=== PATIENT | male | born 1960 | race Caucasian/White ===

== ENCOUNTER 2023-04-13 06:21 | Day surgery (SDC) | payer MEDICARE, OTHER, SELFPAY ==
--- NOTE | 2023-04-11 15:05 | PTCARENOTE ---
Patient has Dialysis Mon, Wed, Fri- requested later start time to coincide with dialysis appointment. Message left on machine for Crystal @ [facility]
[2023-04-12 12:25] VITALS: BMI 36.8
--- NOTE | 2023-04-12 12:49 | PTCARENOTE ---
Patients 04/12 4.8- Crystal @ Dr. David office notified
[2023-04-13 13:20] VITALS: BP 108/58
[2023-04-13 13:24] LABS: Glucose - Point of Care 170 mg/dl (70-99)
[2023-04-13] MEDS: TYLENOL 1000 MG PO (13:25)
[2023-04-13] MEDS: NORMOSOL-R 1000 IV (13:27)
[2023-04-13 13:28] VITALS: BMI 35.0
[2023-04-13 13:29] VITALS: BMI 35.0
[2023-04-13 15:59] LABS: Glucose - Point of Care 177 mg/dl (70-99)
[2023-04-13 16:45] VITALS: BP 112/62
[2023-04-13 17:15] VITALS: BP 114/62
== END 2023-04-13 17:20 | disposition home or self-care (01) ==
LOC: SDS 06:21
PROVIDERS: ATTENDING PHYSICIAN Student in an Organized Health Care Education/Training Program
DX: T81.31XA Disruption of external operation (surgical) wound, not elsewhere classified, initial encounter (principal); S91.302A Unspecified open wound, left foot, initial encounter; Y83.8 Other surgical procedures as the cause of abnormal reaction of the patient, or of later complication, without mention of misadventure at the time of the procedure; E11.40 Type 2 diabetes mellitus with diabetic neuropathy, unspecified
CPT/HCPCS: 11044; 82962; 87070; 87075; 87077; 87186; 87205

== ENCOUNTER 2023-05-13 21:19 | Inpatient (IN) | payer MEDICARE, OTHER, SELFPAY ==
[2023-05-13] VITALS (7 sets, daily range): BP systolic 107–134; BP diastolic 60–80; BMI 34.6; BMI 33.4
[2023-05-13 17:26] LABS: % Basophils 0.6 % (0-2); % Eosinophils 0.7 % (0-6); % Immature Granulocytes 0.7 % (0-0.5); % Lymphocytes 3.9 % (20.5-51.1); % Monocytes 9.3 % (1.7-9.3); % Neutrophils 84.8 % (42.2-75.2); Absolute Basophils 0.1 10^3/uL (0-0.2); Absolute Eosinophils 0.1 10^3/uL (0-0.7); Absolute Immature Granulocytes 0.1 10^3/uL (0-0.05); Absolute Lymphocytes 0.4 10^3/uL (1.2-3.4); Absolute Monocytes 0.9 10^3/uL (0.1-0.6); Absolute Neutrophils 8.2 10^3/uL (1.4-6.5); Hematocrit 30.4 % (39.0-52.0); Hemoglobin 10.5 g/dL (13.0-18.0); Mean Corp Hgb Conc. 34.5 g/dL (33.0-37.0); Mean Corpuscular Hgb 31.2 pg (27.0-31.0); Mean Corpuscular Volume 90.2 fL (80.0-94.0); Mean Platelet Volume 9.3 fL (7.4-10.4); Nucleated Red Blood Cells % 0 % (-); Platelet Count 269 10^3/uL (130-400); Red Blood Cell Count 3.37 10^6/uL (4.70-6.10); Red Cell Dist. Width 13.9 % (11.5-14.5); White Blood Cell Count 9.6 10^3/uL (4.8-10.8)
[2023-05-13 17:39] LABS: Lactic Acid 3.2 mmol/L (0.7-2.0)
[2023-05-13 17:48] LABS: COVID-19 Antigen Negative (Negative)
[2023-05-13 17:53] LABS: ALT (SGPT) 31 U/L (0-50); AST (SGOT) 36 U/L (17-59); Albumin 3.6 g/dl (3.5-5.0); Alkaline Phosphatase 154 U/L (38-126); Blood Urea Nitrogen 67 mg/dl (9-20); Calcium 8.5 mg/dl (8.4-10.2); Carbon Dioxide 27 mmol/L (22-30); Chloride 92 mmol/L (98-107); Estimated Creatinine Clearance 16 ml/min; Glucose 275 mg/dl (70-99); Potassium 4.9 mmol/L (3.5-5.1); Sodium 130 mmol/L (135-145); Total Bilirubin 1.3 mg/dl (0.2-1.3); Total Protein 7.3 g/dl (6.3-8.2); eGFR 10.54
--- NOTE | 2023-05-13 19:50 | ED.GENMED ---
History of Present Illness
General
Chief Complaint: Weakness
Source: patient, records and ambulance crew
Exam Limitations: none
Time Seen by Provider: 05/13/23 17:20
Nursing documentation reviewed up to this point in time: agreed with
Travel History
Have you had any contact with someone who has COVID-19?: No
Do you have any symptoms of coronavirus? Fever > 100 degrees, chills, cough, shortness of breath, sore throat, loss of taste or smell, muscle aches, or headache?: No
History of Present Illness
History of Present Illness:
63-year-old male with a past medical history of hypertension, hyperlipidemia, CAD, CHF, insulin-dependent diabetes, ESRD on dialysis (M/W/ scheduling, last dialysis was this past Tuesday and he did not receive dialysis today) who presents to the
emergency department from home via EMS for evaluation of fatigue, generalized weakness, subjective fever/chills. Of note patient has been dealing with a chronic wound in the left lower extremity and has been following with Dr. Hall for this
issue. He had debridement and packing of these wounds in December and then again in March had incision and drainage with debridement of the wound and has had a wound VAC in place since then. He presents today because over the past week he tells
me that he has been feeling unwell. He says he has been very weak and fatigued. He says that he has had subjective fever and chills although no objective fever. Today when he presented to dialysis he was very lethargic and he was sent to the
emergency room for assessment. He did not receive dialysis. Triage note mentions nausea, vomiting, diarrhea although patient denies these things to me. He also denies abdominal pain. He does still make urine and has not noticed any dysuria or
change in frequency. He says he feels some mild shortness of breath. He has not been coughing he says. He denies chest pain. He says that he has leg pain but it does not necessarily seem worse than normal. Denies any other specific symptoms.
Past History
Past History
ED Past Medical History: CAD, CHF, HTN, Hypercholesterolemia, IDDM, NE, Renal failure and Other (PAD, obesity, sleep apnea, cardiomyopathy)
ED Past Surgical History: Cardiac, Tonsilectomy and Other (Vascular)
Social History
Tobacco: Non-smoker
Alcohol: None
Drug: None
Personal:
Living: with family
Employment: Employed
Family History
Family History: Negative Diabetes, Hypertension or CAD
Review of Systems
Review of Systems
All Other Systems: ROS reviewed and negative except as documented in HPI and ROS
Constitutional: Reports fever, fatigue and chills
EENT: Denies sore throat or runny nose
Respiratory: Reports trouble breathing; Denies cough
Cardiac: Denies chest pain or palpitations
ABD/GI: Denies abdominal pain, nausea, vomiting or diarrhea
: Denies flank pain
Musculoskeletal: Denies neck pain or back pain
Neurological: Denies dizzy, headache, weakness or numbness
Phy Exam
Physical Exam
Physical Exam:
General: Sitting in bed lethargic but arousable to voice and follows commands, oriented x 3
Head: Normocephalic, atraumatic
Eyes: Conjunctiva normal, pupils equal round and reactive to light bilaterally
Throat: Airway intact, handling secretions
Neck: Trachea midline, supple without meningismus
Lungs: Faint rales at the lung bases, slight hypoxia requiring 2 L nasal cannula; mild tachypnea
Heart: Tachycardia with regular rhythm, no murmurs, gallops, or rubs
Abd: Soft, non distended, nontender
Neuro: No gross deficits
Skin: no rash
Extremities: Patient has wound VAC in place on lateral left lower leg; he has some erythema extending from the margins of the wound towards the ankle; he has chronic venous stasis changes in his lower legs bilaterally; his distal extremities are
warm and well-perfused
Scores
Heart Failure Risk
Heart Failure Risk Score: Not Applicable
Heart Score for Chest Pain Patients
STEMI patient?: Not applicable
Withdrawal Assessment of Alcohol
Withdrawal Assessment Completed?: Not applicable
Course
Orders/Labs/Results
Orders:
Orders
05/13/23 17:09
Electrocardiogram (*1) Urgent
Reason for Study: Other
Other Reason for Exam: Possible Sepsis
Cardiac Monitoring- Treatment ONCE
EKG- Treatment ONCE
IV Insert/Care/Rem.- Treatment PRN
Urinalysis Reflex To Culture Urgent
Date Specimen was Collected: 05/13/23
Time Specimen was Collected: 17:09
CR Chest Portable - 1 View Urgent
Comment:
Reason For Exam: fever
Reason Study Needs to be Portable: Unable to Transport
O2 Therapy [RESP] Urgent
Titrate/Wean O2 to maintain O2 sat greater than (%): 93
Special Instructions: TO MAINTAIN CONTINUOUS O2 SATS > OR = 93%
Pulse Ox/cont/shift [RESP] Urgent
Quantity: 1
Special Instructions: CONTINUOUS
05/13/23 17:12
COVID-19 Antigen Urgent
Source: Nasal Swab
Complete Blood Count/With Diff Urgent
Comprehensive Metabolic Panel Urgent
Lactic Acid Q4H
Comment: ON ICE, CANCEL 2ND ORDER IF FIRST LACTIC ACID LEVEL <2
Blood Culture Q30M
NAM Source: Blood/Venous
Specimen Description:
Comment: FROM 2 SEPARATE SITES
Influenza A+B Rapid Molecular Urgent
NAM Source: Nasal Swab
Specimen Description:
05/13/23 17:15
Blood Culture Q30M
NAM Source: Blood/Venous
Specimen Description:
Comment: FROM 2 SEPARATE SITES
05/13/23 19:47
Piperacillin/Tazo 3.375 Gram [Zosyn] 3.375 gram in 50 ml IV NOW
05/13/23 19:55
Vancomycin [Vancocin] 2,000 mg 0.9% Sodium Chloride 500 ml [Nss] 500 ml IV NOW
05/13/23 20:00
VANCOMYCIN Pharmacy to Dose [VANCOCIN Pharmacy to Dose] 1 each Pharmacy To Prepare [Call Pharmacy To Prepare] 0 ml IV PER PROTOCOL
05/13/23 20:04
NEPHROLOGY CONSULT Urgent
Consulting Provider: Jun Barbour V.
Was physician already notified: Yes
05/13/23 21:15
Lactic Acid Q4H
Comment: ON ICE, CANCEL 2ND ORDER IF FIRST LACTIC ACID LEVEL <2
Abnormal Lab Results
05/13/23
17:12
RBC 3.37 L 10^6/uL
(4.70-6.10)
Hgb 10.5 L g/dL
(13.0-18.0)
Hct 30.4 L %
(39.0-52.0)
MCH 31.2 H pg
(27.0-31.0)
Abs Immat Gran (auto) 0.1 H 10^3/uL
(0-0.05)
Absolute Neuts (auto) 8.2 H 10^3/uL
(1.4-6.5)
Absolute Lymphs (auto) 0.4 L 10^3/uL
(1.2-3.4)
Absolute Monos (auto) 0.9 H 10^3/uL
(0.1-0.6)
Immature Gran % 0.7 H %
(0-0.5)
Neutrophils % 84.8 H %
(42.2-75.2)
Lymphocytes % 3.9 L %
(20.5-51.1)
Sodium 130 L mmol/L
(135-145)
Chloride 92 L mmol/L
(98-107)
BUN 67 H mg/dl
(9-20)
Creatinine 5.7 H* mg/dL
(0.7-1.3)
Glucose 275 H mg/dl
(70-99)
Lactic Acid 3.2 H mmol/L
(0.7-2.0)
Alkaline Phosphatase 154 H U/L
(38-126)
05/13/23 17:12
05/13/23 17:12
Vital Signs
Initial and Last Documented VS:
Initial Vital Signs
Temp Pulse Resp BP Pulse Ox
37.9 C 109 24 107/60 93
05/13/23 17:05 05/13/23 17:05 05/13/23 17:05 05/13/23 17:05 05/13/23 17:05
Last Documented Vital Signs
Temp Pulse Resp BP Pulse Ox
37.9 C 89 30 113/70 95
05/13/23 17:05 05/13/23 20:00 05/13/23 20:00 05/13/23 20:00 05/13/23 20:00
MDM/Problems Addressed
Differential Diagnosis Includes:
Infection including pneumonia, UTI, wound infection, bacteremia, viral syndrome; differential would also include electrolyte derangement, anemia, dehydration, polypharmacy
MDM/Problems Addressed:
63-year-old male with extensive medical history presents for generalized weakness and subjective fever/chills for the past week. Sent to the emergency room by dialysis today did not receive his treatment. He arrives to us tachycardic, tachypneic
with borderline fever at 100.3 �F, hypoxic requiring 2 L nasal cannula. Exam as above. Plan to place an IV check labs including a CBC and a CMP, lactate, blood cultures. Will send a urinalysis and culture. Will swab for COVID and influenza.
Will check a chest x-ray and EKG. Will monitor closely reassess after the above.
Labs reviewed: CBC shows stable anemia, no significant leukocytosis. CMP shows elevated BUN/creatinine in keeping with ESRD; he is hyperglycemic with no signs to suggest DKA. His lactate is elevated at 3.2. Urinalysis pending. Viral swabs
negative. Chest x-ray shows findings more consistent with interstitial edema although interstitial pneumonia consideration�certainly with missed dialysis would lean more towards interstitial edema although we will plan to cover patient with
broad-spectrum antibiotics for possible pneumonia; other consideration would be bacteremia with dialysis access versus lower extremity wounds potential portals for infection. Also could include cellulitis/osteomyelitis from left lower extremity
wound. Patient will need dialysis although no clear indication for emergent dialysis. Discussed with nephrology they will consult on patient. Discussed case with hospitalist for admission.
Chronic conditions affecting care:
ESRD requiring dialysis, diabetes
*Radiology
Radiology exam reviewed: preliminary read by ED provider and radiology read reviewed
*Pulse Oximetry
Patient hypoxic: yes
*EKG
Interpreted by ED Provider?: Yes
Heart Rate: 102
Rate: tachycardiac
Rhythm: sinus tachycardia
[place]: left axis deviation
Interval: normal interval
QRS Pattern: right bundle branch block
Ischemia: non-specific ST changes
*Critical Care Note
Total Time (30-74mins, 75-104mins- exclusive of procedures): Not Applicable
Data Reviewed
Source: patient, records and ambulance crew
Patient Management
Discussion with other providers: Hospitalist (Discussed with hospitalist) and Master Tax Advisor (Discussed with nephrology)
Escalation/DeEscalation of care consider admission/obs:
Admission indicated
ED Attending Note
-
Portions of this chart may have been created with voice recognition software.� Occasional wrong word or��sound alike� substitutions may have occurred due to the inherent limitations of voice recognition software.
Discharge Plan
Departure
Patient Disposition: Admit
Date of Disposition: 05/13/23
Time of Disposition: 20:04
Admit to doctor: Saurabh
Presentation/result/management discussed w/ accepting MD/DO: Hospitalist
Discharge Problem:
Wound infection, Pulmonary edema
Prescriptions:
No Action
atorvastatin 80 MG tablet
80 mg PO HS
aspirin 81 MG tablet,delayed release (DR/EC)
81 mg PO DAILY
carvedilol 3.125 mg Tablet
3.125 mg PO BID
levothyroxine 25 MCG tablet
25 mcg PO DAILY AT 0700
midodrine 5 mg Tablet
5 mg PO TID@0800,1300,1800 30 Days Qty: 90 0RF
acetaminophen [Tylenol Ex Str Arthritis Pain] 500 mg Tablet
1,000 mg PO Q6H PRN (Reason: mild pain)
insulin glargine [Lantus Solostar U-100 Insulin] 100 unit/mL (3 mL) Insulin Pen
80 unit SC HS
insulin aspart U-100 [Novolog FlexPen U-100 Insulin] 100 unit/mL (3 mL) insulin pen
20 unit SC AC
gabapentin 300 mg capsule
300 mg PO NOON
Referrals:
Syl Henry DO [Family Provider] -
Interventions
Interventions:
*Risk Screen - Suicide Last Done: 05/13/23 17:05
*General Assessment Last Done: 05/13/23 17:05
*Neglect/Abuse Screening Last Done: 05/13/23 17:05
*ED COVID-19 Vaccine History Last Done: 05/13/23 17:05
ED- Cardiac Assessment Last Done: 05/13/23 17:21
ED- Neurological Assessment Last Done: 05/13/23 17:21
ED- Pulmonary Assessment Last Done: 05/13/23 17:21
[2023-05-13] MEDS: ZOSYN 50 IV (19:57)
--- NOTE | 2023-05-13 20:33 | HPS.HSE ---
Addendum entered and electronically signed by Leonard Wiley DO 05/13/23 22:37:
Patient seen and examined independently. Agree with findings and plan as set forth by Savannah Patten PA-C.
Patient is a 63y M with PMH significant for ESRD on HD, DM-II and CHF who presents to ED complaining of generalized weakness and fatigue. Patient states that he had some nausea and loose stools 'the other day'. He denies any specific cough,
dyspnea, abdominal pain or urinary complaints. Patient states, 'my told me I had a fever'. Patient does note that he had loose stool / incontinence on arrival to HD session today and that is why he left dialysis. His brought him to the
ED for further evaluation.
Patient indicates that fecal incontinence is not an entirely uncommon occurrence for him.
Patient also notes that wound nurse reported some new, purulent discharge in the area of his chronic L heel ulcer during his most recent dressing / VAC change.
Ass:
Diarrhea / Fecal Incontinence
Fever / Fatigue
Left Heel Osteomyelitis / Chronic Wound
ESRD on HD
ASCVD
Chronic HFrEF
DM-II with Peripheral Neuropathy
Hypothyroidism
Plan:
Admit for further evaluation and treatment.
Will continue abx started in the ED for now pending further culture data.
Check stool studies given loose stool / incontinence. ? viral GE.
Podiatry evaluation for L heel exam / wound assessment.
Nephrology evaluation for HD needs during acute stay.
Continue usual outpatient med regimen.
Monitor for any new / focal symptoms or complaints.
Original Note:
Family Physician
-
Family Physician: Sofia Henry, DO
Chief Complaint
-
Weakness
History of Present Illness
Patient is a 63 year old male with PMH of end stage renal disease on dialysis, insulin-dependent type II diabetes mellitus, hypertension, and congestive heart failure who present to the ED via EMS complaining of fatigue and weakness. He was due for
dialysis today but did not receive it. His last dialysis treatment was this past Tuesday. He admits to one episode of diarrhea and dry heaving this morning. He has a chronic wound of his left lower extremity and had incision and drainage with
debridement in March 2023. He reports that the wound vac was replaced this morning and appeared to have more purulent drainage. He denies vomiting, cough, shortness of breath, abdominal pain, fever, sweats, and chills, but states that his
said he had a fever and chills.
Medical History
Past Medical History
Past Medical History: Reports Other
Additional Past Medical History:
ASCVD s/p CABG and LLE Stent
Chronic HFrEF
Essential Hypertension
Hyperlipidemia
Diabetes Mellitus
Diabetic Neuropathy
ESRD on HD
Chronic Thrombocytopenia
Hypothyroidism
Past Surgical History: Reports Other
Additional Past Surgical History:
CABG
LLE Stent
LUE AV Fistula
Social History
Tobacco: Former Smoker
Alcohol: None
Personal:
Living: With Family
Family History
Family History: Not pertinent
Allergies / Home Medications
Allergies reflects when Allergies were last updated in [facility].
Home Medications with original date entered in [facility]
Allergy/Medication List:
Allergies
Allergy/AdvReac Type Severity Reaction Status Date / Time
scallops Allergy Vomiting Verified 04/13/23 13:14
Home Medications
aspirin 81 mg tablet,delayed release 81 mg PO DAILY Blood clot prevention/tx 03/10/20
atorvastatin 80 mg tablet 80 mg PO HS High cholesterol 03/10/20
carvedilol 3.125 mg tablet 3.125 mg PO BID Heart Disease/Condition 08/18/22
levothyroxine 25 mcg tablet 25 mcg PO DAILY AT 0700 Thyroid 08/18/22
midodrine 5 mg tablet 5 mg PO TID@0800,1300,1800 30 days #90 tabs 10/18/22
acetaminophen 500 mg tablet 1,000 mg PO Q6H PRN mild pain 12/28/22
insulin glargine 100 unit/mL (3 mL) subcutaneous pen (Lantus Solostar U-100 Insulin) 80 unit SC HS 12/28/22
insulin aspart U-100 100 unit/mL (3 mL) subcutaneous pen (Novolog FlexPen U-100 Insulin aspart) 20 unit SC AC 04/11/23
gabapentin 300 mg capsule 300 mg PO NOON 05/13/23
Review of Systems
-
A 12 point ROS was completed and negative except as noted: Yes
Constitutional: Reports Fever; Denies Night Sweats or Chills
Respiratory: Denies Cough or Trouble Breathing
Cardiac: Denies Chest Pain or Palpitations
Abdomen/GI: Reports Nausea and Diarrhea (One episode this morning); Denies Abdominal Pain or Vomiting (Reports some dry heaves this morning)
: Denies Dysuria or Frequency
Physical Exam
Vital Signs
Vital Signs
Temp Pulse Resp BP Pulse Ox
100.3 F 89 30 113/70 95
05/13/23 17:05 05/13/23 20:00 05/13/23 20:00 05/13/23 20:00 05/13/23 20:00
Physical Exam
General: Comfortable and Conversant
HEENT: Anicteric and Moist mucous membranes
Respiratory: Rales (Bilateral bases) and Non Labored Respirations
Cardiac: S1/S2, Regular Rhythm and Murmur (2/6 systolic murmur)
GI: Soft, Non Tender and Other (Protuberant)
Rectal: Deferred by Provider
Musculoskeletal: No Clubbing and No Cyanosis
Skin: Warm, Dry and Other (Wound Vac in place to the left foot/heel)
Neuro: Awake, Alert, Oriented and Nonfocal/grossly intact
Psych: Calm
Laboratory Results
-
05/13/23 17:12
05/13/23 17:12
Laboratory Results
Lactic Acid 3.2 mmol/L (0.7-2.0) H 05/13/23 17:12
Total Bilirubin 1.3 mg/dl (0.2-1.3) 05/13/23 17:12
AST 36 U/L (17-59) 05/13/23 17:12
ALT 31 U/L (0-50) 05/13/23 17:12
Alkaline Phosphatase 154 U/L (38-126) H 05/13/23 17:12
Data Reviewed
-
Lab Data: Labs Reviewed by me
Old Records: Reviewed
Impression/Plan
-
Generalized Weakness/Fatigue with Low Grade Fever, possible Left Heel Wound Infection
-Consult Podiatry
-Consult Wound Care
-Continue Vancomycin and Zosyn
ESRD on HD
-Consult Nephrology
-Usual dialysis days are MoWeFr, however patient did not received HD today May 12
-Plan for HD tomorrow
ASCVD s/p CABG and LLE Stent
-Continue aspirin
Chronic HFrEF
-Monitor Is&Os and Daily Weights
Hyperlipidemia
-Continue atorvastatin
Diabetes Mellitus, Type II
-Continue Lantus and Novolog
-Monitor sugars and continue coverage insulin
Diabetic Neuropathy
-Continue gabapentin
Hypothyroidism
-Continue Synthroid
DVT proph: SC Heparin
Code Status: Full Code
[2023-05-13] MEDS: VANCOCIN 540 MG IV (20:49)
[2023-05-13] MEDS: TYLENOL 1000 MG PO (22:50)
[2023-05-13] MEDS: LIPITOR 80 MG PO (22:50)
[2023-05-13 22:52] LABS: Glucose - Point of Care 272 mg/dl (70-99)
[2023-05-13] MEDS: HEPARIN 5000 UNITS SC (22:52)
[2023-05-13] MEDS: LANTUS 0.800000000000000044 UNITS SC (22:53)
[2023-05-13 23:43] LABS: Lactic Acid 1.2 mmol/L (0.7-2.0)
[2023-05-14] VITALS (7 sets, daily range): BP systolic 80–129; BP diastolic 51–65; O2SAT 95; BMI 33.4
[2023-05-14] MEDS: ZOSYN 50 IV ×3 (04:38→20:59)
--- NOTE | 2023-05-14 05:47 | PTCARENOTE ---
Received pt from ED, transported via stretcher, pulled over to hospital bed by staff x3, 2000mg bag of Vancomycin infusing through R wrist, see APR. Pt AAOx3, tolerating 2L O2 at 98%, denies pain, remainder of assessment as documented. Pt with with
vac intact to LLE extending to L heel, dressing dry and intact, pump set to 125mm/hg. Pt with multiple wounds, see Wound Management documentation, wound care performed. Pt oriented to unit and call quinn, bed alarm in place, pt resting comfortably
with call quinn in hand.
[2023-05-14] MEDS: SYNTHROID 25 MCG PO (06:35)
--- NOTE | 2023-05-14 07:49 | PHA.VAN.IN ---
Addendum entered and electronically signed by Raz Johnson [facility] 05/14/23 09:32:
dialysis scheduled for today 05/13, random level ordered for 05/14 in am
Original Note:
Assessment
- Assessment
Renal Function: Patient has ESRD, on chronic Hemodialysis
Hemodialysis Schedule: MWF (last dialysis 05/10)
Concomitant Antimicrobials: zosyn
Plan
- Plan
Initial / Loading Dose: prn by level, no sure of next dialysis day
Monitoring: no level today, consider for tomorrow or when dialysis is scheduled
Pharmacokinetics Vancomycin I
- -
Patient Age: 63
Patient Sex: Male
Vancomycin Day #: 1
Indication: Skin And Soft Tissue
Requesting Provider: aby thomas
Height / Weight:
Height 5 ft 9 in
Actual Weight 102.512 kg
IBW in k.7
- Vital Signs / Lab Results
Temp Pulse Resp BP Pulse Ox
101.4 F H 89 18 111/64 98
05/13/23 22:00 05/13/23 22:00 05/13/23 22:00 05/13/23 22:00 05/14/23 01:42
Lab Results - Hematology
05/13/23
17:12
WBC 9.6
Lab Results - Chemistry
05/13/23
17:12
BUN 67 H
Creatinine 5.7 H*
Estimated Creat Clear 16
Albumin 3.6
05/13/23 05/13/23
17:12 23:18
Lactic Acid 3.2 H 1.2
Microbiology Results
05/13/23 17:15 Blood Culture - Preliminary
Blood/Venous Positive culture in progress
Gram Stain - Final
05/13/23 17:12 Blood Culture - Preliminary
Blood/Venous Positive culture in progress
Gram Stain - Preliminary
05/13/23 17:12 Influenza Types A & B ([facility]) - Final
Nasal Swab Negative for Influenza A & B, NAAT
Negative results must be combined with clinical observations
and patient history.
Nucleic Acid Amplification test (NAAT)performed on the
[employer] platform.
[2023-05-14] MEDS: TYLENOL 1000 MG PO ×2 (08:15→17:41)
[2023-05-14] MEDS: ProAmatine 5 MG PO ×4 (08:19→23:59)
[2023-05-14] MEDS: HEPARIN SC (08:21)
[2023-05-14 08:23] LABS: Glucose - Point of Care 204 mg/dl (70-99)
[2023-05-14] MEDS: NOVOLOG FLEXPEN-HIGH RESISTANCE 4 UNITS SC (08:23)
[2023-05-14 08:35] LABS: Hematocrit 31.9 % (39.0-52.0); Hemoglobin 10.5 g/dL (13.0-18.0); Mean Corp Hgb Conc. 32.9 g/dL (33.0-37.0); Mean Corpuscular Hgb 30.3 pg (27.0-31.0); Mean Corpuscular Volume 91.9 fL (80.0-94.0); Mean Platelet Volume 9.6 fL (7.4-10.4); Platelet Count 266 10^3/uL (130-400); Red Blood Cell Count 3.47 10^6/uL (4.70-6.10); Red Cell Dist. Width 14.2 % (11.5-14.5); White Blood Cell Count 8.6 10^3/uL (4.8-10.8)
[2023-05-14 08:43] LABS: Glycohemoglobin (HgbA1c) 9.3 % (4.0-5.6)
--- NOTE | 2023-05-14 09:04 | W.PN.NEPH.HD ---
Assessment
-
Patient seen on hemodialysis
Systolic blood pressure 111 at current UF for 2 kg
Gram-positive cocci bloodstream likely due to underlying heel wound
Left upper extremity AV fistula with good function
Progress Note - Hemodialysis
-
Date of Service: May 14, 2023
Duration: 30 minutes and 3 hours
Potassium Bath: 2
Calcium Bath: 2.5
Opti-Dialyzer: 160
Ultrafiltration: Other (2)
Blood Flow: 400
Dialysate Flow: 600
Heparin: None
EPO: None
[2023-05-14] MEDS: MANNITOL 12.5 GRAMS IV ×2 (09:05→10:05)
--- NOTE | 2023-05-14 09:06 | W.CON.NEPH ---
Consultation
-
Date/Time Consultation Requested: May 14, 2023 7:00 AM
Date/Time Consultation Performed: May 14, 2023 8:30 AM
Requesting Provider: Abdirashid
Performing Provider: nannette
Reason for Consultation: End-stage renal disease
Medical History
-
Chief Complaint: End-stage renal
History of Present Illness:
The patient is a 63-year-old male with a past medical history of end-stage renal disease on dialysis Tuesday at the [facility] dialysis unit. He has a longstanding history of diabetes with multiple microvascular
complications including ongoing poorly healing left heel wound. He is maintained on insulin for his diabetes. He is maintained chronically on midodrine for chronic hypotension. He receives MATTHIEU therapy for his anemia of chronic kidney disease. He
presented to the hospital last evening with fevers Malaise and loose stool. There was a strong suspicion that his underlying fevers and leukocytosis were due to his heel wound and he has now grown out gram-positive cocci in his bloodstream. We
were consulted for his end-stage renal disease manage as he was not dialyzed yesterday.
Past Medical History
1. ESRD on dialysis TTS at [facility] since 2019 due to diabetic
� � nephropathy.
2. Diabetes type 2, microvascular complications of neuropathy and
� � nephropathy.
3. CAD with CABG 2017 and subsequent stents in 2021.
4. Hypertension, now relative hypotension.
5. Hyperlipidemia.
6. Pulmonary hypertension.
7. Hypothyroidism.
8. Sleep apnea.
9. Chronic fluid overload due to dietary indiscretions.
10.Ischemic cardiomyopathy, EF 30%.
11.History of peripheral vascular disease and right toe
� � amputation.
12.Recent history of left foot wound and peripheral vascular
� � disease, bilateral lower extremity stenting.
13.Sleep apnea.
14.Sleep apnea surgery.
15.Nasal polypectomy.
16.Left upper extremity AV fistula.
�
Social History
Ex tobacco
No current alcohol abuse, he does drink occasional
Family History
No chronic kidney disease
Allergies / Home Medications
Allergy/AdvReac Type Severity Reaction Status Date / Time
scallops Allergy Vomiting Verified 04/13/23 13:14
Medication Instructions Recorded Confirmed Type
aspirin 81 mg tablet,delayed 81 mg PO DAILY Blood clot 03/10/20 05/13/23 History
release prevention/tx
atorvastatin 80 mg tablet 80 mg PO HS High cholesterol 03/10/20 05/13/23 History
carvedilol 3.125 mg tablet 3.125 mg PO BID Heart 08/18/22 05/13/23 History
Disease/Condition
levothyroxine 25 mcg tablet 25 mcg PO DAILY AT 0700 Thyroid 08/18/22 05/13/23 History
midodrine 5 mg tablet 5 mg PO TID@0800,1300,1800 30 days 10/18/22 05/13/23 Rx
#90 tabs
acetaminophen 500 mg tablet 1,000 mg PO Q6H PRN mild pain 12/28/22 05/13/23 History
insulin glargine 100 unit/mL (3 80 unit SC HS Diabetes 12/28/22 05/13/23 History
mL) subcutaneous pen (Lantus
Solostar U-100 Insulin)
insulin aspart U-100 100 unit/mL 20 unit SC AC Diabetes 04/11/23 05/13/23 History
(3 mL) subcutaneous pen (Novolog
FlexPen U-100 Insulin aspart)
gabapentin 300 mg capsule 300 mg PO NOON Pain 05/13/23 05/13/23 History
Review of Systems
-
History Source: Patient
All other systems: Negative unless noted
Constitutional: Fever and Fatigue
EENT: No Symptoms
Respiratory: No Symptoms
Cardiac: No Symptoms
Abdomen/GI: Nausea and Diarrhea (Some noted loose stools with incontinence)
: No Symptoms
Musculoskeletal: Edema (Plus edema with noted heel wound)
Skin: No Symptoms
Neurological: Other (Noted lower extremity neuropathy)
Endocrine: No Symptoms
Hematologic/Lymphatic: Other (Left upper extremity AV fistula)
Physical Exam
Vital Signs
Vital Signs
Temp Pulse Resp BP Pulse Ox
101.6 F H 94 18 106/65 94
05/14/23 07:40 05/14/23 07:40 05/14/23 07:40 05/14/23 07:40 05/14/23 07:40
Lab Results
05/14/23 07:01
05/14/23 07:01
WBC 8.6 10^3/uL (4.8-10.8) 05/14/23 07:01
RBC 3.47 10^6/uL (4.70-6.10) L 05/14/23 07:01
Hgb 10.5 g/dL (13.0-18.0) L 05/14/23 07:01
Hct 31.9 % (39.0-52.0) L 05/14/23 07:01
Plt Count 266 10^3/uL (130-400) 05/14/23 07:01
eGFR 10.54 05/13/23 17:12
Albumin 3.6 g/dl (3.5-5.0) 05/13/23 17:12
Physical Exam
General: AOx3
HEENT: PERRL, EOMI, Anicteric, Conjunctivae Clear, Ear/Nose Intact, Neck Supple, Trachea Midline, No JVD and No Thyromegaly
Respiratory: Clear
Cardiac: S1/S2 and Regular Rate/Rhythm
Breast: Deferred by me
Abdomen: Soft, Nontender, Nondistended and Normal Bowel Sounds
Rectal: Other
Genito-urinary: Other
Musculoskeletal: Cyanosis and Other (plus edema, left upper extremity AV fistula with good thrill and bruit)
Skin: No Rash
Neuro: Nonfocal/Grossly Intact and Other (neurosensory loss)
Hematologic/Lymphatic: No Cervical Lymphadenopathy and No Supraclavicular Lymphadenopathy
Psych: Mood/afflect pleasant
Assessment/Plan
-
Impression;
Fevers/Sepsis/gram Positive bacteremia
End-stage renal disease Tuesday
Left heel wound infection
Diabetes
History of CABG and left lower extremities to
History of congestive heart
Diabetic neuropathy
Hypothyroid
Chronic Hypotension
Anemia
Ischemic cardiomyopathy EF 30%
Pulmonary hypertension
Left upper extremity AV
Plan:
-Patient will undergo hemodialysis today orders provide
-Zosyn and vancomycin will be appropriately renally dosed
-Broad-spectrum antibiotics provided for gram-positive bacteremia likely due to left heel wound
-Left upper extremity AV fistula with good no evidence of infection
-Will provide MATTHIEU therapy as needed for anemia
-Midodrine provided for chronic hypotension
-Appropriate dietary and fluid restrictions to be ordered for ESRD
Data Reviewed
-
Radiology: Image Personally Visualized and interpreted (Chest x-ray personally reviewed by myself no evidence of infiltrate sternal wires noted some bilateral interstitial edema)
Labs: Labs Reviewed by me (Reviewed BMP CBC chest x-ray)
Old Records: Reviewed (Reviewed nephrology consult from September 2022 when patient presented for ESRD and left heel wound)
[2023-05-14 09:19] LABS: Blood Urea Nitrogen 79 mg/dl (9-20); Calcium 8.4 mg/dl (8.4-10.2); Carbon Dioxide 24 mmol/L (22-30); Chloride 92 mmol/L (98-107); Estimated Creatinine Clearance 14 ml/min; Glucose 185 mg/dl (70-99); Magnesium 2.2 mg/dl (1.6-2.3); Sodium 131 mmol/L (135-145); eGFR 9.17
--- NOTE | 2023-05-14 10:21 | PTCARENOTE ---
Pt will pull off o2 at times.. This am on 2L of o2 he was 94%. Ra pox at sleep 86-87%. P currently getting HD.
[2023-05-14 13:12] LABS: Glucose - Point of Care 105 mg/dl (70-99)
[2023-05-14] MEDS: NOVOLOG FLEXPEN-HIGH RESISTANCE SC ×4 (13:13→17:44)
[2023-05-14] MEDS: NEURONTIN 300 MG PO (13:20)
[2023-05-14] MEDS: ASPIR LOW (ENTERIC COATED) 81 MG PO (13:20)
[2023-05-14] MEDS: FLUSH (NSS) 2 FLUSH IV (13:21)
[2023-05-14] MEDS: COREG PO ×2 (13:31→21:00)
[2023-05-14] MEDS: NOVOLOG FLEXPEN-HIGH RESISTANCE 1 UNITS SC (13:33)
[2023-05-14] MEDS: NOVOLOG FLEXPEN-HIGH RESISTANCE 20 UNITS SC (13:33)
--- NOTE | 2023-05-14 14:08 | W.PN.HOSP.TC ---
Today's Communication/Plan
-
CW ABX
DC Vanco
Consult ID
CW HD
Await podiatry input
Assessment / Plan
Assessment / Plan
Generalized Weakness/Fatigue with Fever sec to infection
Streptococcus agalactiae bacteremia-suspect from left foot. Consult ID. Continue with antibiotics
Chronic left heel wound-consult podiatry. Patient has been following podiatry for long time. Last debridement a week ago.
-Consult Podiatry
-Consult Wound Care
ESRD on HD
-Usual dialysis days are MoWe[facility], however patient did not received HD today May 12
-HD ongoing today
Acute hypoxic respiratory insufficieny
Pt on O2;cxr �Diffusely increased interstitial markings which i suspect clinically interstitial edema
Follow with HD
ASCVD s/p CABG and LLE Stent
-Continue aspirin
Chronic HFrEF
-Monitor Is&Os and Daily Weights
Hyperlipidemia
-Continue atorvastatin
Diabetes Mellitus, Type II
-Continue Lantus and Novolog
-Monitor sugars and continue coverage insulin
Diabetic Neuropathy
-Continue gabapentin
Hypothyroidism
-Continue Synthroid
DVT proph: SC Heparin
Code Status: Full Code
Total time spent on today's encounter was 52 minutes which included time spent in counseling the patient regarding diagnosis and treatment plan as listed above, goals of care, and symptom management. Case was discussed with nursing staff,
specialists, . All labs and imaging personally reviewed by me. Remainder the time spent in detailed review of previous records, lab data, imaging, and other medical provider documentation.
Anticipated Discharge: > 48 hours
Subjective/Interval History
-
Date of Service: May 14, 2023
Feeling bit better.
Denies shortness of breath at rest. Currently receiving hemodialysis. He is on nasal cannula 2 L without any respiratory distress.
No nausea vomiting.
Objective Data
-
Labs:
Laboratory Results
05/14/23
07:01
WBC 8.6
Hgb 10.5 L
Hct 31.9 L
Plt Count 266
Sodium 131 L
Potassium 5.0
Chloride 92 L
Carbon Dioxide 24
BUN 79 H
Creatinine 6.4 H*
Glucose 185 H
Calcium 8.4
Vital Signs:
Vital Signs
Temp Pulse Resp BP Pulse Ox
98.8 F 79 18 103/58 94
05/14/23 10:00 05/14/23 13:31 05/14/23 07:40 05/14/23 13:31 05/14/23 07:40
I&O
05/13/23 05/14/23 05/15/23
06:59 06:59 06:59
Intake Total 240 / 240
Balance 240 / 240
Review of Systems
-
Constitutional: Reports Fever; Denies Chills
EENT: Denies Sore Throat
Respiratory: Denies Cough
Abdomen/GI: Denies Abdominal Pain, Nausea, Vomiting or Diarrhea
Genitourinary: Denies Dysuria
Neuro: Denies Dizzy
Physical Exam
-
General: No Apparent Distress
HEENT: Moist Mucous Membranes
Respiratory: Crackles (few bibasal); Negative Wheezes
Cardiac: Regular Rhythm and S1/S2
GI: Soft, Nontender, Nondistended and Normal Bowel Sounds
Neuro: AO x 3
Psych: Calm
Data Reviewed
-
Labs: Labs Reviewed by me
--- NOTE | 2023-05-14 16:01 | CM ---
Reviewed the chart notes and spoke with the patient at the bedside. The patient resides with his spouse in a two story home with one step to enter. The patient has a rolling walker and has had [facility] in the past. The patient has been to [facility]. The patient receives HD M-W- at [facility]. The patient confirmed his pharmacy of choice is the [facility]. CM continues to be available to patient/family and is monitoring medical plan for needs at discharge.
Plan: Discharge plans will depend on the patient's progress.
--- NOTE | 2023-05-14 16:41 | CON.ID ---
Consultation
-
Date/Time Consultation Requested: 05/14/23 12:42
Date/Time Consultation Performed: 05/14/23 16:42
Requesting Provider: Dr Iraheta
Performing Provider: Dr Sales
Reason for Consultation: Bacteremia
Chief Complaint / Past History
Chief Complaint
purulent drainage from L heel wound at vac change
History of Present Illness
Mr Harrison is a 63 year old male with ESRD on HD, Dm2, chf who presentd here for weakness and fatigue; reported fever and he was found to have purulence at the site of a chronic heel wound when the wound vac was changed. Denied: cough,
dyspnea, abdominal pain or urinary complaints. Also some loose stool on arrival to HD.
Since arrival he has been febrile to 101.6, bp stable, wbc 8.6, hg b10.5, plt 266, L shift is noted, eos normal, K 5.0, cr 6.4, a1c 9.3, t bili 1.3, ast 36, alt 31, alk phos 154, a ua is pending, serology neg, a foot Xray is done but not yet read -
will await formal radiology input, suspect neuropathic foot, a wound culture is in progress as are anaerobic cultures, blood cultures x2 in progress - GBS; previous 04/13/23 wound culture enterobacter, alcaligenes, gnr; patient currently on zosyn.
ID is consulted for assistance with management
Past History
Additional Past Medical History:
ASCVD s/p CABG and LLE Stent
Chronic HFrEF
Essential Hypertension
Hyperlipidemia
Diabetes Mellitus
Diabetic Neuropathy
ESRD on HD
Chronic Thrombocytopenia
Hypothyroidism
Additional Past Surgical History:
CABG
LLE Stent
LUE AV Fistula
Allergy History:
scallops Allergy (Verified 04/13/23 13:14)
Vomiting
Medications Reviewed: Yes
Social History
Tobacco: Former Smoker
Alcohol: None
Personal:
Family History
Family History: Not Pertinent
Review of Systems
Review of Systems
General: Negative Fever or Chills
All systems: All other systems were reviewed and were negative
Vital Signs
Temp Pulse Resp BP Pulse Ox
100.5 F H 94 18 105/52 96
05/14/23 15:35 05/14/23 15:35 05/14/23 15:35 05/14/23 15:35 05/14/23 15:35
Physical Exam
Physical Exam
Constitutional: No Acute Distress
Cardiovascular: Regular Rate and S1/S2; Negative Murmur or Rub
Pulmonary: Clear and Symmetric; Negative Wheezes, Rales or Rhonchi
Gastrointestinal: Soft, Non Tender, Non Distended and Normal Bowel Sounds
Skin: Warm and Dry; Negative Rash or Jaundice
Wound: Other (dressing clean, dry, intact)
Neurological: Awake
Lab / Diagnostic Study Results
05/14/23 07:01
05/14/23 07:01
Abs Immat Gran (auto) 0.1 10^3/uL (0-0.05) H 05/13/23 17:12
Absolute Neuts (auto) 8.2 10^3/uL (1.4-6.5) H 05/13/23 17:12
Absolute Lymphs (auto) 0.4 10^3/uL (1.2-3.4) L 05/13/23 17:12
Absolute Monos (auto) 0.9 10^3/uL (0.1-0.6) H 05/13/23 17:12
Absolute Basos (auto) 0.1 10^3/uL (0-0.2) 05/13/23 17:12
Immature Gran % 0.7 % (0-0.5) H 05/13/23 17:12
Neutrophils % 84.8 % (42.2-75.2) H 05/13/23 17:12
Lymphocytes % 3.9 % (20.5-51.1) L 05/13/23 17:12
Monocytes % 9.3 % (1.7-9.3) 05/13/23 17:12
Eosinophils % 0.7 % (0-6) 05/13/23 17:12
Basophils % 0.6 % (0-2) 05/13/23 17:12
Lactic Acid 1.2 mmol/L (0.7-2.0) 05/13/23 23:18
Microbiology Results
Micro:
05/14/23 16:28 Anaerobic Culture - Pending
Foot - Left
05/14/23 16:28 Wound Culture - Pending
Foot - Left Gram Stain - Pending
05/13/23 17:12 Blood Culture - Preliminary
Blood/Venous Streptococcus agalactiae
Gram Stain - Final
05/13/23 17:15 Blood Culture - Preliminary
Blood/Venous Positive culture in progress
Gram Stain - Final
05/14/23 06:50 MRSA Screen - Pending
Nose
05/13/23 17:12 Influenza Types A & B ([facility]) - Final
Nasal Swab Negative for Influenza A & B, NAAT
Negative results must be combined with clinical observations
and patient history.
Nucleic Acid Amplification test (NAAT)performed on the
[employer] platform.
Assessment / Plan
Fevers
Chronic Foot wound
- follow up radiology read of xray
- podiatry consulted
- follow up wound culture
- continue zosyn
- follow clinically
[2023-05-14 17:32] LABS: Glucose - Point of Care 70 mg/dl (70-99)
[2023-05-14] MEDS: HEPARIN 5000 UNITS SC ×2 (17:42→23:13)
--- NOTE | 2023-05-14 18:00 | PTCARENOTE ---
Pt wound vac needing to be charged. Medical Information Specialist at home pt states. Will call to bring in his pharmaceutical analyst. Will cont to monitor.
--- NOTE | 2023-05-14 18:03 | PTCARENOTE ---
Called pt's to bring in wound vac distance learning program coordinator.
[2023-05-14 19:07] LABS: Glucose - Point of Care 128 mg/dl (70-99)
[2023-05-14 22:00] LABS: Glucose - Point of Care 128 mg/dl (70-99)
[2023-05-14] MEDS: LANTUS 0.800000000000000044 UNITS SC (23:00)
[2023-05-14] MEDS: LIPITOR 80 MG PO (23:00)
[2023-05-15 02:08] VITALS: BP 92/50
--- NOTE | 2023-05-15 02:08 | PTCARENOTE ---
Pt hypotensive at HS, denies dizziness or any other symptoms. BP 91/50, 77 scheduled [employer]d and parking station attendant [employer] CAR[employer] made aware. Rechecked BP and 82/54, 76, R[employer]AL [employer] CARETAKER made aware again and new order for midodrine 5 mg administered. Pt remains aaox3 and easily
arousable. Will continue to monitor, see VS documentation.
[2023-05-15] MEDS: ZOSYN 50 IV ×3 (04:02→20:24)
[2023-05-15] MEDS: ProAmatine 5 MG PO ×4 (04:15→17:41)
[2023-05-15 05:16] VITALS: BP 94/55
[2023-05-15 05:46] VITALS: BMI 33.3
[2023-05-15 06:00] VITALS: BMI 33.3
[2023-05-15] MEDS: SYNTHROID 25 MCG PO (06:27)
[2023-05-15 07:20] VITALS: BP 93/55
[2023-05-15 07:28] LABS: Glucose - Point of Care 129 mg/dl (70-99)
--- NOTE | 2023-05-15 08:30 | W.PN.UPDATE ---
Update Note
Progress Note Update
Status post left lower extremity I&D with bone debridement and wound VAC placement April 13, 2023. Patient unfortunately appears to be doing worse and Dr. Hall saw him yesterday and ordered an MRI of the left lower extremity. MRI to be
performed and Dr. Hall will follow-up afterwards.
[2023-05-15] MEDS: ASPIR LOW (ENTERIC COATED) 81 MG PO (09:15)
[2023-05-15] MEDS: COREG PO ×2 (09:15→20:28)
[2023-05-15] MEDS: HEPARIN 5000 UNITS SC ×3 (09:15→22:10)
[2023-05-15] MEDS: NOVOLOG FLEXPEN-HIGH RESISTANCE 20 UNITS SC ×2 (09:17→12:39)
[2023-05-15] MEDS: NOVOLOG FLEXPEN-HIGH RESISTANCE 1 UNITS SC ×2 (09:17→12:31)
--- NOTE | 2023-05-15 11:37 | W.PN.NEPH.PH ---
Today's Communication / Plan
-
Dialysis tomorrow
Assessment/Plan
-
Impression;
Fevers/Sepsis/gram Positive bacteremia
End-stage renal disease Tuesday
Left heel wound infection
Diabetes
History of CABG and left lower extremities to
History of congestive heart
Diabetic neuropathy
Hypothyroid
Chronic Hypotension
Anemia
Ischemic cardiomyopathy EF 30%
Pulmonary hypertension
Left upper extremity AV
Plan:
-HD for tomorrow orders provided
-Midodrine has been utilized for hypotension
-Zosyn appropriately renally dosed for left heel wound with strong suspicion for osteomyelitis
-Streptococcus agalactia bacteremia noted
-Left upper extremity AV fistula with good function on
-Will provide MATTHIEU therapy as needed for anemia
-Appropriate dietary and fluid restrictions to be ordered for ESRD
-
-
Date of Service: May 15, 2023
CC / HPI / ROS
-
Chief Complaint:
End-stage renal disease
History of Present Illness:
End-stage renal disease on Tuesday schedule
Hemodynamically labile on midodrine support
On Zosyn for strep agalactiae bacteremia
Review of Systems:
No chest pain or shortness of breath
Fevers noted
Labs
-
Labs:
WBC 8.6 10^3/uL (4.8-10.8) 05/14/23 07:01
RBC 3.47 10^6/uL (4.70-6.10) L 05/14/23 07:01
Hgb 10.5 g/dL (13.0-18.0) L 05/14/23 07:01
Hct 31.9 % (39.0-52.0) L 05/14/23 07:01
Plt Count 266 10^3/uL (130-400) 05/14/23 07:01
Sodium 131 mmol/L (135-145) L 05/14/23 07:01
Potassium 5.0 mmol/L (3.5-5.1) 05/14/23 07:01
Chloride 92 mmol/L (98-107) L 05/14/23 07:01
Carbon Dioxide 24 mmol/L (22-30) 05/14/23 07:01
BUN 79 mg/dl (9-20) H 05/14/23 07:01
Creatinine 6.4 mg/dL (0.7-1.3) H* 05/14/23 07:01
eGFR 9.17 05/14/23 07:01
Glucose 185 mg/dl (70-99) H 05/14/23 07:01
Calcium 8.4 mg/dl (8.4-10.2) 05/14/23 07:01
Albumin 3.6 g/dl (3.5-5.0) 05/13/23 17:12
Physical Exam
-
Vital Signs:
Vital Signs
Temp Pulse Resp BP Pulse Ox
98.3 F 79 18 93/55 98
05/15/23 07:20 05/15/23 07:20 05/15/23 07:20 05/15/23 07:20 05/15/23 07:20
Cardiovascular:: Regular rate and rhythm
Respiratory:: Bilateral: CTA
Lung Excursion:: Normal
Abdomen:: Nontender and Soft
Bowel Sounds:: Normal
Extremity Edema:: +1: Bilateral:
Ritchie Catheter: No
[2023-05-15 12:18] LABS: Glucose - Point of Care 104 mg/dl (70-99)
[2023-05-15] MEDS: NEURONTIN 300 MG PO (12:30)
[2023-05-15] MEDS: FLUSH (NSS) 2 FLUSH IV (12:31)
--- NOTE | 2023-05-15 14:49 | W.PN.HOSP.TC ---
Today's Communication/Plan
-
CW ABX
Follow MRI foot
Assessment / Plan
Assessment / Plan
Generalized Weakness/Fatigue with Fever sec to infection - improved
Streptococcus agalactiae bacteremia-suspect from left foot. Appt ID input. Continue with Zosyn
Chronic left heel wound- podiatry following. Patient has been following podiatry for long time. Last debridement a week ago.
-MRI foot ordered
-cw Wound Care
ESRD on HD
-Usual dialysis days are MoWeFr, however patient did not received HD today May 12
-HD tomorrow
Acute hypoxic respiratory insufficieny
Pt on O2;cxr �Diffusely increased interstitial markings which i suspect clinically interstitial edema
Resolved with HD
ASCVD s/p CABG and LLE Stent
-Continue aspirin
Chronic HFrEF
-Monitor Is&Os and Daily Weights
Hyperlipidemia
-Continue atorvastatin
Diabetes Mellitus, Type II
-Continue Lantus and Novolog
-Monitor sugars and continue coverage insulin
Diabetic Neuropathy
-Continue gabapentin
Hypothyroidism
-Continue Synthroid
DVT proph: SC Heparin
Code Status: Full Code
Anticipated Discharge: Today
Subjective/Interval History
-
Date of Service: May 15, 2023
No further fever
Breathing improved. Off of oxygen.
No nausea vomiting.
Objective Data
-
Vital Signs:
Vital Signs
Temp Pulse Resp BP Pulse Ox
98.3 F 79 18 93/55 98
05/15/23 07:20 05/15/23 07:20 05/15/23 07:20 05/15/23 07:20 05/15/23 08:30
I&O
05/14/23 05/15/23 05/16/23
06:59 06:59 06:59
Intake Total 240 / 240 720 / 720
Output Total 400 / 400
Balance 240 / 240 320 / 320
Review of Systems
-
Constitutional: Denies Fever or Chills
EENT: Denies Sore Throat
Respiratory: Denies Cough
Cardiac: Denies Chest Pain
Neuro: Denies Dizzy
Physical Exam
-
General: No Apparent Distress
HEENT: Moist Mucous Membranes
Respiratory: Clear to Auscultation
Cardiac: Regular Rhythm and S1/S2
GI: Soft
Musculoskeletal: Other (left foot in dressing)
Neuro: AO x 3
Data Reviewed
-
Labs: Labs Reviewed by me
--- NOTE | 2023-05-15 15:15 | PTCARENOTE ---
Pt c/o burning when voiding this afternoon. Bladder scanned pt for est 60mls or urine. Will cont to monitor.
[2023-05-15 15:30] VITALS: BP 101/58
--- NOTE | 2023-05-15 15:58 | W.PN.ID1 ---
Date of Service
Date of Service: May 15, 2023
Today's Communication
continue zosyn pending culture
Assessment / Plan
Fevers
Chronic Foot wound
- MRI pending, foot xray suggestive of progression of osteomyelitis
- wound now probes to bone
- continue zosyn pending culture
- follow clinically
Chief Complaint
-: Other (osteomyelitis of the calcaneous)
Subjective / Review of Systems
no further fevers
bp stable
wound culture in progress
tolerating current therapies
Vital Signs / Physical Exam
Vital Signs
Vital Signs
Temp Pulse Resp BP Pulse Ox
98.1 F 80 18 101/58 93
05/15/23 15:30 05/15/23 15:30 05/15/23 15:30 05/15/23 15:30 05/15/23 15:30
Physical Exam
Constitutional: No Acute Distress
Cardiovascular: Regular Rate and S1/S2; Negative Murmur or Rub
Pulmonary: Clear and Symmetric; Negative Wheezes or Rales
Gastrointestinal: Soft, Non Tender, Non Distended and Normal Bowel Sounds
Skin: Warm and Dry; Negative Rash or Jaundice
Wound: Other (dressing clean, dry, intact)
Objective Data
Lab Data
Lab Results
05/14/23 07:01
05/14/23 07:01
Estimated Creat Clear 14 ml/min 05/14/23 07:01
Lactic Acid 1.2 mmol/L (0.7-2.0) 05/13/23 23:18
Total Bilirubin 1.3 mg/dl (0.2-1.3) 05/13/23 17:12
AST 36 U/L (17-59) 05/13/23 17:12
ALT 31 U/L (0-50) 05/13/23 17:12
Alkaline Phosphatase 154 U/L (38-126) H 05/13/23 17:12
Most recent labs reviewed.
Micro Results:
05/14/23 16:28 Wound Culture - Pending
Foot - Left Gram Stain - Preliminary
05/15/23 05:06 Stool Leukocytes - Final
Feces/Stool
05/13/23 17:15 Blood Culture - Preliminary
Blood/Venous Streptococcus agalactiae
Gram Stain - Final
05/13/23 17:12 Blood Culture - Preliminary
Blood/Venous Streptococcus agalactiae
Gram Stain - Final
05/14/23 06:50 MRSA Screen - Final
Nose No Methicillin Resistant Staphylococcus aureus isolated.
05/15/23 05:07 Salmonella/Shigella Culture - Pending
Feces/Stool Campylobacter Culture - Pending
Shiga Toxin Test - Pending
05/14/23 16:28 Anaerobic Culture - Pending
Foot - Left
05/13/23 17:12 Influenza Types A & B ([facility]) - Final
Nasal Swab Negative for Influenza A & B, NAAT
Negative results must be combined with clinical observations
and patient history.
Nucleic Acid Amplification test (NAAT)performed on the
[employer] platform.
[2023-05-15 17:17] LABS: Glucose - Point of Care 81 mg/dl (70-99)
[2023-05-15] MEDS: NOVOLOG FLEXPEN-HIGH RESISTANCE SC ×2 (17:26→17:27)
[2023-05-15 22:01] LABS: Glucose - Point of Care 164 mg/dl (70-99)
[2023-05-15] MEDS: LIPITOR 80 MG PO (22:09)
[2023-05-15] MEDS: LANTUS 0.800000000000000044 UNITS SC (22:09)
--- NOTE | 2023-05-15 22:23 | PTCARENOTE ---
Patient reports difficulty urinating; he states that it feels like he is not fully emptying his bladder; bladder scan shows 142 mls; will continue to monitor.
[2023-05-15 23:12] VITALS: BP 125/73
[2023-05-16] MEDS: ZOSYN 50 IV ×3 (03:59→20:29)
[2023-05-16 05:56] VITALS: BMI 33.5
[2023-05-16 06:00] VITALS: BMI 33.5
[2023-05-16] MEDS: ProAmatine 10 MG PO (06:22)
[2023-05-16] MEDS: SYNTHROID 25 MCG PO (06:22)
[2023-05-16 07:24] LABS: Glucose - Point of Care 157 mg/dl (70-99)
[2023-05-16 07:30] VITALS: BP 112/70
--- NOTE | 2023-05-16 07:55 | W.PN.UPDATE ---
Update Note
Progress Note Update
Mr. Harrison is resting comfortably in bed this morning. He endorses continued aching pain in the foot, but otherwise reports he is doing well.
Directed exam of left lower extremity reveals compressive dressing intact without bleeding or drainage. Patient able to wiggle toes. Sensation to light touch diminished. Capillary refill <2 seconds. VSS, afebrile.
Gram stain shows rare WBC and gram positive cocci. Cultures pending.
--We are awaiting MRI of the left foot for further treatment recommendations.
--Continue vanc/zosyn. Appreciate ID recommendations.
--NWB to LLE.
--Continue 3x/week dressing changes. Recommend collagen dressings.
--Continue current pain management regimen.
--Orthopedics/podiatry will continue to follow along.
[2023-05-16 08:05] LABS: Hemoglobin 9.6 g/dL (13.0-18.0)
[2023-05-16 08:19] LABS: Carbon Dioxide 22 mmol/L (22-30); Chloride 95 mmol/L (98-107); Potassium 4.2 mmol/L (3.5-5.1); Sodium 128 mmol/L (135-145)
[2023-05-16] MEDS: RETACRIT 8000 UNITS IV (08:22)
[2023-05-16] MEDS: MANNITOL 12.5 GRAMS IV (08:40)
[2023-05-16] MEDS: ASPIR LOW (ENTERIC COATED) 81 MG PO (08:49)
[2023-05-16] MEDS: HEPARIN 5000 UNITS SC ×2 (08:49→17:35)
[2023-05-16] MEDS: COREG PO ×2 (08:50→20:27)
[2023-05-16] MEDS: ProAmatine 5 MG PO ×3 (08:50→17:35)
[2023-05-16] MEDS: NOVOLOG FLEXPEN-HIGH RESISTANCE SC ×3 (08:57→17:37)
--- NOTE | 2023-05-16 09:33 | VNURNOTE ---
Patient is current with [facility] since 11/06 w/ SN, will monitor progress and plan at discharge.
--- NOTE | 2023-05-16 10:48 | W.PN.NEPH.HD ---
Assessment
-
Seen on HD. no complaints. Abx for foot infection. Await MRI
VSS, access ok
Progress Note - Hemodialysis
-
Date of Service: May 16, 2023
Duration: 30 minutes and 3 hours
Potassium Bath: 2
Calcium Bath: 2.5
Opti-Dialyzer: 160
Ultrafiltration: Other (kg)
Blood Flow: 400
Dialysate Flow: 600
Heparin: 0
EPO: 8000units
--- NOTE | 2023-05-16 11:05 | W.PN.HOSP.TC ---
Today's Communication/Plan
-
US lower extremities
MRI foot pending
CW ABX
Assessment / Plan
Assessment / Plan
Generalized Weakness/Fatigue with Fever sec to infection - improved
Streptococcus agalactiae bacteremia-suspect from left foot. Appt ID input. Continue with Zosyn
Chronic left heel wound- podiatry following. Patient has been following podiatry for long time. Last debridement a week ago.
-MRI foot ordered
-cw Wound Care
ESRD on HD
-Usual dialysis days are MoWeFr, however patient did not received HD today May 12
-HD tomorrow
Acute hypoxic respiratory insufficieny
Pt on O2;cxr �Diffusely increased interstitial markings which i suspect clinically interstitial edema
Resolved with HD
ASCVD s/p CABG and LLE Stent
-Continue aspirin
Chronic HFrEF
-Monitor Is&Os and Daily Weights
Hyperlipidemia
-Continue atorvastatin
Diabetes Mellitus, Type II
-Continue Lantus ;decrease dose of Novolog with meals as blood sugars are good to low
-Monitor sugars and continue coverage insulin
Diabetic Neuropathy
-Continue gabapentin
Hypothyroidism
-Continue Synthroid
DVT proph: SC Heparin
Code Status: Full Code
Check US left leg due to swelling
Anticipated Discharge: > 48 hours
Subjective/Interval History
-
Date of Service: May 16, 2023
Pain present from the left heel wound area. Managed with pain medication. He also has peripheral neuropathy bilateral lower extremity.
Resolved shortness of breath. Not requiring oxygen. Tolerating diet. Did not sleep much last night as he can get sleep in the hospitals.
Objective Data
-
Labs:
Laboratory Results
05/16/23
07:22
Hgb 9.6 L
Hct 28.0 L
Sodium 128 L
Potassium 4.2
Chloride 95 L
Carbon Dioxide 22
Vital Signs:
Vital Signs
Temp Pulse Resp BP Pulse Ox
98.1 F 70 18 112/70 98
05/16/23 07:30 05/16/23 08:50 05/16/23 07:30 05/16/23 08:50 05/16/23 10:01
I&O
05/15/23 05/16/23 05/17/23
06:59 06:59 06:59
Intake Total 720 / 720 1180 / 1180
Output Total 400 / 400 85 / 85
Balance 320 / 320 1095 / 1095
Review of Systems
-
All other systems: Reviewed and negative
Physical Exam
-
General: No Apparent Distress
HEENT: Moist Mucous Membranes
Respiratory: Clear to Auscultation
Cardiac: Regular Rhythm and S1/S2
GI: Soft
Musculoskeletal: Edema, Right Lower Extrem and Edema, Left Lower Extrem (more than right)
Neuro: AO x 3
Psych: Calm
Data Reviewed
-
Labs: Labs Reviewed by me
--- NOTE | 2023-05-16 11:36 | CM ---
Addendum entered by Sarah Lynch RN 05/16/23 16:00:
IMM signed and placed on chart.
Original Note:
Reviewed the chart notes and spoke with the patient at the bedside on HD. PT recommending SNF/rehab. Discussed with the patient the being on dialysis is a barrier for some facilities due to transportation to and from HD. Patient agreeable with
referrals being sent to area facilities that maybe able to accommodate a dialysis patient. CM continues to be available to patient/family and is monitoring medical plan for needs at discharge.
Plan: Discharge to SNF/rehab once medically stable and a bed is found. No precert required.
[2023-05-16 11:53] LABS: Glucose - Point of Care 86 mg/dl (70-99)
[2023-05-16] MEDS: NEURONTIN 300 MG PO (12:01)
[2023-05-16] MEDS: NOVOLOG FLEXPEN-HIGH RESISTANCE 1 UNITS SC (12:13)
--- NOTE | 2023-05-16 12:16 | WOUNDNOTE ---
R DORSAL FOOT AND 2ND TOE
--- NOTE | 2023-05-16 12:17 | WOUNDNOTE ---
R MEDIAL GREAT TOE
--- NOTE | 2023-05-16 12:20 | WOUNDNOTE ---
KLAUS RN note: Patient admitted with L plantar heel ulcer infection. Patient lives with his .
See H&P for complete history.
PMH: IDDM, neuropathy, CAD, HTN, [place], CABG, renal failure on HD(mwf) PAD, sleep apnea, CM, chronic L plantar heel wound x 4 years with chronic osteomyelitis, LLE angiogram with balloon angioplasty in stent stenosis x 2 (08/04/22, 08/19/22), multiple L
heel debridement with wound vac by Dr. Hall and venous leg ulcers.
Wound Location and type/assessment: Patient known to service, last seen 09/2022 for L heel neuropathic wound, + osteomyelitis. Today L plantar heel with macerated edges and pink deep base, moderate drainage, no odor. Patient states sutures from last
debridement by Dr. Hall opened, now using wound vac dressing. Home [employer] vac unit at bedside and charging. Patient states VN comes to his house 3x per week to do vac dressing changes with black foam. Does not have supplies at bedside other than vac
unit. R heel is intact, R lower leg with venous/diabetic ulcers, scant drainage. skin on legs and feet very dry. R medial toe with dry callus, R 2nd toe dry scab and dorsal foot with scar. Hgb A1c 9.3. Per Dr. Hall, alginate dressing on L heel
with margaret wrap, strict NWB. MRI results pending, may start wound vac again before discharge. Patient confirmed he has been using margaret wrap to L foot to ankle and Tubigrip knee high for R leg. Pulses audible with Doppler, b/l legs with 2+ edema, skin
very dry. L heel wound culture + for Streptococcus, on abx, reviewed I&D note. Patient able to turn self in bed, Sacrum/buttocks dull red stage 1 pressure injury with chronic dark discolored skin. Patient states at home he sits in W/C most of day,
has offloading cushion.
Appetite: Good, on 1800cal diet.
Pressure redistribution devices in place: Accumax bed. Patient turns and sits at side of bed on own.
Plan: R leg and foot local wound care and Tubigrip knee high applied. L heel dressing changed with alginate, gauze abd pad and kerlix/margaret to secure. A&D ointment applied to dry skin on both legs, will order mineral oil. Results of MRI pending, will
follow peripherally and assist as needed. Will confirm orders with hospitalist. Updated nurse Livia,
Care plan to be updated. Recommend patient follow with Dr. Hall upon discharge and continue VN.
[2023-05-16 13:54] VITALS: BMI 33.5
[2023-05-16 15:37] VITALS: BP 107/63
--- NOTE | 2023-05-16 15:40 | PN.CDI ---
CDI
- -
CDI:
Physician Documentation Request
Admit Date: 05/13/23 21:19
Dear Doctor Esequiel,
Clinical Indicators:
Patient admitted with generalized weakness/fatigue with fever; suspected left foot infection.
Lactic Acid on admission:
05/13/23
17:12
Lactic Acid 3.2 H
Temp on admission:
05/13/23
22:00
Temp 101.4 F H
HR/RR trend on admission:
05/13/23
17:05 05/13/23
17:15 05/13/23
17:45
Pulse 109 100 100
Resp Rate 24 22 20
05/13/23
18:15 05/13/23
18:30 05/13/23
19:00
Pulse 93 93 93
Resp Rate 28 28 23
05/13/23
19:45 05/13/23
20:30
Pulse 91 107
Resp Rate 23 24
Please clarify which of the following most accurately describes the status of the patient's infection:
Sepsis, POA
- Systemic manifestations of infection, with 2 or more SIRS criteria which include:
- Fever >100.4 degrees F or hypothermia < 96.8 degrees F
- Leukocytosis - WBC > 12,000 or leukopenia - WBC < 4,000 or > 10% bands
- Tachycardia > 90 beats per minute
- Tachypnea - RR > 20 breaths per minute or PaCO2 , 32mmHg
Source: Merck Manual 2013
Streptococcus agalactiae Bacteremia
- Abnormal lab finding only, does not indicate systemic illness
Other
Use of terms such as suspected, likely, concern for, or probable (associated with a specific diagnosis that is being evaluated, monitored, or treated as if it exists) are acceptable and can be coded in the inpatient setting, when documented at the
time of discharge.
Thank you,
MAU Laguerre RN
CDI Specialist
available via tiger text
Please use your independent medical judgment in providing your response.
[2023-05-16 17:18] LABS: Glucose - Point of Care 199 mg/dl (70-99)
[2023-05-16] MEDS: NOVOLOG FLEXPEN-HIGH RESISTANCE 2 UNITS SC (19:00)
--- NOTE | 2023-05-16 20:30 | W.PN.UPDATE ---
Update Note
Progress Note Update
Patient seen with family at bedside for worsening left foot infection, patient in no apparent distress.
-Continue Abx at this time
-Strict NWB LLE
-Dressings changed every other day with collagen dressing
-Discussed guarded prognosis for limb salvage and recommended definitive amputation
-reviewed likely similar outcomes with limb salvage efforts however unlikely to be successful, would require debridement, biopsy, Illizarov External fixator and prolonged antibiotics, patient wishes to discuss options with family at this time
-Recommended Amputee coalition
[2023-05-16 21:43] LABS: Glucose - Point of Care 207 mg/dl (70-99)
[2023-05-16] MEDS: LANTUS 0.800000000000000044 UNITS SC (21:44)
[2023-05-16] MEDS: MELATONIN 5 MG PO (21:44)
[2023-05-16] MEDS: LIPITOR 80 MG PO (21:45)
[2023-05-16 23:42] VITALS: BP 101/61
[2023-05-17] MEDS: HEPARIN 5000 UNITS SC ×4 (00:19→23:16)
[2023-05-17] MEDS: ZOSYN 50 IV ×3 (04:00→20:20)
[2023-05-17] MEDS: SYNTHROID 25 MCG PO (04:36)
[2023-05-17 05:53] VITALS: BMI 33.1
[2023-05-17 06:00] VITALS: BMI 33.1
[2023-05-17 07:00] VITALS: BP 126/68
[2023-05-17 07:07] LABS: Glucose - Point of Care 65 mg/dl (70-99)
[2023-05-17 07:30] LABS: Glucose - Point of Care 74 mg/dl (70-99)
[2023-05-17] MEDS: NOVOLOG FLEXPEN-HIGH RESISTANCE SC (08:37)
--- NOTE | 2023-05-17 08:40 | W.PN.UPDATE ---
Update Note
Progress Note Update
Patient seen this morning for worsening left foot infection, patient in no apparent distress.�
-Has come to terms with the fact that his wound will not likely heal without definitive amputation.
-After consulting with Dr. Hall last night and discussing with his family, he has concluded that definitive amputation is how he would like to proceed going forward.
-Will consult vascular surgery to discuss amputation. Consult placed and Dr. Hall to reach out directly.
-Continue Abx at this time
-Strict NWB LLE
-Dressings changed every other day with collagen dressing
-Recommend continued follow up in our office after discharge.
[2023-05-17] MEDS: ASPIR LOW (ENTERIC COATED) 81 MG PO (08:57)
[2023-05-17] MEDS: COREG 3.125 MG PO (08:58)
[2023-05-17] MEDS: ProAmatine 5 MG PO ×3 (08:58→17:45)
[2023-05-17] MEDS: HYDROPHOR 1 APPLIC TOPICAL (09:02)
[2023-05-17 09:08] LABS: Glucose - Point of Care 136 mg/dl (70-99)
--- NOTE | 2023-05-17 10:16 | CON.VAS ---
Addendum entered and electronically signed by Son Ritchie III, MD 05/17/23 14:41:
This patient was seen and examined with SUSAN Wilkerson. I agree with the history and physical exam as well as the assessment and plan. I have the following additions:
Surgical history as detailed
Currently deemed to have nonsalvageable left foot
Recommendation is for below the knee amputation
Patient is amenable to this
The technical aspects of below the knee amputation were discussed with him in detail. Benefits and rationale for this approach were discussed with him in detail. Operative risks were discussed with him in detail including but not limited to
bleeding, heart attack, stroke, infection, poor wound healing, need for additional procedures and possibility for [id number] conversion. Alternative of [id number] amputation was discussed with him in detail. He would prefer to proceed with
below the knee amputation. Will plan for this 05/18/2023.
Signed:
Son Ritchie III, MD
[facility]
[phone] (ddbj)
Original Note:
Consultation
Consultation Request
Performing Provider: Chau
Reason for Consultation: Left lower extremity nonhealing heel wound
Medical History
-
Chief Complaint: Left heel wound
History of Present Illness:
63-year-old male with significant past medical history for CAD, ESRD on HD MWF via left upper extremity AVF, DM, PAD, and nonhealing left heel ulcer, who presented to the ER on 05/12 for nonhealing left heel wound. Patient has been following
podiatry outpatient for the last year. Patient has not been hospitalized multiple times since July for heel debridements/I&D's. Most recently he was admitted in March and had a VAC placed to the heel. On arrival patient was worked up for
sepsis. +blood culture, MRI suggests osteomyelitis. Podiatry and Ortho recommending amputation at this point. Vascular consult for amputation.
Patient seen and assessed at bedside this a.m. with Dr. Ritchie.
Vascular Surgery History:
08/20/22- NESTOR schwarz, balloon angioplasty of in-stent restenosis, heel debridement
08/04/22- Left lower extremity arteriogram balloon angioplasty of in-stent restenosis left distal superficial femoral artery, distal superficial femoral artery, and above-knee popliteal artery. Right lower extremity arteriogram.
04/28/20- Left upper extremity fistulogram. Angioplasty of cephalic vein.� By Dr. Crow
03/10/20- �Left upper extremity AV fistula revision with patch angioplasty using a cephalic vein branch. By Dr. Crow
02/04/20- Left upper extremity fistulogram. Central venogram. Angioplasty of cephalic vein. By Dr. Crow
10/15/19-� Left brachiocephalic fistula creation. By Dr. Crow
10/20/18- Left lower extremity arteriogram third order catheterization. Angioplasty and stent, left popliteal artery. By Dr. Crow
03/27/17- Right lower extremity arteriogram with third order catheterization. Angioplasty of the popliteal, peroneal, and posterior tibial artery. By Dr. Crow
Past Medical History
Past Medical History: CAD, Hypothyroidism, IDDM, Renal Failure (MWF) and Other (PAD with bilateral lower extremity stenting, pulmonary hypertension)
Past Surgical History: Other (CABG circumflex stenting times 23 October 2021, right toe amputation, Left arm AV fistula with angioplasty, many left heel debridements)
Social History
Alcohol: None
Drug: None
Family History
Family History: Reviewed & Not Pertinent
Allergies / Home Medications
Allergy/AdvReac Type Severity Reaction Status Date / Time
scallops Allergy Vomiting Verified 04/13/23 13:14
Medication Instructions Recorded Confirmed Type
aspirin 81 mg tablet,delayed 81 mg PO DAILY Blood clot 03/10/20 05/13/23 History
release prevention/tx
atorvastatin 80 mg tablet 80 mg PO HS High cholesterol 03/10/20 05/13/23 History
carvedilol 3.125 mg tablet 3.125 mg PO BID Heart 08/18/22 05/13/23 History
Disease/Condition
levothyroxine 25 mcg tablet 25 mcg PO DAILY AT 0700 Thyroid 08/18/22 05/13/23 History
midodrine 5 mg tablet 5 mg PO TID@0800,1300,1800 30 days 10/18/22 05/13/23 Rx
#90 tabs
acetaminophen 500 mg tablet 1,000 mg PO Q6H PRN mild pain 12/28/22 05/13/23 History
insulin glargine 100 unit/mL (3 80 unit SC HS Diabetes 12/28/22 05/13/23 History
mL) subcutaneous pen (Lantus
Solostar U-100 Insulin)
insulin aspart U-100 100 unit/mL 20 unit SC AC Diabetes 04/11/23 05/13/23 History
(3 mL) subcutaneous pen (Novolog
FlexPen U-100 Insulin aspart)
gabapentin 300 mg capsule 300 mg PO NOON Pain 05/13/23 05/13/23 History
Review of Systems
-
History Source: Patient
All other systems: Negative unless noted
Constitutional: Reports Fatigue
EENT: Reports No Symptoms
Respiratory: Reports No Symptoms
Cardiac: Reports No Symptoms
Vascular: Denies Leg Pain / Claudication
Abdomen/GI: Reports No Symptoms
: Reports No Symptoms
Musculoskeletal: Reports Edema
Skin: Reports Other (Left heel wound)
Neurological: Reports No Symptoms
Endocrine: Reports No Symptoms
Physical Exam
Vital Signs
Temp Pulse Resp BP Pulse Ox
98.8 F 75 16 126/68 98
05/16/23 23:42 05/17/23 08:58 05/17/23 07:00 05/17/23 08:58 05/17/23 07:00
Lab Results
05/16/23 07:22
05/16/23 07:22
Physical Exam
General: No Apparent Distress
HEENT: Normocephalic and Atraumatic
Respiratory: Non Labored Respirations
Cardiac: Negative JVD
GI: Soft, Non Tender and Non Distended
Musculoskeletal: No Clubbing, No Cyanosis and Edema (+3 bilateral lower extremity)
Skin: Dry (From mid crow to foot-skin is brown, dry) and Other (Left heel-nonhealing wound, wrapped by podiatry)
Neuro: Awake, Alert and Oriented
Psych: Calm
Assessment / Plan
-
63-year-old male with longstanding nonhealing left heel wound, podiatry and Ortho recommending amputation
Plan:
-Spoke with patient at length at bedside, patient understanding and agreeable to below-knee amputation
-Left lower extremity Kee wrapped snugly to decrease edema before surgery, please keep intact
-Elevate leg is much as possible
-N.p.o. after midnight for OR tomorrow morning
--- NOTE | 2023-05-17 10:40 | W.PN.HOSP.TC ---
Addendum entered and electronically signed by Shreyas Iraheta MD 05/26/23 16:13:
Streptococcus agalactiae bacteremia-suspect from left foot soft tissue infection
Sepsis POA
Original Note:
Today's Communication/Plan
-
Continue with antibiotics.
Decrease Lantus dose
Vascular evaluation ongoing
Possible amputation tomorrow
Assessment / Plan
Assessment / Plan
Generalized Weakness/Fatigue with Fever sec to infection - improved
Streptococcus agalactiae bacteremia-suspect from left foot. Appt ID input. Continue with Zosyn
Chronic left heel wound- podiatry following. Patient has been following podiatry for long time. Last debridement a week ago. He states he has been dealing with his own for almost a year now.
-MRI foot shows OM Calcaneus and talus bone with small amount of devitalized soft tissue at the margin of the wound inferior to calcaneus
-Regulatory And Compliance Technician recommendation noted and patient leaning towards a amputation. Vascular surgery consulted.
Continue with antibiotics for now
ESRD on HD
-Usual dialysis days are MoWeFr, however patient did not received HD today May 12
-cw HD support
Acute hypoxic respiratory insufficieny
Pt on O2;cxr �Diffusely increased interstitial markings which i suspect clinically interstitial edema
Resolved with HD
ASCVD s/p CABG and LLE Stent
-Continue aspirin
Chronic HFrEF
-Monitor Is&Os and Daily Weights
Hyperlipidemia
-Continue atorvastatin
Diabetes Mellitus, Type II
- Poorly controlled . Hemoglobin A1c 9.3. Patient states that he lost his benefits for continuous glucometer so is not checking blood sugars at home. He states that he eats much less than what he eats at home but still sugars are high.
-He is not requiring all his nutritional insulin and even having low sugars in the morning. Decrease the dose of Lantus. Continue with the sliding scale. DC nutritional insulin.
-I suspect dietary discretions playing a role at home
Diabetic Neuropathy
-Continue gabapentin
Hypothyroidism
-Continue Synthroid
DVT proph: SC Heparin
Ultrasound of the left leg shows no evidence of DVT
Code Status: Full Code
Discussed with vascular-planning for amputation tomorrow at 7:30 AM
Total time spent on today's encounter was 52 minutes which included time spent in counseling the patient regarding diagnosis and treatment plan as listed above, goals of care, and symptom management. Case was discussed with nursing staff,
specialists, . All labs and imaging personally reviewed by me. Remainder the time spent in detailed review of previous records, lab data, imaging, and other medical provider documentation.
Anticipated Discharge: > 48 hours
Subjective/Interval History
-
Date of Service: May 17, 2023
No fever or chills.
Denies shortness of breath or chest pain.
No nausea vomiting.
Patient states he had discussions with the surgeons and as well as with the family and decided to go ahead with amputation.
Objective Data
-
Vital Signs:
Vital Signs
Temp Pulse Resp BP Pulse Ox
98.8 F 75 16 126/68 98
05/16/23 23:42 05/17/23 08:58 05/17/23 07:00 05/17/23 08:58 05/17/23 07:00
I&O
05/16/23 05/17/23 05/18/23
06:59 06:59 06:59
Intake Total 1180 / 1180 1010 / 1010
Output Total 85 / 85 50 / 50
Balance 1095 / 1095 960 / 960
Review of Systems
-
EENT: Denies Sore Throat
Respiratory: Denies Cough
Abdomen/GI: Denies Abdominal Pain
Neuro: Denies Dizzy
Physical Exam
-
General: No Apparent Distress
HEENT: Moist Mucous Membranes
Respiratory: Clear to Auscultation
Cardiac: Regular Rhythm and S1/S2
GI: Soft
Musculoskeletal: Other (left foot in dressing)
Neuro: AO x 3
Psych: Calm; Negative Confused or Agitated
Data Reviewed
-
Ultrasound: Report Reviewed by me (of left leg)
MRI: Report Reviewed by me (MRI left foot)
Labs: Labs Reviewed by me
[2023-05-17 11:42] LABS: Glucose - Point of Care 226 mg/dl (70-99)
--- NOTE | 2023-05-17 12:00 | W.PN.NEPH.PH ---
Today's Communication / Plan
-
HD tomorrow
Assessment/Plan
-
Impression;
Fevers/Sepsis/gram Positive bacteremia
End-stage renal disease Tuesday
Left heel wound infection
Diabetes
History of CABG and left lower extremities to
History of congestive heart
Diabetic neuropathy
Hypothyroid
Chronic Hypotension
Anemia
Ischemic cardiomyopathy EF 30%
Pulmonary hypertension
Left upper extremity AV
Plan:
-HD for tomorrow orders provided
-Midodrine has been utilized for hypotension
-Zosyn appropriately renally dosed for left heel wound with strong suspicion for osteomyelitis
-Left upper extremity AV fistula with good function
-Will provide MATTHIEU therapy as needed for anemia
-Appropriate dietary and fluid restrictions to be ordered for ESRD
-for left BKA tomorrow
-
-
Date of Service: May 17, 2023
CC / HPI / ROS
-
Chief Complaint:
End-stage renal disease
History of Present Illness:
End-stage renal disease on Tuesday schedule
tolerated HD yesterday
Hemodynamically labile on midodrine support
On Zosyn for strep agalactiae bacteremia
Review of Systems:
No chest pain or shortness of breath
Labs
-
Labs:
WBC 8.6 10^3/uL (4.8-10.8) 05/14/23 07:01
RBC 3.47 10^6/uL (4.70-6.10) L 05/14/23 07:01
Hgb 9.6 g/dL (13.0-18.0) L 05/16/23 07:22
Hct 28.0 % (39.0-52.0) L 05/16/23 07:22
Plt Count 266 10^3/uL (130-400) 03/23/24 07:01
Sodium 128 mmol/L (135-145) L 05/16/23 07:22
Potassium 4.2 mmol/L (3.5-5.1) 05/16/23 07:22
Chloride 95 mmol/L (98-107) L 05/16/23 07:22
Carbon Dioxide 22 mmol/L (22-30) 05/16/23 07:22
BUN 79 mg/dl (9-20) H 05/14/23 07:01
Creatinine 6.4 mg/dL (0.7-1.3) H* 05/14/23 07:01
eGFR 9.17 05/14/23 07:01
Glucose 185 mg/dl (70-99) H 05/14/23 07:01
Calcium 8.4 mg/dl (8.4-10.2) 05/14/23 07:01
Albumin 3.6 g/dl (3.5-5.0) 05/13/23 17:12
Physical Exam
-
Vital Signs:
Vital Signs
Temp Pulse Resp BP Pulse Ox
98.8 F 75 16 126/68 98
05/16/23 23:42 05/17/23 08:58 05/17/23 07:00 05/17/23 08:58 05/17/23 07:00
Cardiovascular:: Regular rate and rhythm
Respiratory:: Bilateral: Coarse
Lung Excursion:: Normal
Abdomen:: Nontender and Soft
Bowel Sounds:: Normal
Extremity Edema:: +3: Bilateral:
[2023-05-17] MEDS: NOVOLOG FLEXPEN-HIGH RESISTANCE 4 UNITS SC (12:50)
[2023-05-17] MEDS: NEURONTIN 300 MG PO (12:51)
--- NOTE | 2023-05-17 14:41 | CM ---
Reviewed the chart notes. Per notes, patient is scheduled for BKA to LLE tomorrow. CM continues to be available to patient/family and is monitoring medical plan for needs at discharge.
Plan: Discharge plans will depend on the patient's progress. Most likely SNF. Patient is a HD patient at [facility].
[2023-05-17 15:00] VITALS: BP 104/60; BP 114/61; PULSE 71; O2SAT 96
[2023-05-17 15:02] VITALS: BP 104/60; PULSE 67; O2SAT 96
--- NOTE | 2023-05-17 15:16 | W.PN.ID1 ---
Date of Service
Date of Service: May 17, 2023
Today's Communication
- agree with amputation
- continue zosyn through the procedure - then can likely stop
- follow clinically
Assessment / Plan
Chronic osteomyelitis of the calcaneus
Fevers - resolved
Chronic Foot wound
ESRD on HD via L avf
- agree with amputation
- continue zosyn through the procedure - then can likely stop
- follow clinically
Chief Complaint
-: Other (osteomyelitis of the calcaneous)
Subjective / Review of Systems
afebrile
bp stable
MRI reviewed
note consideration for amputation
Vital Signs / Physical Exam
Vital Signs
Vital Signs
Temp Pulse Resp BP Pulse Ox
97.6 F 70 16 114/61 99
05/17/23 15:00 05/17/23 15:00 05/17/23 15:00 05/17/23 15:00 05/17/23 15:00
Physical Exam
Constitutional: No Acute Distress
Cardiovascular: Regular Rate and S1/S2; Negative Murmur or Rub
Pulmonary: Clear and Symmetric; Negative Wheezes or Rales
Gastrointestinal: Soft, Non Tender, Non Distended and Normal Bowel Sounds
Skin: Warm and Dry; Negative Rash or Jaundice
Lines: Other (fistual functional - no erythema, warmth, tenderness or drainage)
Objective Data
Lab Data
Lab Results
05/16/23 07:22
05/16/23 07:22
Estimated Creat Clear 14 ml/min 05/14/23 07:01
Lactic Acid 1.2 mmol/L (0.7-2.0) 05/13/23 23:18
Total Bilirubin 1.3 mg/dl (0.2-1.3) 05/13/23 17:12
AST 36 U/L (17-59) 05/13/23 17:12
ALT 31 U/L (0-50) 05/13/23 17:12
Alkaline Phosphatase 154 U/L (38-126) H 05/13/23 17:12
Most recent labs reviewed.
Micro Results:
05/15/23 05:07 Salmonella/Shigella Culture - Final
Feces/Stool No Salmonella, Shigella, Aeromonas or Plesiomonas species
isolated.
Campylobacter Culture - Final
No Campylobacter species isolated.
Shiga Toxin Test - Final
No E. coli Shiga Toxin 1 or 2 detected.
05/14/23 16:28 Wound Culture - Preliminary
Foot - Left Enterobacter cloacae
Streptococcus agalactiae
Diptheroids
Gram Stain - Preliminary
05/13/23 17:12 Blood Culture - Final
Blood/Venous Streptococcus agalactiae
Gram Stain - Final
05/13/23 17:15 Blood Culture - Final
Blood/Venous Streptococcus agalactiae
Gram Stain - Final
05/14/23 16:28 Anaerobic Culture - Preliminary
Foot - Left Culture pending. Anaerobic cultures are examined after 3
days incubation. Additional information to follow.
05/15/23 05:06 Stool Leukocytes - Final
Feces/Stool
05/14/23 06:50 MRSA Screen - Final
Nose No Methicillin Resistant Staphylococcus aureus isolated.
05/13/23 17:12 Influenza Types A & B ([facility]) - Final
Nasal Swab Negative for Influenza A & B, NAAT
Negative results must be combined with clinical observations
and patient history.
Nucleic Acid Amplification test (NAAT)performed on the
[employer] platform.
--- NOTE | 2023-05-17 15:33 | PTCARENOTE ---
Left heel dressing changed. 2 KEE wraps were on LLE. Patient states, 'The doctor wants them on, up to my knee.' Kee dressings reapplied.
[2023-05-17 17:03] LABS: Glucose - Point of Care 149 mg/dl (70-99)
[2023-05-17] MEDS: NOVOLOG FLEXPEN-HIGH RESISTANCE 1 UNITS SC (17:45)
[2023-05-17] MEDS: LIPITOR 80 MG PO (20:20)
[2023-05-17] MEDS: COREG PO (20:23)
[2023-05-17 22:05] LABS: Glucose - Point of Care 146 mg/dl (70-99)
[2023-05-17] MEDS: LANTUS 0.719999999999999973 UNITS SC (22:34)
[2023-05-17 23:15] VITALS: BP 119/67
[2023-05-18] VITALS (16 sets, daily range): BP systolic 116–134; BP diastolic 65–74; BMI 33.5
--- NOTE | 2023-05-18 03:49 | DOWNTIME ---
There was a [employer] Client [employer]ulation Blower Downtime on 05/18/2023 from 0100 to 05/18/2023 at 0322. Downtime documentation of patient's care, including medication administrations, has been reconciled in the electronic record per guidelines. Refer to the
patient's paper chart under the miscellaneous tab to see printed paper medication records and downtime forms.
[2023-05-18] MEDS: ZOSYN 50 IV ×2 (03:55→11:40)
[2023-05-18 04:56] LABS: Hematocrit 29.2 % (39.0-52.0); Hemoglobin 9.6 g/dL (13.0-18.0); Mean Corp Hgb Conc. 32.9 g/dL (33.0-37.0); Mean Corpuscular Hgb 30.3 pg (27.0-31.0); Mean Corpuscular Volume 92.1 fL (80.0-94.0); Mean Platelet Volume 9.3 fL (7.4-10.4); Platelet Count 269 10^3/uL (130-400); Red Blood Cell Count 3.17 10^6/uL (4.70-6.10); Red Cell Dist. Width 14.2 % (11.5-14.5); White Blood Cell Count 8.3 10^3/uL (4.8-10.8)
[2023-05-18 05:43] LABS: Blood Urea Nitrogen 50 mg/dl (9-20); Calcium 7.9 mg/dl (8.4-10.2); Carbon Dioxide 25 mmol/L (22-30); Chloride 92 mmol/L (98-107); Estimated Creatinine Clearance 16 ml/min; Glucose 132 mg/dl (70-99); Potassium 3.7 mmol/L (3.5-5.1); Sodium 132 mmol/L (135-145); eGFR 10.32
[2023-05-18] MEDS: SYNTHROID 25 MCG PO (05:57)
[2023-05-18] MEDS: BACTROBAN 2% OINTMENT 1 APPLIC NASAL (05:57)
[2023-05-18 06:03] LABS: Glucose - Point of Care 117 mg/dl (70-99)
[2023-05-18] MEDS: PERIDEX 0.12% ORAL RINSE 15 ML PO (06:21)
[2023-05-18] MEDS: NOVOLOG FLEXPEN-HIGH RESISTANCE SC ×3 (07:26→16:06)
--- NOTE | 2023-05-18 07:30 | PTCARENOTE ---
Patient to OR for LLE BKA; chart and pre procedure ancef transported with patient.
--- NOTE | 2023-05-18 07:44 | W.SUR.PREOP ---
Pre-Operative Surgical Note
-
I have examined this patient prior to the performance of the scheduled procedure.
The patient's condition is unchanged from the time of the current History and
Physical and the patient is able to undergo the scheduled procedure.
--- NOTE | 2023-05-18 09:39 | W.IMMPOSTOP ---
Surgical Immed Post Op Note
-
Primary Surgeon: Son Ritchie III, MD
Assisting Surgeon: Dionisio Crowley MD
Pre-op Diagnosis: Non-healing L ulcer
Post-op Diagnosis: Non-healing L ulcer
Procedure Performed: L Below-knee amputation
Anesthesia Type: General
Specimen / Cultures: NA
Estimated Blood Loss: 250cc
Complications: NA
Operative Findings:
An anterior horizontal incision was made 5cm below the tibial tuberosity and extended obliquely towards the posterior surface of calf on both sides. The anterior compartment fascia and muscle were transected with electrocautery to the level of the
tibia. The anterior tibial artery was identified and tied off. The lateral compartment muscles were then transected distally and the fibula was exposed. An oscillating electric saw was used to transect the tibia and fibula. Edges of the tibia and
fibula were dulled using bone cutters. The peroneal and posterior tibial arteries were similarly identified and suture ligated. The posterior compartment muscles and fascia were transected distally, ensuring adequate length for proper flap
formation. Hemostasis was confirmed. The posterior flap was reflected anteriorly to the initial incision site. Fascia were re-approximated using interrupted 2-0 vicryls. Subcutaneous tissue were sewn with interrupted 3-0 vicryls. Skin was closed
with carlos. Xeroform gauze, ABD pads, xeroform gauze, and an THEODORE wrap bandage were used to apply pressure to the closed stump.
[2023-05-18 09:57] LABS: Glucose - Point of Care 110 mg/dl (70-99)
--- NOTE | 2023-05-18 09:59 | PN.CDI ---
CDI
- -
CDI:
Physician Documentation Request
Admit Date: 05/13/23 21:19
Dear Doctor Carlos,
Please review the following and provide your response in the progress notes.
Clinical Indicators:
- 05/15 Wound note indicates Stage 1 sacrum/buttocks pressure injury, POA
- 'Patient states at home he sits in W/C most of day, has offloading cushion'
Physician documentation of the type and location of wounds is required for compliant documentation. Based on the above clinical findings and your assessment, please provide the following in your progress note:
1. Location of the ulcer/wound, including laterality.
2. Type (etiology) of ulcer/wound:
- Diabetic ulcer
- Arterial (ischemic) ulcer
- Traumatic wound
- Venous stasis ulcer
- Pressure (decubitus) ulcer
- Non-healing surgical wound
- Other
- Unable to determine
3. For a non-pressure ulcer, please indicate the depth/severity:
- Limited to the breakdown of skin
- With fat layer exposed
- With necrosis of muscle
- With necrosis of bone
- Other
- Unable to determine
4. If a pressure ulcer, please also include the stage* of the ulcer:
- Stage 1 - Skin intact, non-blanchable redness
- Stage 2 - Partial thickness loss of dermis, includes intact or open blister
- Stage 3 - Full thickness tissue not including bone, tendon or muscle
- Stage 4 - Full thickness tissue loss, including exposed bone, tendon or muscle
- Unstageable - Full thickness loss in which the base of the ulcer is covered by slough (yellow, goetz, ryan, green or brown) and/or eschar (goetz, brown or black) in the wound bed.
- Unable to determine
Use of terms such as suspected, likely, concern for, or probable (associated with a specific diagnosis that is being evaluated, monitored, or treated as if it exists) are acceptable and can be coded in the inpatient setting, when documented at the
time of discharge.
Thank you,
Viraj Cutler RN
CDI Specialist
Please use your independent medical judgment in providing your response.
*Source: National Pressure Ulcer Advisory Panel (NPUAP)
[2023-05-18] MEDS: 0.45%NACL 1000 IV (10:18)
[2023-05-18] MEDS: DILAUDID PCA 30 IV (10:39)
[2023-05-18] MEDS: HEPARIN SC (11:21)
[2023-05-18] MEDS: COREG PO (11:27)
[2023-05-18] MEDS: ProAmatine 5 MG PO ×2 (11:39→17:00)
[2023-05-18] MEDS: ProAmatine 10 MG PO (11:39)
[2023-05-18] MEDS: ASPIR LOW (ENTERIC COATED) 81 MG PO (11:39)
[2023-05-18] MEDS: HYDROPHOR 1 APPLIC TOPICAL (11:40)
--- NOTE | 2023-05-18 11:45 | PTCARENOTE ---
Received patient from PACU s/p L BKA. Dressing to LLE applied in OR, assessed by this RN and PACU nurse, C/D/I. Vital signs and neurovascular checks stable, patient transported from PACU to room with Dilaudid INSIDE SALES PERSON pump and 0.45% NaCl @ 40 ml/hr
connected to R wrist IV, settings of pump reviewed by this RN and PARALLEL COMPUTING SOFTWARE ENGINEER at bedside. Patient 94% on 2L, continuous POX applied at bedside per order. Diet resumed per Dr. Ritchie, blood sugar 133. Dialysis nurse in room for scheduled HD session,
patient drowsy but arousable to verbal stimuli, states no concerns at this time.
[2023-05-18 11:51] LABS: Glucose - Point of Care 133 mg/dl (70-99)
[2023-05-18] MEDS: ProAmatine PO (12:10)
--- NOTE | 2023-05-18 12:37 | W.PN.NEPH.HD ---
Assessment
-
Patient seen on HD
s/p left BKA this am
u/f set for 2kg, post weight should be new EDW
Progress Note - Hemodialysis
-
Date of Service: May 18, 2023
Duration: 30 minutes and 3 hours
Potassium Bath: 3
Calcium Bath: 2.5
Opti-Dialyzer: 160
Blood Flow: 400
Dialysate Flow: 600
Heparin: none
EPO: 8K
[2023-05-18 12:54] LABS: Hematocrit 30.7 % (39.0-52.0); Mean Corp Hgb Conc. 32.6 g/dL (33.0-37.0); Mean Corpuscular Hgb 30.5 pg (27.0-31.0); Mean Corpuscular Volume 93.6 fL (80.0-94.0); Mean Platelet Volume 9.4 fL (7.4-10.4); Platelet Count 291 10^3/uL (130-400); Red Blood Cell Count 3.28 10^6/uL (4.70-6.10); Red Cell Dist. Width 14.6 % (11.5-14.5); White Blood Cell Count 11.4 10^3/uL (4.8-10.8)
[2023-05-18] MEDS: RETACRIT 8000 UNITS IV (13:29)
[2023-05-18 16:00] LABS: Glucose - Point of Care 114 mg/dl (70-99)
--- NOTE | 2023-05-18 16:02 | W.PN.HOSP.TC ---
Addendum entered and electronically signed by Aury Gonzalez MD 05/18/23 16:14:
Other impression is a chronic left heel diabetic wound and ulcer. Stage II-III, present on admission.
Original Note:
Today's Communication/Plan
-
All discussed with the patient
Discussed with nurse
Assessment / Plan
Assessment / Plan
Physical exam:
General: Sleepy, arousable but oriented x3, not in distress and holds appropriate conversation.
HEENT: No active discharge, ecchymosis or bruising, moist lips, tongue and mucous membrane.
Eyes: No discharge or red conjunctiva, no nystagmus, pupils are reactive and equal
Neck:Supple, no JVD no bruit no goiter.
Respiratory: Normal AP contour and diameter, normal chest wall movement, normal respiratory effort, no respiratory distress,
Lungs: Good air entry bilaterally, no wheezing or rhonchi, no rales or crackles
Heart: S1, S2 regular, normal rate, no added sound.
Gastrointestinal: Positive bowel sounds, soft, nontender, no guarding or rigidity or organomegaly
Musculoskeletal: , no chest wall abnormality or tenderness. All joints and extremities have good range of motion, no muscle tenderness or any joint swelling or tenderness.
Extremities: Dressing on the left below-knee amputation stump, no active discharge, some black eschar at the tip of the right big toe, no evidence of infection, mild lower EXTR pitting edema, good peripheral pulses, good range of motion
Skin: Warm and dry, no ulceration, normal color.
Streptococcus agalactiae bacteremia-suspect from left foot. Appt ID input. Continue with Neida
Chronic left heel wound- podiatry following. Patient has been following podiatry for long time. Last debridement a week ago. He states he has been dealing with for almost a year now.
-MRI foot shows OM Calcaneus and talus bone with small amount of devitalized soft tissue at the margin of the wound inferior to calcaneus
-Status post below-knee amputation today,
-Vascular surgery and podiatry appreciated
-Continue to biotic for now
-BOX TOE BUFFER pump with Dilaudid
-Discussed with the
ESRD on HD
-Usual dialysis days are [facility]We[facility], however patient did not received HD today May 12
-cw HD support
Acute hypoxic respiratory insufficiency
Pt on O2;cxr �Diffusely increased interstitial markings which i suspect clinically interstitial edema
Resolved with HD
Off oxygen
ASCVD s/p CABG and LLE Stent
-Continue aspirin
Chronic HFrEF
-Monitor Is&Os and Daily Weights
Hyperlipidemia
-Continue atorvastatin
Diabetes Mellitus, Type II
- Poorly controlled . Hemoglobin A1c 9.3. Patient states that he lost his benefits for continuous glucometer so is not checking blood sugars at home. He states that he eats much less than what he eats at home but still sugars are high.
-He is not requiring all his nutritional insulin and even having low sugars in the morning. Decrease the dose of Lantus. Continue with the sliding scale. DC nutritional insulin.
-I suspect dietary discretions playing a role at home
Diabetic Neuropathy
-Continue gabapentin
Hypothyroidism
-Continue Synthroid
DVT proph: SC Heparin
Ultrasound of the left leg shows no evidence of DVT
Code Status: Full Code
Discussed with vascular-planning for amputation tomorrow at 7:30 AM
Anticipated Discharge: > 48 hours
Subjective/Interval History
-
Date of Service: May 18, 2023
Seen and examined, postoperatively, sleepy and arousable, and having dialysis, complain of the pain in the left leg considerably below knee amputation, afebrile denies any chest pain or shortness of breath.
Objective Data
-
Labs:
Laboratory Results
05/18/23 05/18/23
04:27 12:41
WBC 8.3 11.4 H
Hgb 9.6 L 10.0 L
Hct 29.2 L 30.7 L
Plt Count 269 291
Sodium 132 L
Potassium 3.7
Chloride 92 L
Carbon Dioxide 25
BUN 50 H
Creatinine 5.8 H*
Glucose 132 H
Calcium 7.9 L
Vital Signs:
Vital Signs
Temp Pulse Resp BP Pulse Ox
98.2 F 86 18 123/71 95
05/18/23 14:45 05/18/23 14:45 05/18/23 14:45 05/18/23 14:45 05/18/23 14:45
I&O
05/17/23 05/18/23 05/19/23
07:59 07:59 07:59
Intake Total 1010 / 1010 960 / 960 50 / 50
Output Total 50 / 50 150 / 150 20 / 20
Balance 960 / 960 810 / 810 30 / 30
Review of Systems
-
All other systems: Reviewed and negative
--- NOTE | 2023-05-18 16:23 | OR.RPT ---
Operative Report
Operative Report
Date of Operation: 05/18/2023
Pre Op Diagnosis: Chronic nonhealing left heel wound with chronic osteomyelitis
Post Op Diagnosis: Chronic nonhealing left heel wound with chronic osteomyelitis
Procedure: Left lower extremity amputation, below the knee
Surgeon: Son Ritchie III, MD
Signwriter: Dionisio Crowley MD PGY-1
Anesthesia: General
Complications: None
Estimated Blood Loss: 250 cc
History and Indications for Procedure: 63-year-old male with chronic nonhealing left heel wound and associated chronic osteomyelitis with no options for limb preservation.
Procedure in Detail: Josue Harrison was correctly identified and placed supine on the operating table. After adequate induction of anesthesia the left leg was prepped and draped in the usual sterile fashion. A timeout procedure was performed with the
nursing and anesthesia staff confirming the patient�s identity as well as the nature and laterality of the procedure. A transverse incision was made approximately 1 hands-breadth below the tibial tuberosity and carried medially and laterally to the
intermediate points on the calf. The incision was then turned along the long axis of the calf and carried down towards the ankle to create the posterior flap. Electrocautery was used on the subcutaneous tissue and muscle of the anterior and lateral
tissue. The anterior tibial artery and vein were identified and then ligated and divided between ties. The tibia and fibula were each circumferentially exposed. A periosteal elevator was used on each to elevate the periosteum more proximally. The
tibia was then divided with a saw. The anterior surface was beveled and smoothed with the saw and a rasp. The fibula was then divided more proximally than the tibia and all edges were smoothed with the assistance of a rasp. The amputation was then
completed using an amputation knife along the posterior flap. The leg was then passed off to the back table to be sent to pathology. Hemostasis was achieved along the posterior flap using a combination of electrocautery and interrupted suture
ligatures. Once hemostasis was achieved the wound was irrigated with warm saline solution. The wound was then closed in multiple layers. Sterile dressings were applied.
The patient tolerated the procedure well and was taken to the PACU in stable condition.
Attestation: I was present and responsible for the entire procedure
Signed:
Son Ritchie III, MD
[facility] Vascular Surgery
[phone] (fnxj)
--- NOTE | 2023-05-18 16:35 | W.PN.ID1 ---
Date of Service
Date of Service: May 18, 2023
Today's Communication
stop antibiotics
Assessment / Plan
Chronic osteomyelitis of the calcaneus
Fevers - resolved
Chronic Foot wound
ESRD on HD via L avf
- agree with amputation
- stopped zosyn
- follow up with surgery
ID service will no longer actively follow this patient please recall for further questions
Chief Complaint
-: Other (osteomyelitis of the calcaneous)
Subjective / Review of Systems
afebrile
bp stable
mild leukocytosis this am, cr stable
s/p amputation
Vital Signs / Physical Exam
Vital Signs
Vital Signs
Temp Pulse Resp BP Pulse Ox
98.4 F 93 17 125/73 96
05/18/23 15:45 05/18/23 15:45 05/18/23 15:45 05/18/23 15:45 05/18/23 15:45
Physical Exam
Constitutional: No Acute Distress
Cardiovascular: Regular Rate and S1/S2; Negative Murmur or Rub
Pulmonary: Clear and Symmetric; Negative Wheezes or Rales
Gastrointestinal: Soft, Non Tender, Non Distended and Normal Bowel Sounds
Skin: Warm and Dry; Negative Rash or Jaundice
Objective Data
Lab Data
Lab Results
05/18/23 12:41
05/18/23 04:27
Estimated Creat Clear 16 ml/min 05/18/23 04:27
Lactic Acid 1.2 mmol/L (0.7-2.0) 05/13/23 23:18
Total Bilirubin 1.3 mg/dl (0.2-1.3) 05/13/23 17:12
AST 36 U/L (17-59) 05/13/23 17:12
ALT 31 U/L (0-50) 05/13/23 17:12
Alkaline Phosphatase 154 U/L (38-126) H 05/13/23 17:12
Most recent labs reviewed.
Micro Results:
05/14/23 16:28 Anaerobic Culture - Preliminary
Foot - Left Culture pending. Anaerobic cultures are examined after 3
days incubation. Additional information to follow.
05/15/23 05:07 Salmonella/Shigella Culture - Final
Feces/Stool No Salmonella, Shigella, Aeromonas or Plesiomonas species
isolated.
Campylobacter Culture - Final
No Campylobacter species isolated.
Shiga Toxin Test - Final
No E. coli Shiga Toxin 1 or 2 detected.
05/14/23 16:28 Wound Culture - Preliminary
Foot - Left Enterobacter cloacae
Streptococcus agalactiae
Diptheroids
Gram Stain - Preliminary
05/13/23 17:12 Blood Culture - Final
Blood/Venous Streptococcus agalactiae
Gram Stain - Final
05/13/23 17:15 Blood Culture - Final
Blood/Venous Streptococcus agalactiae
Gram Stain - Final
05/15/23 05:06 Stool Leukocytes - Final
Feces/Stool
05/14/23 06:50 MRSA Screen - Final
Nose No Methicillin Resistant Staphylococcus aureus isolated.
05/13/23 17:12 Influenza Types A & B ([facility]) - Final
Nasal Swab Negative for Influenza A & B, NAAT
Negative results must be combined with clinical observations
and patient history.
Nucleic Acid Amplification test (NAAT)performed on the
[employer] platform.
[2023-05-18] MEDS: NEURONTIN 300 MG PO (17:00)
[2023-05-18] MEDS: HEPARIN 5000 UNITS SC ×2 (17:00→23:28)
[2023-05-18] MEDS: COREG 3.125 MG PO (20:28)
[2023-05-18 21:09] LABS: Glucose - Point of Care 121 mg/dl (70-99)
[2023-05-18] MEDS: LANTUS 0.719999999999999973 UNITS SC (21:44)
[2023-05-18] MEDS: LIPITOR 80 MG PO (21:44)
[2023-05-19] MEDS: TYLENOL 1000 MG PO (01:18)
[2023-05-19 02:59] VITALS: BP 108/60
[2023-05-19] MEDS: SYNTHROID 25 MCG PO (05:29)
[2023-05-19 05:36] VITALS: BMI 31.8
[2023-05-19 06:08] LABS: INR 1.26; PT 15.9 Sec (11.4-14.6)
[2023-05-19 06:09] LABS: APTT 37.1 Sec (23.4-35.0)
[2023-05-19 06:15] LABS: Hematocrit 30.2 % (39.0-52.0); Hemoglobin 9.9 g/dL (13.0-18.0); Mean Corp Hgb Conc. 32.8 g/dL (33.0-37.0); Mean Corpuscular Hgb 30.4 pg (27.0-31.0); Mean Corpuscular Volume 92.6 fL (80.0-94.0); Mean Platelet Volume 9.4 fL (7.4-10.4); Platelet Count 287 10^3/uL (130-400); Red Blood Cell Count 3.26 10^6/uL (4.70-6.10); Red Cell Dist. Width 14.7 % (11.5-14.5); White Blood Cell Count 11.3 10^3/uL (4.8-10.8)
[2023-05-19 06:50] LABS: Blood Urea Nitrogen 34 mg/dl (9-20); Calcium 8.1 mg/dl (8.4-10.2); Carbon Dioxide 26 mmol/L (22-30); Chloride 95 mmol/L (98-107); Estimated Creatinine Clearance 18 ml/min; Glucose 89 mg/dl (70-99); Potassium 4.5 mmol/L (3.5-5.1); Sodium 132 mmol/L (135-145); eGFR 12.95
[2023-05-19 07:23] LABS: Glucose - Point of Care 93 mg/dl (70-99)
[2023-05-19 07:30] VITALS: BP 104/65
[2023-05-19] MEDS: NOVOLOG FLEXPEN-HIGH RESISTANCE SC ×2 (07:39→11:56)
[2023-05-19] MEDS: ProAmatine 5 MG PO ×3 (08:43→18:02)
[2023-05-19] MEDS: ASPIR LOW (ENTERIC COATED) 81 MG PO (08:43)
[2023-05-19] MEDS: COREG PO (08:43)
[2023-05-19] MEDS: HEPARIN 5000 UNITS SC ×3 (08:44→23:16)
[2023-05-19] MEDS: HYDROPHOR 1 APPLIC TOPICAL (08:44)
--- NOTE | 2023-05-19 09:10 | PTOTSP ---
Reviewed chart. Pt went to OR yesterday for left BKA and is on bedrest post-op. Will need new orders for PT AND OT when stable to begin activity.
--- NOTE | 2023-05-19 09:56 | W.PN.VS ---
Addendum entered and electronically signed by Son Ritchie III, MD 05/19/23 12:39:
This patient was seen and examined with SUSAN Myles. I agree with the history and physical exam as well as the assessment and plan
Signed:
Son Ritchie III, MD
[facility] Vascular Surgery
[phone] (sxwf)
Original Note:
Today's Communication / Plan
-
Patient seen and examined at bedside with Dr. Son Ritchie III, below plan reviewed with attending
Assessment/Plan
-
Assessment: 63-year-old male POD #1 Left lower extremity amputation, below the knee
Plan:
Will change dressing tomorrow
Overhead trapeze
Can continue TRANSITION SPECIALIST as patient reports adequate postoperative pain management currently
Continue to encourage incentive spirometry
Subjective Data
-
Date of Service: May 19, 2023
Patient seen and examined at bedside, reports adequate postoperative pain management. Offers no complaints. Denies nausea, vomiting, fever, and chills.
Objective Data
-
Vital Signs
Temp Pulse Resp BP Pulse Ox
98 F 75 18 104/65 96
05/19/23 07:30 05/19/23 08:43 05/19/23 07:30 05/19/23 08:43 05/19/23 07:30
Intake and Output
05/18/23 05/19/23 05/20/23
06:59 06:59 06:59
Intake Total 960 / 960 770 / 770
Output Total 150 / 150 170 / 170
Balance 810 / 810 600 / 600
Intake:
Oral fluids 960 / 960 720 / 720
IV fluids (Total) 50 / 50
normosol 50 / 50
Output:
Urine, Ritchie 170 / 170
Urine, Voided 150 / 150
Other:
Number of approximated LARGE 2
amounts of urine
Lab Results
05/19/23 05:17
05/19/23 05:17
Calcium 8.1 mg/dl (8.4-10.2) L 05/19/23 05:17
Magnesium 2.2 mg/dl (1.6-2.3) 05/14/23 07:01
Total Bilirubin 1.3 mg/dl (0.2-1.3) 05/13/23 17:12
AST 36 U/L (17-59) 05/13/23 17:12
ALT 31 U/L (0-50) 05/13/23 17:12
Alkaline Phosphatase 154 U/L (38-126) H 05/13/23 17:12
Total Protein 7.3 g/dl (6.3-8.2) 05/13/23 17:12
Albumin 3.6 g/dl (3.5-5.0) 05/13/23 17:12
Physical Exam
-
AAOx3, NAD
No tachycardia
No dyspnea on room air
ABD rotund, nontender, nondistended
Left lower extremity amputation dressing CDI, no evidence of swelling
--- NOTE | 2023-05-19 11:26 | CM ---
Reviewed the chart notes. The patient is POD #1 Left lower extremity amputation, below the knee. ID services signed off - no need for further abx. The patient will need evaluation by PT for discharge planning post op. Prior to surgery PT
recommended SNF/rehab. CM continues to be available to patient/family and is monitoring medical plan for needs at discharge.
Plan: Discharge most probably to SNF/rehab. Patient receives HD M-W- @ [facility]. Patient had been to [facility] and refuses to go back.
[2023-05-19 11:30] VITALS: BP 113/59
[2023-05-19 11:32] LABS: Glucose - Point of Care 130 mg/dl (70-99)
--- NOTE | 2023-05-19 11:36 | W.PN.NEPH.PH ---
Today's Communication / Plan
-
Dialysis tomorrow
Assessment/Plan
-
Impression;
Fevers/Sepsis/gram Positive bacteremia
Status post left lower extremity BKA 05/18/2023
End-stage renal disease Tuesday
Left heel wound infection
Diabetes
History of CABG and left lower extremities to
History of congestive heart
Diabetic neuropathy
Hypothyroid
Chronic Hypotension
Anemia
Ischemic cardiomyopathy EF 30%
Pulmonary hypertension
Left upper extremity AV
Plan:
-Status post left lower extremity BKA
-HD for tomorrow orders provided
-Midodrine has been utilized for hypotension
-Left upper extremity AV fistula with good function
-Will provide MATTHIEU therapy as needed for anemia
-Appropriate dietary and fluid restrictions to be ordered for ESRD
-
-
Date of Service: May 19, 2023
CC / HPI / ROS
-
Chief Complaint:
End-stage renal disease
History of Present Illness:
End-stage renal disease on Tuesday schedule
tolerated HD yesterday
Hemodynamically labile on midodrine support
Zosyn for strep agalactiae bacteremia
Status post left BKA on date 05/18/2023
Review of Systems:
No chest pain or shortness of breath
Postoperative surgical pain
Labs
-
Labs:
WBC 11.3 10^3/uL (4.8-10.8) H 05/19/23 05:17
RBC 3.26 10^6/uL (4.70-6.10) L 05/19/23 05:17
Hgb 9.9 g/dL (13.0-18.0) L 05/19/23 05:17
Hct 30.2 % (39.0-52.0) L 05/19/23 05:17
Plt Count 287 10^3/uL (130-400) 05/19/23 05:17
Sodium 132 mmol/L (135-145) L 05/19/23 05:17
Potassium 4.5 mmol/L (3.5-5.1) 05/19/23 05:17
Chloride 95 mmol/L (98-107) L 05/19/23 05:17
Carbon Dioxide 26 mmol/L (22-30) 05/19/23 05:17
BUN 34 mg/dl (9-20) H 05/19/23 05:17
Creatinine 4.8 mg/dL (0.7-1.3) H* 05/19/23 05:17
eGFR 12.95 05/19/23 05:17
Glucose 89 mg/dl (70-99) 05/19/23 05:17
Calcium 8.1 mg/dl (8.4-10.2) L 05/19/23 05:17
Albumin 3.6 g/dl (3.5-5.0) 05/13/23 17:12
Physical Exam
-
Vital Signs:
Vital Signs
Temp Pulse Resp BP Pulse Ox
98 F 75 12 104/65 96
05/19/23 07:30 05/19/23 08:43 05/19/23 08:00 05/19/23 08:43 05/19/23 10:33
Cardiovascular:: Regular rate and rhythm
Respiratory:: Bilateral: CTA
Lung Excursion:: Normal
Abdomen:: Nontender and Soft
Bowel Sounds:: Normal
Extremity Edema:: +1: Right:
Ritchie Catheter: No
[2023-05-19] MEDS: 0.45%NACL 1000 IV (12:14)
[2023-05-19] MEDS: NEURONTIN 300 MG PO (12:19)
--- NOTE | 2023-05-19 13:44 | W.PN.HOSP.TC ---
Addendum entered and electronically signed by Aury Gonzalez MD 05/19/23 14:48:
Addendum: Patient has a stage II lower back and sacral pressure decub ulcer, present on admission,
Repositioning
Dressing change
Original Note:
Today's Communication/Plan
-
All discussed with the patient and the nurse
Assessment / Plan
Assessment / Plan
Physical exam:
General: Awake and alert, answer question properly, oriented x3, not in distress and holds appropriate conversation.
HEENT: No active discharge, ecchymosis or bruising, moist lips, tongue and mucous membrane.
Eyes: No discharge or red conjunctiva, no nystagmus, pupils are reactive and equal
Neck:Supple, no JVD no bruit no goiter.
Respiratory: Normal AP contour and diameter, normal chest wall movement, normal respiratory effort, no respiratory distress,
Lungs: Good air entry bilaterally, no wheezing or rhonchi, no rales or crackles
Heart: S1, S2 regular, normal rate, no added sound.
Gastrointestinal: Positive bowel sounds, soft, nontender, no guarding or rigidity or organomegaly
Musculoskeletal: , no chest wall abnormality or tenderness. All joints and extremities have good range of motion, no muscle tenderness or any joint swelling or tenderness.
Extremities: Dressing on the left below-knee amputation stump, no active discharge, some black eschar at the tip of the right big toe, no evidence of infection, mild lower EXTR pitting edema, good peripheral pulses, good range of motion
Skin: Warm and dry, no ulceration, normal color.
Streptococcus agalactiae bacteremia-suspect from left foot. Appt ID input. Continue with Neida
Chronic left heel wound- podiatry following. Patient has been following podiatry for long time. Last debridement a week ago. He states he has been dealing with for almost a year now.
-Postoperative day 1 of left lower amputation
-Per vascular surgery recommendation to keep in the hospital for now and they will reassess and change the dressing tomorrow
-MRI foot shows OM Calcaneus and talus bone with small amount of devitalized soft tissue at the margin of the wound inferior to calcaneus
-Status post below-knee amputation today,
-Vascular surgery and podiatry appreciated
-Continue to biotic for now
-CONTACT LENS LATHE OPERATOR pump with Dilaudid
-Discussed with the patient and the nurse
-Add laxative and stool softener as he did not move his bowel in the last couple
ESRD on HD
-Usual dialysis days are MoWeFr, however patient did not received HD today May 12
-cw HD support
Acute hypoxic respiratory insufficiency
Pt on O2;cxr �Diffusely increased interstitial markings which i suspect clinically interstitial edema
Resolved with HD
Off oxygen
ASCVD s/p CABG and LLE Stent
-Continue aspirin
Chronic HFrEF
-Monitor Is&Os and Daily Weights
Hyperlipidemia
-Continue atorvastatin
Diabetes Mellitus, Type II
- Poorly controlled . Hemoglobin A1c 9.3. Patient states that he lost his benefits for continuous glucometer so is not checking blood sugars at home. He states that he eats much less than what he eats at home but still sugars are high.
-He is not requiring all his nutritional insulin and even having low sugars in the morning. Decrease the dose of Lantus. Continue with the sliding scale. DC nutritional insulin.
-I suspect dietary discretions playing a role at home
Diabetic Neuropathy
-Continue gabapentin
Hypothyroidism
-Continue Synthroid
DVT proph: SC Heparin
Ultrasound of the left leg shows no evidence of DVT
Code Status: Full Code
Need another day or 2. For further evaluation by vascular surgery.
Anticipated Discharge: 24 - 48 hours
Subjective/Interval History
-
Date of Service: May 19, 2023
Seen and examined, more awake and alert, still on CONTACT LENS LATHE OPERATOR pump still having excruciating pain in the left below-knee stump area but better than before specially with the CONTACT LENS LATHE OPERATOR pump, no nausea or vomiting or fever or chill. No chest pain, new urinary
symptoms, had dialysis yesterday.
Objective Data
-
Labs:
Laboratory Results
05/19/23
05:17
WBC 11.3 H
Hgb 9.9 L
Hct 30.2 L
Plt Count 287
PT 15.9 H
INR 1.26
APTT 37.1 H
Sodium 132 L
Potassium 4.5
Chloride 95 L
Carbon Dioxide 26
BUN 34 H
Creatinine 4.8 H*
Glucose 89
Calcium 8.1 L
Vital Signs:
Vital Signs
Temp Pulse Resp BP Pulse Ox
98.4 F 77 12 113/59 97
05/19/23 11:30 05/19/23 11:30 05/19/23 11:30 05/19/23 11:30 05/19/23 11:30
I&O
05/18/23 05/19/23 05/20/23
07:59 07:59 07:59
Intake Total 960 / 960 770 / 770
Output Total 150 / 150 170 / 170
Balance 810 / 810 600 / 600
Review of Systems
-
All other systems: Reviewed and negative
--- NOTE | 2023-05-19 14:49 | PTCARENOTE ---
Addendum entered by Danielle Chaidez RN 05/19/23 19:38:
Patient repeat bladder scanned by tech at 1800 for 136 ml. Patient bladder scanned by this RN for 88 ml; large fluid collection noted on R side of abdomen, scanned for 450 ml. MD made aware, no new orders at this time. Patient oliguric per previous
charting, denies any pain/pressure or urgency at this time.
Original Note:
Patient's castillo placed in OR yesterday pulled early afternoon by this RN per vascular surgery; patient bladder scanned for 542 ml by tech ~2 hours later; patient states no concerns at this time, abdomen nondistended and patient denies any
pain/pressure or urgency. made aware, stated to continue monitoring for symptoms and repeat bladder scan at 1800.
[2023-05-19] MEDS: SENOKOT-S 2 TABLET PO ×2 (15:00→21:00)
[2023-05-19 15:40] VITALS: BP 135/85
[2023-05-19 16:44] LABS: Glucose - Point of Care 235 mg/dl (70-99)
[2023-05-19] MEDS: NOVOLOG FLEXPEN-HIGH RESISTANCE 4 UNITS SC (18:03)
[2023-05-19 19:56] VITALS: BP 109/66
[2023-05-19] MEDS: LIPITOR 80 MG PO (21:00)
[2023-05-19] MEDS: COREG 3.125 MG PO (21:00)
[2023-05-19 21:38] LABS: Glucose - Point of Care 139 mg/dl (70-99)
[2023-05-19] MEDS: LANTUS 0.719999999999999973 UNITS SC (22:05)
[2023-05-19 23:41] VITALS: BP 126/70
[2023-05-20] VITALS (7 sets, daily range): BP systolic 101–113; BP diastolic 56–65; BMI 32.2
[2023-05-20] MEDS: TYLENOL 1000 MG PO (01:12)
[2023-05-20] MEDS: DILAUDID 0.5 MG IV ×2 (01:37→19:04)
[2023-05-20] MEDS: SYNTHROID 25 MCG PO (05:24)
[2023-05-20] MEDS: ProAmatine 5 MG PO ×3 (07:49→17:06)
[2023-05-20 07:50] LABS: Glucose - Point of Care 104 mg/dl (70-99)
[2023-05-20] MEDS: NOVOLOG FLEXPEN-HIGH RESISTANCE SC ×2 (07:52→12:38)
--- NOTE | 2023-05-20 08:06 | PTOTSP ---
Pt remains on bedrest post-op left BKA per vascular service. Will continue to hold PT at this time. Will need new orders for PT when stable to resume activity.
[2023-05-20 08:14] LABS: Hematocrit 28.5 % (39.0-52.0); Hemoglobin 9.4 g/dL (13.0-18.0)
[2023-05-20 08:21] LABS: Carbon Dioxide 27 mmol/L (22-30); Chloride 91 mmol/L (98-107); Potassium 4.4 mmol/L (3.5-5.1); Sodium 132 mmol/L (135-145)
[2023-05-20] MEDS: RETACRIT 10000 UNITS IV (09:00)
[2023-05-20] MEDS: MANNITOL 12.5 GRAMS IV (10:36)
[2023-05-20] MEDS: DILAUDID PCA 30 IV (10:44)
--- NOTE | 2023-05-20 11:01 | W.PN.HOSP.TC ---
Today's Communication/Plan
-
Monitor vital signs and see plan
PT/OT orders per vascular surgery
HD today
On RN MANAGED CARE pump
blood cx
Assessment / Plan
Assessment / Plan
Physical exam:
General: Awake and alertnot in distress and holds appropriate conversation.
HEENT: No active discharge
Respiratory: normal chest wall movement, normal respiratory effort, no respiratory distress,
Heart: S1, S2 regular, normal rate, no added sound.
Gastrointestinal:soft, nontender, no guarding
Extremities: Dressing on the left below-knee amputation stump, no active discharge, some black eschar at the tip of the right big toe, no evidence of infection
psych: calm
Streptococcus agalactiae bacteremia-suspect from left foot. Appt ID input. abx stopped. would check new bcx to ensure clearance
Chronic left heel wound- podiatry following. Patient has been following podiatry for long time. Last debridement a week ago. He states he has been dealing with for almost a year now.
-s/p left lower extremity below the knee amputation
-MRI foot shows OM Calcaneus and talus bone with small amount of devitalized soft tissue at the margin of the wound inferior to calcaneus
-Status post below-knee amputation today,
-Vascular surgery and podiatry appreciated
-Continue to biotic for now
-RN MANAGED CARE pump with Dilaudid per vascular
-cw laxatives
ESRD on HD
-Usual dialysis days are MoWeFr, however patient did not received HD today May 12
-cw HD support
Acute hypoxic respiratory insufficiency
Pt on O2;cxr �Diffusely increased interstitial markings which i suspect clinically interstitial edema
Resolved with HD
wean o2 as tolerated
ASCVD s/p CABG and LLE Stent
-Continue aspirin
Chronic HFrEF
-Monitor Is&Os and Daily Weights
Hyperlipidemia
-Continue atorvastatin
Diabetes Mellitus, Type II
- Poorly controlled . Hemoglobin A1c 9.3. Patient states that he lost his benefits for continuous glucometer so is not checking blood sugars at home. He states that he eats much less than what he eats at home but still sugars are high.
-He is not requiring all his nutritional insulin and even having low sugars in the morning. Decrease the dose of Lantus. Continue with the sliding scale. DC nutritional insulin.
-I suspect dietary discretions playing a role at home
stage 2 lower back and sacral pressure decub ulcer
Diabetic Neuropathy
-Continue gabapentin
Hypothyroidism
-Continue Synthroid
Mild anemia
Suspect anemia chronic disease
DVT proph: SC Heparin
Ultrasound of the left leg shows no evidence of DVT
Code Status: Full Code
P/OT per vascular
Anticipated Discharge: > 48 hours
Subjective/Interval History
-
Date of Service: May 20, 2023
has pain
Objective Data
-
Labs:
Laboratory Results
05/20/23
08:02
Hgb 9.4 L
Hct 28.5 L
Sodium 132 L
Potassium 4.4
Chloride 91 L
Carbon Dioxide 27
Vital Signs:
Vital Signs
Temp Pulse Resp BP Pulse Ox
99.1 F 75 16 105/60 98
05/20/23 07:15 05/20/23 07:15 05/20/23 08:00 05/20/23 07:49 05/20/23 08:00
I&O
05/19/23 05/20/23 05/21/23
06:59 06:59 06:59
Intake Total 770 / 770 2640 / 2640
Output Total 170 / 170 100 / 100
Balance 600 / 600 2540 / 2540
--- NOTE | 2023-05-20 11:24 | W.PN.NEPH.HD ---
Assessment
-
Seen on HD pain in amp site. VSS, acccess ok
await placement for rehab
Progress Note - Hemodialysis
-
Date of Service: May 20, 2023
Duration: 30 minutes and 3 hours
Potassium Bath: 2
Calcium Bath: 2.5
Opti-Dialyzer: 160
Ultrafiltration: Other (2kg)
Blood Flow: 400
Dialysate Flow: 600
Heparin: no
EPO: [id number] units
[2023-05-20 12:20] LABS: Glucose - Point of Care 92 mg/dl (70-99)
[2023-05-20] MEDS: SENOKOT-S 2 TABLET PO ×2 (12:34→20:20)
[2023-05-20] MEDS: ASPIR LOW (ENTERIC COATED) 81 MG PO (12:34)
[2023-05-20] MEDS: NEURONTIN 300 MG PO (12:34)
[2023-05-20] MEDS: COREG PO ×2 (12:34→20:20)
[2023-05-20] MEDS: HYDROPHOR 1 APPLIC TOPICAL (12:35)
[2023-05-20] MEDS: HEPARIN 5000 UNITS SC ×2 (12:35→17:06)
--- NOTE | 2023-05-20 13:49 | W.PN.VS ---
Documented by User: Dionisio Crowley MD, Resident 05/20/23 13:52
Today's Communication / Plan
-
Continue with dressing changes
Continue DIVISION LEADER as needed for postoperative pain
Continue spirometry
Assessment/Plan
-
Assessment: 63-year-old male POD #1 s/p left BKA.
Plan:
Continue with dressing changes
Continue DIVISION LEADER as needed for postoperative pain
Continue spirometry
Subjective Data
-
Date of Service: May 20, 2023
Patient without compalints. See this AM during bedside dialysis session.
Objective Data
-
Vital Signs
Temp Pulse Resp BP Pulse Ox
97.8 F 73 16 101/65 98
05/20/23 11:11 05/20/23 12:34 05/20/23 12:00 05/20/23 12:34 05/20/23 11:11
Intake and Output
05/19/23 05/20/23 05/21/23
06:59 06:59 06:59
Intake Total 770 / 770 2640 / 2640
Output Total 170 / 170 100 / 100
Balance 600 / 600 2540 / 2540
Intake:
Oral fluids 720 / 720 1800 / 1800
IV fluids (Total) 50 / 50 840 / 840
normosol 50 / 50
Output:
Urine, Ritchie 170 / 170 100 / 100
Lab Results
05/20/23 08:02
05/20/23 08:02
Calcium 8.1 mg/dl (8.4-10.2) L 05/19/23 05:17
Magnesium 2.2 mg/dl (1.6-2.3) 05/14/23 07:01
Total Bilirubin 1.3 mg/dl (0.2-1.3) 05/13/23 17:12
AST 36 U/L (17-59) 05/13/23 17:12
ALT 31 U/L (0-50) 05/13/23 17:12
Alkaline Phosphatase 154 U/L (38-126) H 05/13/23 17:12
Total Protein 7.3 g/dl (6.3-8.2) 05/13/23 17:12
Albumin 3.6 g/dl (3.5-5.0) 05/13/23 17:12
Physical Exam
-
Neuro: A&Ox3
Cardiac: RRR
Pulm: CTAB
Abdomen: Soft, non-tender, non-distended
Extremities: amputation site clean, dry, intact

Documented by User: Son Ritchie III, MD 05/20/23 14:22
Today's Communication / Plan
-
Continue with dressing changes
Continue DIVISION LEADER as needed for postoperative pain
Continue spirometry
This patient was seen and examined with dionisio Crowley MD PGY-1. I agree with the history and physical exam as well as the assessment and plan. I have the following additions:
Below-knee amputation wound is clean and dry
Comfortable on DIVISION LEADER
Okay to wean DIVISION LEADER and initiate oral analgesia
Stump protector (called prosthetic company to deliver)
F/U with me in the office after DC
Signed:
Son Ritchie III, MD
[facility] Vascular Surgery
[phone] (cell)
--- NOTE | 2023-05-20 14:08 | CM ---
Reviewed the chart notes. Per PT, patient is still on bedrest. Will need PT evaluation for placement. CM continues to be available to patient/family and is monitoring medical plan for needs at discharge.
Plan: Discharge to SNF/rehab once medically stable and bed found. Patient is a HD patient and facilities will be limited for placement. No precert required.
[2023-05-20 16:43] LABS: Glucose - Point of Care 150 mg/dl (70-99)
[2023-05-20] MEDS: NOVOLOG FLEXPEN-HIGH RESISTANCE 2 UNITS SC (17:07)
[2023-05-20] MEDS: COMPAZINE 5 MG IV (20:18)
[2023-05-20 21:19] LABS: Glucose - Point of Care 140 mg/dl (70-99)
[2023-05-20] MEDS: LANTUS 0.719999999999999973 UNITS SC (22:01)
[2023-05-20] MEDS: LIPITOR 80 MG PO (22:02)
[2023-05-21] VITALS (8 sets, daily range): BP systolic 100–127; BP diastolic 54–67; BMI 31.8
[2023-05-21] MEDS: HEPARIN 5000 UNITS SC ×4 (01:19→23:02)
[2023-05-21 06:51] LABS: Glucose - Point of Care 123 mg/dl (70-99)
[2023-05-21] MEDS: SENOKOT-S 2 TABLET PO ×2 (08:02→20:54)
[2023-05-21] MEDS: ASPIR LOW (ENTERIC COATED) 81 MG PO (08:03)
[2023-05-21] MEDS: COREG PO (08:03)
[2023-05-21] MEDS: SYNTHROID 25 MCG PO (08:03)
[2023-05-21] MEDS: MIRALAX 17 GRAMS PO (08:04)
[2023-05-21] MEDS: ProAmatine 5 MG PO ×3 (08:04→17:56)
[2023-05-21] MEDS: NOVOLOG FLEXPEN-HIGH RESISTANCE 1 UNITS SC (08:24)
[2023-05-21] MEDS: HYDROPHOR 1 APPLIC TOPICAL (08:32)
[2023-05-21 09:04] LABS: % Basophils 0.7 % (0-2); % Eosinophils 2.3 % (0-6); % Immature Granulocytes 0.8 % (0-0.5); % Lymphocytes 10.2 % (20.5-51.1); % Monocytes 9.6 % (1.7-9.3); % Neutrophils 76.4 % (42.2-75.2); Absolute Basophils 0.1 10^3/uL (0-0.2); Absolute Eosinophils 0.2 10^3/uL (0-0.7); Absolute Immature Granulocytes 0.1 10^3/uL (0-0.05); Absolute Monocytes 0.9 10^3/uL (0.1-0.6); Absolute Neutrophils 7.4 10^3/uL (1.4-6.5); Hematocrit 27.1 % (39.0-52.0); Hemoglobin 8.7 g/dL (13.0-18.0); Mean Corp Hgb Conc. 32.1 g/dL (33.0-37.0); Mean Corpuscular Hgb 30.4 pg (27.0-31.0); Mean Corpuscular Volume 94.8 fL (80.0-94.0); Mean Platelet Volume 9.4 fL (7.4-10.4); Nucleated Red Blood Cells % 0 % (-); Platelet Count 220 10^3/uL (130-400); Red Blood Cell Count 2.86 10^6/uL (4.70-6.10); Red Cell Dist. Width 15.2 % (11.5-14.5); White Blood Cell Count 9.6 10^3/uL (4.8-10.8)
[2023-05-21 09:34] LABS: Blood Urea Nitrogen 31 mg/dl (9-20); Carbon Dioxide 24 mmol/L (22-30); Chloride 92 mmol/L (98-107); Estimated Creatinine Clearance 18 ml/min; Glucose 93 mg/dl (70-99); Potassium 3.3 mmol/L (3.5-5.1); Sodium 127 mmol/L (135-145); eGFR 12.64
--- NOTE | 2023-05-21 11:18 | W.PN.HOSP.TC ---
Today's Communication/Plan
-
Monitor vital signs and see plan
GEOTECHNICAL DEPARTMENT MANAGER pump per vascular
laxatives
PT/OT orders per vascular
cw insulin
bcx pending
path pending
Assessment / Plan
Assessment / Plan
Physical exam:
General: Awake and alert, not in distress
HEENT: No active discharge
Respiratory: normal chest wall movement, normal respiratory effort, no respiratory distress,
Heart: S1, S2 regular, normal rate, no added sound.
Gastrointestinal:soft, nontender, no guarding
Extremities: Dressing on the left below-knee amputation stump, no active discharge, some black eschar at the tip of the right big toe, no evidence of infection
psych: calm
Streptococcus agalactiae bacteremia-suspect from left foot. Appt ID input. abx stopped. would check new bcx to ensure clearance
Chronic left heel wound- podiatry following. Patient has been following podiatry for long time. Last debridement a week ago. He states he has been dealing with for almost a year now.
-s/p left lower extremity below the knee amputation
-MRI foot shows OM Calcaneus and talus bone with small amount of devitalized soft tissue at the margin of the wound inferior to calcaneus
-Status post below-knee amputation 05/17
-Vascular surgery and podiatry appreciated
ID stopped abx
-GEOTECHNICAL DEPARTMENT MANAGER pump with Dilaudid per vascular
-cw laxatives
ESRD on HD
-Usual dialysis days are MoWeFr, however patient did not received HD today May 12
-cw HD support
Acute hypoxic respiratory insufficiency
Pt on O2;cxr �Diffusely increased interstitial markings which i suspect clinically interstitial edema
Resolved with HD
wean o2 as tolerated
ASCVD s/p CABG and LLE Stent
-Continue aspirin
Chronic HFrEF
-Monitor Is&Os and Daily Weights
Hyperlipidemia
-Continue atorvastatin
Diabetes Mellitus, Type II
- Poorly controlled . Hemoglobin A1c 9.3. Patient states that he lost his benefits for continuous glucometer so is not checking blood sugars at home. He states that he eats much less than what he eats at home but still sugars are high.
-He is not requiring all his nutritional insulin and even having low sugars in the morning. Decrease the dose of Lantus. Continue with the sliding scale. DC nutritional insulin.
-I suspect dietary discretions playing a role at home
stage 2 lower back and sacral pressure decub ulcer
Diabetic Neuropathy
-Continue gabapentin
Hypothyroidism
-Continue Synthroid
Mild anemia
Suspect anemia chronic disease
DVT proph: SC Heparin
Ultrasound of the left leg shows no evidence of DVT
Code Status: Full Code
P/OT per vascular
Anticipated Discharge: > 48 hours
Subjective/Interval History
-
Date of Service: May 21, 2023
still has some pain
Objective Data
-
Labs:
Laboratory Results
05/21/23
08:01
WBC 9.6
Hgb 8.7 L
Hct 27.1 L
Plt Count 220 D
Sodium 127 L
Potassium 3.3 L
Chloride 92 L
Carbon Dioxide 24
BUN 31 H
Creatinine 4.9 H*
Glucose 93
Calcium 7.0 L
Vital Signs:
Vital Signs
Temp Pulse Resp BP Pulse Ox
98.5 F 78 16 103/54 98
05/21/23 07:15 05/21/23 08:04 05/21/23 08:00 05/21/23 08:04 05/21/23 10:23
I&O
05/20/23 05/21/23 05/22/23
06:59 06:59 06:59
Intake Total 2640 / 2640 420 / 420 1020 / 1020
Output Total 100 / 100
Balance 2540 / 2540 420 / 420 1020 / 1020
[2023-05-21] MEDS: 0.45%NACL 1000 IV (11:51)
[2023-05-21 12:22] LABS: Glucose - Point of Care 205 mg/dl (70-99)
[2023-05-21] MEDS: NEURONTIN 300 MG PO (12:41)
[2023-05-21] MEDS: NOVOLOG FLEXPEN-HIGH RESISTANCE 4 UNITS SC (12:42)
--- NOTE | 2023-05-21 13:28 | W.PN.NEPH.PH ---
Today's Communication / Plan
-
HD tuesday
Assessment/Plan
-
Impression;
Fevers/Sepsis/gram Positive bacteremia
Status post left lower extremity BKA 05/18/2023
End-stage renal disease Tuesday
Left heel wound infection
Diabetes
History of CABG and left lower extremities to
History of congestive heart
Diabetic neuropathy
Hypothyroid
Chronic Hypotension
Anemia
Ischemic cardiomyopathy EF 30%
Pulmonary hypertension
Left upper extremity AV
Plan:
-HD tuesday
-Midodrine has been utilized for hypotension
-Left upper extremity AV fistula with good function
-Will provide MATTHIEU therapy as needed for anemia
-Appropriate dietary and fluid restrictions to be ordered for ESRD
-watch volume status with IVF for DATA MANAGER
-
-
Date of Service: May 21, 2023
CC / HPI / ROS
-
Chief Complaint:
End-stage renal disease
History of Present Illness:
End-stage renal disease on Tuesday schedule
tolerated HD Tuesday
Hemodynamically labile on midodrine support
Zosyn for strep agalactiae bacteremia
Status post left BKA on date 05/18/2023
on DATA MANAGER pump with basal IVF
Review of Systems:
No chest pain or shortness of breath
Postoperative surgical pain
Labs
-
Labs:
WBC 9.6 10^3/uL (4.8-10.8) 05/21/23 08:01
RBC 2.86 10^6/uL (4.70-6.10) L 05/21/23 08:01
Hgb 8.7 g/dL (13.0-18.0) L 05/21/23 08:01
Hct 27.1 % (39.0-52.0) L 05/21/23 08:01
Plt Count 220 10^3/uL (130-400) D 05/21/23 08:01
Sodium 127 mmol/L (135-145) L 05/21/23 08:01
Potassium 3.3 mmol/L (3.5-5.1) L 05/21/23 08:01
Chloride 92 mmol/L (98-107) L 05/21/23 08:01
Carbon Dioxide 24 mmol/L (22-30) 05/21/23 08:01
BUN 31 mg/dl (9-20) H 05/21/23 08:01
Creatinine 4.9 mg/dL (0.7-1.3) H* 05/21/23 08:01
eGFR 12.64 05/21/23 08:01
Glucose 93 mg/dl (70-99) 05/21/23 08:01
Calcium 7.0 mg/dl (8.4-10.2) L 05/21/23 08:01
Albumin 3.6 g/dl (3.5-5.0) 05/13/23 17:12
Physical Exam
-
Vital Signs:
Vital Signs
Temp Pulse Resp BP Pulse Ox
98.5 F 78 14 108/56 96
05/21/23 07:15 05/21/23 12:41 05/21/23 12:40 05/21/23 12:41 05/21/23 12:40
Cardiovascular:: Regular rate and rhythm
Respiratory:: Bilateral: Coarse
Lung Excursion:: Normal
Abdomen:: Nontender and Soft
Bowel Sounds:: Normal
Extremity Edema:: None: Bilateral:
[2023-05-21 16:50] LABS: Glucose - Point of Care 189 mg/dl (70-99)
[2023-05-21] MEDS: NOVOLOG FLEXPEN-HIGH RESISTANCE 2 UNITS SC (17:51)
[2023-05-21] MEDS: COREG 3.125 MG PO (20:52)
[2023-05-21] MEDS: TYLENOL 1000 MG PO (20:56)
[2023-05-21 21:40] LABS: Glucose - Point of Care 182 mg/dl (70-99)
[2023-05-21] MEDS: LIPITOR 80 MG PO (22:17)
[2023-05-21] MEDS: LANTUS 0.719999999999999973 UNITS SC (22:18)
[2023-05-22] VITALS (7 sets, daily range): BP systolic 94–128; BP diastolic 51–64; BMI 31.9
[2023-05-22] MEDS: SYNTHROID 25 MCG PO (05:40)
[2023-05-22] MEDS: 0.45%NACL IV (06:30)
[2023-05-22 07:11] LABS: Glucose - Point of Care 95 mg/dl (70-99)
[2023-05-22 08:23] LABS: % Basophils 0.6 % (0-2); % Eosinophils 2.2 % (0-6); % Lymphocytes 8.6 % (20.5-51.1); % Monocytes 11.6 % (1.7-9.3); Absolute Basophils 0.1 10^3/uL (0-0.2); Absolute Eosinophils 0.2 10^3/uL (0-0.7); Absolute Immature Granulocytes 0.1 10^3/uL (0-0.05); Absolute Lymphocytes 0.8 10^3/uL (1.2-3.4); Absolute Monocytes 1.1 10^3/uL (0.1-0.6); Absolute Neutrophils 6.9 10^3/uL (1.4-6.5); Hematocrit 26.5 % (39.0-52.0); Hemoglobin 8.5 g/dL (13.0-18.0); Mean Corp Hgb Conc. 32.1 g/dL (33.0-37.0); Mean Corpuscular Hgb 30.4 pg (27.0-31.0); Mean Corpuscular Volume 94.6 fL (80.0-94.0); Mean Platelet Volume 9.2 fL (7.4-10.4); Nucleated Red Blood Cells % 0 % (-); Platelet Count 216 10^3/uL (130-400); Red Cell Dist. Width 15.3 % (11.5-14.5)
[2023-05-22] MEDS: NOVOLOG FLEXPEN-HIGH RESISTANCE 1 UNITS SC ×3 (08:35→17:39)
[2023-05-22] MEDS: HEPARIN 5000 UNITS SC ×3 (08:35→23:16)
[2023-05-22] MEDS: ASPIR LOW (ENTERIC COATED) 81 MG PO (08:36)
[2023-05-22] MEDS: SENOKOT-S 2 TABLET PO (08:36)
[2023-05-22] MEDS: ProAmatine 5 MG PO ×3 (08:37→17:39)
[2023-05-22] MEDS: COREG PO (08:37)
[2023-05-22] MEDS: HYDROPHOR 1 APPLIC TOPICAL (08:37)
[2023-05-22] MEDS: 0.45%NACL 1000 IV (08:38)
[2023-05-22] MEDS: MIRALAX 17 GRAMS PO (08:38)
[2023-05-22 08:57] LABS: Blood Urea Nitrogen 37 mg/dl (9-20); Calcium 6.6 mg/dl (8.4-10.2); Carbon Dioxide 23 mmol/L (22-30); Chloride 91 mmol/L (98-107); Estimated Creatinine Clearance 17 ml/min; Glucose 71 mg/dl (70-99); Potassium 3.1 mmol/L (3.5-5.1); Sodium 123 mmol/L (135-145)
[2023-05-22] MEDS: CALCIUM GLUCONATE 100 IV (09:43)
[2023-05-22 09:59] LABS: Albumin 2.1 g/dl (3.5-5.0)
--- NOTE | 2023-05-22 10:17 | W.PN.NEPH.PH ---
Today's Communication / Plan
-
HD tomorrow
Assessment/Plan
-
Impression;
Fevers/Sepsis/gram Positive bacteremia
Status post left lower extremity BKA 05/18/2023
End-stage renal disease Tuesday
Left heel wound infection
Diabetes
History of CABG and left lower extremities to
History of congestive heart
Diabetic neuropathy
Hypothyroid
Chronic Hypotension
Anemia
Ischemic cardiomyopathy EF 30%
Pulmonary hypertension
Left upper extremity AV
Plan:
-HD tuesday
-Midodrine has been utilized for hypotension
-Left upper extremity AV fistula with good function
-Will provide MATTHIEU therapy as needed for anemia
-Appropriate dietary and fluid restrictions to be ordered for ESRD
-change IVF to NSS, reduce rate
-replete K, Calcium
-
-
Date of Service: May 22, 2023
CC / HPI / ROS
-
Chief Complaint:
End-stage renal disease
History of Present Illness:
End-stage renal disease on Tuesday schedule
tolerated HD Tuesday
Hemodynamically labile on midodrine support
Zosyn for strep agalactiae bacteremia
Status post left BKA on date 05/18/2023
on SURVEY PARTY CHIEF pump with basal IVF
K and calcium low
Review of Systems:
No chest pain or shortness of breath
Postoperative surgical pain
Labs
-
Labs:
WBC 9.0 10^3/uL (4.8-10.8) 05/22/23 07:54
RBC 2.80 10^6/uL (4.70-6.10) L 05/22/23 07:54
Hgb 8.5 g/dL (13.0-18.0) L 05/22/23 07:54
Hct 26.5 % (39.0-52.0) L 05/22/23 07:54
Plt Count 216 10^3/uL (130-400) 05/22/23 07:54
Sodium 123 mmol/L (135-145) L 05/22/23 07:54
Potassium 3.1 mmol/L (3.5-5.1) L 05/22/23 07:54
Chloride 91 mmol/L (98-107) L 05/22/23 07:54
Carbon Dioxide 23 mmol/L (22-30) 05/22/23 07:54
BUN 37 mg/dl (9-20) H 05/22/23 07:54
Creatinine 5.3 mg/dL (0.7-1.3) H* 05/22/23 07:54
eGFR 11.50 05/22/23 07:54
Glucose 71 mg/dl (70-99) 05/22/23 07:54
Calcium 6.6 mg/dl (8.4-10.2) L* 05/22/23 07:54
Albumin 2.1 g/dl (3.5-5.0) L 05/22/23 09:28
Physical Exam
-
Vital Signs:
Vital Signs
Temp Pulse Resp BP Pulse Ox
98.4 F 68 18 100/64 98
05/22/23 07:05 05/22/23 08:37 05/22/23 08:00 05/22/23 08:37 05/22/23 08:00
Cardiovascular:: Regular rate and rhythm
Respiratory:: Bilateral: Coarse
Lung Excursion:: Normal
Abdomen:: Nontender and Soft
Bowel Sounds:: Normal
Extremity Edema:: +1: Bilateral:
[2023-05-22 11:15] LABS: Glucose - Point of Care 145 mg/dl (70-99)
--- NOTE | 2023-05-22 11:15 | W.PN.HOSP.TC ---
Today's Communication/Plan
-
Monitor vital signs see plan
Per vascular no restrictions with physical therapy, PT/OT ordered
HD per nephrology
Replete potassium, calcium
Assessment / Plan
Assessment / Plan
Physical exam:
General: Awake and alert, not in distress
HEENT: No active discharge
Respiratory: normal chest wall movement, normal respiratory effort, no respiratory distress,
Heart: S1, S2 regular, normal rate, no added sound.
Gastrointestinal:soft, nontender, no guarding
Extremities: Dressing on the left below-knee amputation stump, no active discharge, some black eschar at the tip of the right big toe, no evidence of infection
psych: calm
Streptococcus agalactiae bacteremia-suspect from left foot. Appt ID input. abx stopped. would check new bcx to ensure clearance
Chronic left heel wound- podiatry following. Patient has been following podiatry for long time. Last debridement a week ago. He states he has been dealing with for almost a year now.
-s/p left lower extremity below the knee amputation
-MRI foot shows OM Calcaneus and talus bone with small amount of devitalized soft tissue at the margin of the wound inferior to calcaneus
-Status post below-knee amputation 05/17
-Vascular surgery and podiatry appreciated
ID stopped abx
-SURG RN pump with Dilaudid per vascular
-cw laxatives
ESRD on HD
-Usual dialysis days are MoWeFr, however patient did not received HD today May 12
-cw HD support
Acute hypoxic respiratory insufficiency
Pt on O2;cxr �Diffusely increased interstitial markings which i suspect clinically interstitial edema
Resolved with HD
wean o2 as tolerated
Hypokalemia
replete
Hypocalcemia
replete
Hyponatremia
Managed with dialysis
ASCVD s/p CABG and LLE Stent
-Continue aspirin
Chronic HFrEF
-Monitor Is&Os and Daily Weights
Hyperlipidemia
-Continue atorvastatin
Diabetes Mellitus, Type II
- Poorly controlled . Hemoglobin A1c 9.3. Patient states that he lost his benefits for continuous glucometer so is not checking blood sugars at home. He states that he eats much less than what he eats at home but still sugars are high.
-He is not requiring all his nutritional insulin and even having low sugars in the morning. Decrease the dose of Lantus. Continue with the sliding scale. DC nutritional insulin.
-I suspect dietary discretions playing a role at home
stage 2 lower back and sacral pressure decub ulcer
Diabetic Neuropathy
-Continue gabapentin
Hypothyroidism
-Continue Synthroid
Mild anemia
Suspect anemia chronic disease
DVT proph: SC Heparin
Ultrasound of the left leg shows no evidence of DVT
Code Status: Full Code
P/OT per vascular; discussed with vascular and ordered PT/OT
Anticipated Discharge: > 48 hours
Subjective/Interval History
-
Date of Service: May 22, 2023
has some pain
Objective Data
-
Labs:
Laboratory Results
05/22/23
07:54
WBC 9.0
Hgb 8.5 L
Hct 26.5 L
Plt Count 216
Sodium 123 L
Potassium 3.1 L
Chloride 91 L
Carbon Dioxide 23
BUN 37 H
Creatinine 5.3 H*
Glucose 71
Calcium 6.6 L*
Vital Signs:
Vital Signs
Temp Pulse Resp BP Pulse Ox
98.4 F 68 18 100/64 98
05/22/23 07:05 05/22/23 08:37 05/22/23 08:00 05/22/23 08:37 05/22/23 08:00
I&O
05/21/23 05/22/23 05/23/23
06:59 06:59 06:59
Intake Total 420 / 420 3270 / 3270
Balance 420 / 420 3270 / 3270
[2023-05-22] MEDS: NEURONTIN 300 MG PO (11:33)
[2023-05-22] MEDS: KCL 20 MEQ PO (11:34)
[2023-05-22] MEDS: DULCOLAX 10 MG RECTAL (11:35)
[2023-05-22] MEDS: NSS 1000 IV (11:35)
[2023-05-22 16:35] LABS: Glucose - Point of Care 132 mg/dl (70-99)
--- NOTE | 2023-05-22 18:30 | PTCARENOTE ---
Vascular MD messaged regarding new wound care for L BKA. This RN was told to redress with dry dressing and gentle wrap with THEODORE. Covered with stump protector as advised by MD. Pt offers no complaints at this time, call quinn within reach.
[2023-05-22] MEDS: COREG 3.125 MG PO (20:25)
[2023-05-22] MEDS: SENOKOT-S PO (20:25)
[2023-05-22 21:31] LABS: Glucose - Point of Care 120 mg/dl (70-99)
[2023-05-22] MEDS: LIPITOR 80 MG PO (21:40)
[2023-05-22] MEDS: LANTUS 0.719999999999999973 UNITS SC (21:40)
[2023-05-23] VITALS (7 sets, daily range): BP systolic 100–128; BP diastolic 47–77; PULSE 74; O2SAT 95; BMI 32.3
[2023-05-23] MEDS: DILAUDID PCA 30 IV (04:42)
[2023-05-23] MEDS: SYNTHROID 25 MCG PO (06:29)
[2023-05-23] MEDS: ProAmatine 10 MG PO (06:30)
[2023-05-23 07:11] LABS: Glucose - Point of Care 72 mg/dl (70-99)
[2023-05-23 08:14] LABS: % Immature Granulocytes 0.7 % (0-0.5); % Lymphocytes 8.6 % (20.5-51.1); % Monocytes 11.5 % (1.7-9.3); % Neutrophils 75.2 % (42.2-75.2); Absolute Basophils 0.1 10^3/uL (0-0.2); Absolute Eosinophils 0.3 10^3/uL (0-0.7); Absolute Immature Granulocytes 0.1 10^3/uL (0-0.05); Absolute Lymphocytes 0.9 10^3/uL (1.2-3.4); Absolute Monocytes 1.2 10^3/uL (0.1-0.6); Absolute Neutrophils 7.6 10^3/uL (1.4-6.5); Hemoglobin 9.3 g/dL (13.0-18.0); Mean Corp Hgb Conc. 32.1 g/dL (33.0-37.0); Mean Corpuscular Hgb 29.9 pg (27.0-31.0); Mean Corpuscular Volume 93.2 fL (80.0-94.0); Mean Platelet Volume 8.9 fL (7.4-10.4); Nucleated Red Blood Cells % 0 % (-); Platelet Count 267 10^3/uL (130-400); Red Blood Cell Count 3.11 10^6/uL (4.70-6.10); Red Cell Dist. Width 15.3 % (11.5-14.5); White Blood Cell Count 10.1 10^3/uL (4.8-10.8)
[2023-05-23] MEDS: RETACRIT 10000 UNITS IV (08:36)
[2023-05-23] MEDS: MANNITOL 12.5 GRAMS IV ×2 (08:36→09:52)
[2023-05-23] MEDS: FLEXBUMIN 25% FOR HEMODIALYSIS 12.5 GRAMS IV ×2 (08:36→09:52)
[2023-05-23] MEDS: NOVOLOG FLEXPEN-HIGH RESISTANCE SC ×4 (08:47→17:22)
[2023-05-23 08:49] LABS: Blood Urea Nitrogen 52 mg/dl (9-20); Calcium 8.2 mg/dl (8.4-10.2); Carbon Dioxide 24 mmol/L (22-30); Chloride 97 mmol/L (98-107); Estimated Creatinine Clearance 11 ml/min; Glucose 76 mg/dl (70-99); Sodium 132 mmol/L (135-145); eGFR 7.23
--- NOTE | 2023-05-23 10:13 | W.PN.NEPH.HD ---
Assessment
-
pt seen during HD
vitals stable
on high dose midodrine pre HD
on PRE PRESS MANAGER with low NS IVF
renal diet and FR strictly
gabby better
high k bath
AVF functions well
Progress Note - Hemodialysis
-
Date of Service: May 23, 2023
Duration: 30 minutes and 3 hours
Potassium Bath: 4
Calcium Bath: 2.5
Opti-Dialyzer: 160
Ultrafiltration: Other (2.5-3kg)
Blood Flow: 400
Dialysate Flow: 600
Heparin: no
EPO: [id number]
[2023-05-23] MEDS: MIRALAX PO (10:21)
[2023-05-23] MEDS: SENOKOT-S PO ×2 (10:21→21:31)
[2023-05-23] MEDS: ProAmatine PO (10:22)
--- NOTE | 2023-05-23 11:31 | W.PN.HOSP.TC ---
Today's Communication/Plan
-
monitor vitals
see plan
PT/OT
HD today
pain control; HOOP MAKER HELPER MACHINE per vascular
wound care
Assessment / Plan
Assessment / Plan
Physical exam:
General: Awake and alert, not in distress
HEENT: No active discharge
Respiratory: normal chest wall movement, normal respiratory effort, no respiratory distress,
Heart: S1, S2 regular, normal rate, no added sound.
Gastrointestinal:soft, nontender, no guarding
Extremities: Dressing on the left below-knee amputation stump, no active discharge, some black eschar at the tip of the right big toe, no evidence of infection
psych: calm
Streptococcus agalactiae bacteremia-suspect from left foot. Appt ID input. abx stopped. would check new bcx to ensure clearance
Chronic left heel wound- podiatry following. Patient has been following podiatry for long time. Last debridement a week ago. He states he has been dealing with for almost a year now.
-s/p left lower extremity below the knee amputation
-MRI foot shows OM Calcaneus and talus bone with small amount of devitalized soft tissue at the margin of the wound inferior to calcaneus
-Status post below-knee amputation 05/17
-Vascular surgery and podiatry appreciated
ID stopped abx
-HOOP MAKER HELPER MACHINE pump with Dilaudid per vascular
-cw laxatives
ESRD on HD
-Usual dialysis days are MoWeFr, however patient did not received HD today May 12
-cw HD support
Acute hypoxic respiratory insufficiency
Pt on O2;cxr �Diffusely increased interstitial markings which i suspect clinically interstitial edema
Resolved with HD
wean o2 as tolerated
Hypokalemia
improved
Hypocalcemia
improved
Hyponatremia
Managed with dialysis
ASCVD s/p CABG and LLE Stent
-Continue aspirin
Chronic HFrEF
-Monitor Is&Os and Daily Weights
Hyperlipidemia
-Continue atorvastatin
Diabetes Mellitus, Type II
- Poorly controlled . Hemoglobin A1c 9.3. Patient states that he lost his benefits for continuous glucometer so is not checking blood sugars at home. He states that he eats much less than what he eats at home but still sugars are high.
-He is not requiring all his nutritional insulin and even having low sugars in the morning. Decrease the dose of Lantus. Continue with the sliding scale. DC nutritional insulin.
-I suspect dietary discretions playing a role at home
stage 2 lower back and sacral pressure decub ulcer
Diabetic Neuropathy
-Continue gabapentin
Hypothyroidism
-Continue Synthroid
Mild anemia
Suspect anemia chronic disease
DVT proph: SC Heparin
Ultrasound of the left leg shows no evidence of DVT
Code Status: Full Code
P/OT per vascular; discussed with vascular and ordered PT/OT
Anticipated Discharge: 24 - 48 hours
Subjective/Interval History
-
Date of Service: May 23, 2023
denies nausea
Objective Data
-
Labs:
Laboratory Results
05/23/23
07:50
WBC 10.1
Hgb 9.3 L
Hct 29.0 L
Plt Count 267 D
Sodium 132 L D
Potassium 4.0 D
Chloride 97 L
Carbon Dioxide 24
BUN 52 H
Creatinine 7.8 H*
Glucose 76
Calcium 8.2 L D
Vital Signs:
Vital Signs
Temp Pulse Resp BP Pulse Ox
98.1 F 77 18 122/77 98
05/23/23 11:15 05/23/23 11:15 05/23/23 11:15 05/23/23 11:15 05/23/23 11:15
I&O
05/22/23 05/23/23 05/24/23
06:59 06:59 06:59
Intake Total 3270 / 3270 2460 / 2459
Output Total 150 / 150
Balance 3269 231 / 231
[2023-05-23 12:00] LABS: Glucose - Point of Care 70 mg/dl (70-99)
[2023-05-23] MEDS: ASPIR LOW (ENTERIC COATED) 81 MG PO (12:03)
[2023-05-23] MEDS: ProAmatine 5 MG PO ×3 (12:03→21:31)
[2023-05-23] MEDS: COREG 3.125 MG PO (12:03)
[2023-05-23] MEDS: NEURONTIN 300 MG PO (12:03)
[2023-05-23] MEDS: HEPARIN 5000 UNITS SC ×3 (12:04→23:56)
[2023-05-23] MEDS: HYDROPHOR 1 APPLIC TOPICAL (12:53)
--- NOTE | 2023-05-23 16:00 | CM ---
Reviewed the chart notes. Patient continues with ETHICS MANAGER pump. HD today. SNF placement. Barrier to placement with be HD. CM continues to be available to patient/family and is monitoring medical plan for needs at discharge.
Plan: Discharge to SNF/rehab once medically stable and bed found. Patient receives HD .
[2023-05-23] MEDS: NSS IV (17:13)
[2023-05-23 17:20] LABS: Glucose - Point of Care 66 mg/dl (70-99)
[2023-05-23 17:54] LABS: Glucose - Point of Care 92 mg/dl (70-99)
[2023-05-23] MEDS: COREG PO (21:30)
[2023-05-23] MEDS: LIPITOR 80 MG PO (21:31)
[2023-05-23] MEDS: ROXICODONE 5 MG PO (21:31)
[2023-05-23 21:37] LABS: Glucose - Point of Care 86 mg/dl (70-99)
[2023-05-23] MEDS: LANTUS 0.200000000000000011 UNITS SC (22:36)
[2023-05-24 03:06] LABS: Glucose - Point of Care 62 mg/dl (70-99)
[2023-05-24 03:11] VITALS: BP 103/55
[2023-05-24 03:32] LABS: Glucose - Point of Care 57 mg/dl (70-99)
[2023-05-24 03:55] LABS: Glucose - Point of Care 69 mg/dl (70-99)
[2023-05-24 04:20] LABS: Glucose - Point of Care 83 mg/dl (70-99)
[2023-05-24 05:55] VITALS: BMI 31.9
[2023-05-24] MEDS: SYNTHROID 25 MCG PO (06:14)
[2023-05-24 06:18] LABS: Glucose - Point of Care 94 mg/dl (70-99)
[2023-05-24 06:42] LABS: % Basophils 0.8 % (0-2); % Eosinophils 3.7 % (0-6); % Immature Granulocytes 0.6 % (0-0.5); % Lymphocytes 9.6 % (20.5-51.1); % Neutrophils 70.3 % (42.2-75.2); Absolute Basophils 0.1 10^3/uL (0-0.2); Absolute Eosinophils 0.3 10^3/uL (0-0.7); Absolute Immature Granulocytes 0.1 10^3/uL (0-0.05); Absolute Lymphocytes 0.8 10^3/uL (1.2-3.4); Absolute Monocytes 1.3 10^3/uL (0.1-0.6); Absolute Neutrophils 5.9 10^3/uL (1.4-6.5); Hematocrit 27.8 % (39.0-52.0); Mean Corp Hgb Conc. 32.4 g/dL (33.0-37.0); Mean Corpuscular Hgb 30.1 pg (27.0-31.0); Mean Platelet Volume 9.1 fL (7.4-10.4); Nucleated Red Blood Cells % 0 % (-); Platelet Count 243 10^3/uL (130-400); Red Blood Cell Count 2.99 10^6/uL (4.70-6.10); Red Cell Dist. Width 15.2 % (11.5-14.5); White Blood Cell Count 8.4 10^3/uL (4.8-10.8)
[2023-05-24 07:14] LABS: Blood Urea Nitrogen 34 mg/dl (9-20); Carbon Dioxide 31 mmol/L (22-30); Chloride 93 mmol/L (98-107); Estimated Creatinine Clearance 16 ml/min; Glucose 78 mg/dl (70-99); Sodium 132 mmol/L (135-145); eGFR 10.77
[2023-05-24 07:21] LABS: Glucose - Point of Care 88 mg/dl (70-99)
[2023-05-24 07:57] VITALS: BP 105/67
[2023-05-24] MEDS: NOVOLOG FLEXPEN-HIGH RESISTANCE SC ×2 (08:56→12:01)
[2023-05-24] MEDS: MIRALAX PO (08:58)
[2023-05-24] MEDS: ASPIR LOW (ENTERIC COATED) 81 MG PO (08:58)
[2023-05-24] MEDS: ProAmatine 5 MG PO ×4 (08:58→23:27)
[2023-05-24] MEDS: SENOKOT-S PO ×2 (08:59→20:39)
[2023-05-24] MEDS: COREG PO ×2 (08:59→20:38)
[2023-05-24] MEDS: HYDROPHOR 1 APPLIC TOPICAL (09:00)
[2023-05-24] MEDS: HEPARIN 5000 UNITS SC ×3 (09:00→23:27)
[2023-05-24] MEDS: ROXICODONE 5 MG PO ×2 (09:25→20:39)
--- NOTE | 2023-05-24 10:44 | W.PN.HOSP.TC ---
Today's Communication/Plan
-
Monitor vitals
see plan
pain control
Decrease Lantus
PT/OT recommending SNF
Assessment / Plan
Assessment / Plan
Physical exam:
General: Awake and alert, not in distress
HEENT: anicterus,pink conjuctivae
Respiratory: normal chest wall movement, normal respiratory effort, no respiratory distress,
Heart: S1, S2 regular, normal rate, no added sound.
Gastrointestinal:soft, nontender, no guarding
Extremities: Dressing on the left below-knee amputation stump, no active discharge, some black eschar at the tip of the right big toe, no evidence of infection
psych: calm
Streptococcus agalactiae bacteremia-suspect from left foot. Appt ID input. abx stopped. would check new bcx to ensure clearance
Chronic left heel wound- podiatry following. Patient has been following podiatry for long time. Last debridement a week ago. He states he has been dealing with for almost a year now.
-s/p left lower extremity below the knee amputation
-MRI foot shows OM Calcaneus and talus bone with small amount of devitalized soft tissue at the margin of the wound inferior to calcaneus
-Status post below-knee amputation 05/17
-Vascular surgery and podiatry appreciated
ID stopped abx
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
-cw laxatives
ESRD on HD
-Usual dialysis days are MoWeFr, however patient did not received HD today May 12
-cw HD support
Acute hypoxic respiratory insufficiency
Pt on O2;cxr �Diffusely increased interstitial markings which i suspect clinically interstitial edema
Resolved with HD
wean o2 as tolerated
Hypokalemia
improved
Hypocalcemia
improved
Hyponatremia
Managed with dialysis
ASCVD s/p CABG and LLE Stent
-Continue aspirin
Chronic HFrEF
-Monitor Is&Os and Daily Weights
Hyperlipidemia
-Continue atorvastatin
Diabetes Mellitus, Type II
- Poorly controlled . Hemoglobin A1c 9.3. Patient states that he lost his benefits for continuous glucometer so is not checking blood sugars at home. He states that he eats much less than what he eats at home but still sugars are high.
-He is not requiring all his nutritional insulin and still sugars low at times; dec lantus to 20units. Decrease the dose of Lantus. Continue with the sliding scale.
stage 2 lower back and sacral pressure decub ulcer
Diabetic Neuropathy
-Continue gabapentin
Hypothyroidism
-Continue Synthroid
Mild anemia
Suspect anemia chronic disease
DVT proph: SC Heparin
Ultrasound of the left leg shows no evidence of DVT
Code Status: Full Code
PT/OT rec SNF
Anticipated Discharge: Within 24 hours
Subjective/Interval History
-
Date of Service: May 24, 2023
Was hypoglycemic overnight
Objective Data
-
Labs:
Laboratory Results
05/24/23
05:31
WBC 8.4
Hgb 9.0 L
Hct 27.8 L
Plt Count 243
Sodium 132 L
Potassium 4.0
Chloride 93 L
Carbon Dioxide 31 H
BUN 34 H
Creatinine 5.6 H*
Glucose 78
Calcium 8.0 L
Vital Signs:
Vital Signs
Temp Pulse Resp BP Pulse Ox
98.7 F 74 16 105/67 95
05/24/23 07:57 05/24/23 08:59 05/24/23 07:57 05/24/23 08:59 05/24/23 07:57
I&O
05/23/23 05/24/23 05/25/23
06:59 06:59 06:59
Intake Total 2460 / 2460 780 / 780
Output Total 150 / 150 100 / 100
Balance 2309 / 2309 680 / 680
[2023-05-24] MEDS: NEURONTIN 300 MG PO (11:57)
[2023-05-24 12:01] LABS: Glucose - Point of Care 129 mg/dl (70-99)
--- NOTE | 2023-05-24 12:45 | PTCARENOTE ---
No wound care orders ordered for this patients L BKA. Vascular made aware. Vascular ordered to keep THEODORE wrap/ stump protector on. Change daily. Will place along to oncoming nurse.
[2023-05-24 15:03] VITALS: BP 110/62
--- NOTE | 2023-05-24 15:52 | CM ---
Reviewed chart notes and spoke with the patient at the bedside. IMM signed and placed on the chart. Reviewed facilities with interest in patient: [facility], [facility], and [facility]. [facility] requested flow sheets
and Hep B labs. Forwarded for their review. continues to be available to patient/family and is monitoring medical plan for needs at discharge.
Plan: Discharge to SNF/rehab once bed found. No precert required.
--- NOTE | 2023-05-24 16:44 | W.PN.NEPH.PH ---
Today's Communication / Plan
-
HD tomorrow
Assessment/Plan
-
Impression;
Fevers/Sepsis/gram Positive bacteremia
Status post left lower extremity BKA 05/18/2023
End-stage renal disease Tuesday
Left heel wound infection
Diabetes
History of CABG and left lower extremities to
History of congestive heart
Diabetic neuropathy
Hypothyroid
Chronic Hypotension
Anemia
Ischemic cardiomyopathy EF 30%
Pulmonary hypertension
Left upper extremity AV
Plan:
-HD tomorrow
-Midodrine has been utilized for hypotension and pre HD
-Left upper extremity AV fistula with good function
-Will provide MATTHIEU therapy as needed for anemia
-Appropriate dietary and fluid restrictions to be ordered for ESRD
monitor k and gabby-seem to stabilize
need SNF
-
-
Date of Service: May 24, 2023
CC / HPI / ROS
-
Chief Complaint:
End-stage renal disease
History of Present Illness:
End-stage renal disease on Tuesday schedule
tolerated HD yesterday
Hemodynamically labile on midodrine support
Status post left BKA on date 05/18/2023
K and calcium better
Review of Systems:
No chest pain or shortness of breath
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
Labs
-
Labs:
WBC 8.4 10^3/uL (4.8-10.8) 05/24/23 05:31
RBC 2.99 10^6/uL (4.70-6.10) L 05/24/23 05:31
Hgb 9.0 g/dL (13.0-18.0) L 05/24/23 05:31
Hct 27.8 % (39.0-52.0) L 05/24/23 05:31
Plt Count 243 10^3/uL (130-400) 05/24/23 05:31
Sodium 132 mmol/L (135-145) L 05/24/23 05:31
Potassium 4.0 mmol/L (3.5-5.1) 05/24/23 05:31
Chloride 93 mmol/L (98-107) L 05/24/23 05:31
Carbon Dioxide 31 mmol/L (22-30) H 05/24/23 05:31
BUN 34 mg/dl (9-20) H 05/24/23 05:31
Creatinine 5.6 mg/dL (0.7-1.3) H* 05/24/23 05:31
eGFR 10.77 05/24/23 05:31
Glucose 78 mg/dl (70-99) 05/24/23 05:31
Calcium 8.0 mg/dl (8.4-10.2) L 05/24/23 05:31
Albumin 2.1 g/dl (3.5-5.0) L 05/22/23 09:28
Physical Exam
-
Vital Signs:
Vital Signs
Temp Pulse Resp BP Pulse Ox
98.1 F 75 16 110/62 90
05/24/23 15:03 05/24/23 15:03 05/24/23 15:03 05/24/23 15:03 05/24/23 15:03
Cardiovascular:: Regular rate and rhythm
Respiratory:: Bilateral: CTA
Lung Excursion:: Normal
Abdomen:: Nontender and Soft
Extremity Edema:: +1: Right:
Ritchie Catheter: No
Other Findings::
left BKA
[2023-05-24 17:10] LABS: Glucose - Point of Care 140 mg/dl (70-99)
[2023-05-24] MEDS: NOVOLOG FLEXPEN-HIGH RESISTANCE 1 UNITS SC (17:54)
[2023-05-24 20:25] VITALS: BP 112/59
[2023-05-24 21:21] LABS: Glucose - Point of Care 167 mg/dl (70-99)
[2023-05-24] MEDS: LANTUS 0.200000000000000011 UNITS SC (22:55)
[2023-05-24] MEDS: LIPITOR 80 MG PO (22:55)
[2023-05-24 23:55] VITALS: BP 97/52
[2023-05-25 03:20] VITALS: BP 108/64
[2023-05-25 03:32] LABS: Glucose - Point of Care 137 mg/dl (70-99)
[2023-05-25] MEDS: SYNTHROID 25 MCG PO (05:28)
[2023-05-25 06:00] VITALS: BMI 32.2
[2023-05-25] MEDS: ProAmatine 5 MG PO ×4 (06:33→16:42)
[2023-05-25 07:35] VITALS: BP 112/67
[2023-05-25] MEDS: COREG PO ×2 (07:37→20:38)
[2023-05-25] MEDS: HYDROPHOR 1 APPLIC TOPICAL (07:37)
[2023-05-25 07:38] LABS: Glucose - Point of Care 160 mg/dl (70-99)
[2023-05-25] MEDS: SENOKOT-S PO ×2 (07:38→20:38)
[2023-05-25] MEDS: MIRALAX PO (07:38)
[2023-05-25] MEDS: NOVOLOG FLEXPEN-HIGH RESISTANCE SC ×2 (07:45→16:56)
[2023-05-25 08:14] LABS: % Eosinophils 3.2 % (0-6); % Immature Granulocytes 0.7 % (0-0.5); % Lymphocytes 8.9 % (20.5-51.1); % Monocytes 11.3 % (1.7-9.3); % Neutrophils 74.9 % (42.2-75.2); Absolute Basophils 0.1 10^3/uL (0-0.2); Absolute Eosinophils 0.3 10^3/uL (0-0.7); Absolute Immature Granulocytes 0.1 10^3/uL (0-0.05); Absolute Lymphocytes 0.8 10^3/uL (1.2-3.4); Absolute Neutrophils 6.3 10^3/uL (1.4-6.5); Hematocrit 28.6 % (39.0-52.0); Hemoglobin 9.2 g/dL (13.0-18.0); Mean Corp Hgb Conc. 32.2 g/dL (33.0-37.0); Mean Corpuscular Hgb 29.5 pg (27.0-31.0); Mean Corpuscular Volume 91.7 fL (80.0-94.0); Mean Platelet Volume 9.1 fL (7.4-10.4); Nucleated Red Blood Cells % 0 % (-); Platelet Count 241 10^3/uL (130-400); Red Blood Cell Count 3.12 10^6/uL (4.70-6.10); Red Cell Dist. Width 15.2 % (11.5-14.5); White Blood Cell Count 8.4 10^3/uL (4.8-10.8)
[2023-05-25 08:48] LABS: Blood Urea Nitrogen 42 mg/dl (9-20); Calcium 8.4 mg/dl (8.4-10.2); Carbon Dioxide 28 mmol/L (22-30); Chloride 91 mmol/L (98-107); Estimated Creatinine Clearance 13 ml/min; Glucose 167 mg/dl (70-99); Potassium 4.1 mmol/L (3.5-5.1); Sodium 132 mmol/L (135-145); eGFR 8.24
[2023-05-25] MEDS: FLEXBUMIN 25% FOR HEMODIALYSIS 12.5 GRAMS IV ×2 (08:50→10:04)
--- NOTE | 2023-05-25 08:50 | W.PN.NEPH.HD ---
Assessment
-
Patient seen on Hd
sbp 93 at current u/f
Progress Note - Hemodialysis
-
Date of Service: May 25, 2023
Duration: 30 minutes and 3 hours
Potassium Bath: 3
Calcium Bath: 2.5
Opti-Dialyzer: 160
Ultrafiltration: Other (3 kg)
Blood Flow: 400
Dialysate Flow: 600
Heparin: none
EPO: 6K
[2023-05-25] MEDS: MANNITOL 12.5 GRAMS IV ×2 (08:51→10:05)
[2023-05-25] MEDS: RETACRIT 6000 UNITS IV (08:52)
[2023-05-25 11:51] LABS: Glucose - Point of Care 117 mg/dl (70-99)
[2023-05-25] MEDS: TYLENOL 1000 MG PO (11:51)
[2023-05-25] MEDS: NOVOLOG FLEXPEN-HIGH RESISTANCE 1 UNITS SC ×2 (11:51→16:52)
[2023-05-25] MEDS: ASPIR LOW (ENTERIC COATED) 81 MG PO (11:51)
[2023-05-25] MEDS: NEURONTIN 300 MG PO (11:52)
[2023-05-25] MEDS: HEPARIN 5000 UNITS SC ×3 (12:03→23:31)
--- NOTE | 2023-05-25 12:05 | W.PN.HOSP.TC ---
Today's Communication/Plan
-
AXR
start dispo
Assessment / Plan
Assessment / Plan
Physical exam:
General: Awake and alert, not in distress
HEENT: anicteric,pink conjunctivae
Respiratory: normal chest wall movement, normal respiratory effort, no respiratory distress,
Heart: S1, S2 regular, normal rate, no added sound.
Gastrointestinal:soft, nontender, no guarding
Extremities: Dressing on the left below-knee amputation stump, no active discharge, some black eschar at the tip of the right big toe, no evidence of infection
psych: calm
Streptococcus agalactiae bacteremia-suspect from left foot. Appt ID input. abx stopped. would check new bcx to ensure clearance
Chronic left heel wound- podiatry following. Patient has been following podiatry for long time. Last debridement a week ago. He states he has been dealing with for almost a year now.
-s/p left lower extremity below the knee amputation
-MRI foot shows OM Calcaneus and talus bone with small amount of devitalized soft tissue at the margin of the wound inferior to calcaneus
-Status post below-knee amputation 05/17
-Vascular surgery and podiatry appreciated
ID stopped abx
-[employer] pump dc'ed by me 05/22; now on Iv prn dialudid and oxycodone
-cw laxatives
Dry heaves/nausea at times
-AXR
ESRD on HD
-Usual dialysis days are MoWeFr, however patient did not received HD today May 12
-cw HD support
Acute hypoxic respiratory insufficiency
Pt on O2;cxr �Diffusely increased interstitial markings which i suspect clinically interstitial edema
Resolved with HD
wean o2 as tolerated
Hypokalemia
improved
Hypocalcemia
improved
Hyponatremia
Managed with dialysis
ASCVD s/p CABG and LLE Stent
-Continue aspirin
Chronic HFrEF
-Monitor Is&Os and Daily Weights
Hyperlipidemia
-Continue atorvastatin
Diabetes Mellitus, Type II
- Poorly controlled . Hemoglobin A1c 9.3. Patient states that he lost his benefits for continuous glucometer so is not checking blood sugars at home. He states that he eats much less than what he eats at home but still sugars are high.
-He is not requiring all his nutritional insulin and still sugars low at times; dec lantus to 20units. Decrease the dose of Lantus. Continue with the sliding scale. POC 160
stage 2 lower back and sacral pressure decub ulcer
Diabetic Neuropathy
-Continue gabapentin
Hypothyroidism
-Continue Synthroid
Mild anemia
Suspect anemia chronic disease
DVT proph: SC Heparin
Ultrasound of the left leg shows no evidence of DVT
Code Status: Full Code
PT/OT rec SNF
Anticipated Discharge: > 48 hours
Subjective/Interval History
-
Date of Service: May 25, 2023
states of some dry heaves
on HD currently
Objective Data
-
Labs:
Laboratory Results
05/25/23
07:53
WBC 8.4
Hgb 9.2 L
Hct 28.6 L
Plt Count 241
Sodium 132 L
Potassium 4.1
Chloride 91 L
Carbon Dioxide 28
BUN 42 H
Creatinine 7.0 H*
Glucose 167 H
Calcium 8.4
Vital Signs:
Vital Signs
Temp Pulse Resp BP Pulse Ox
98.2 F 70 16 110/62 96
05/25/23 07:35 05/25/23 12:03 05/25/23 07:35 05/25/23 12:03 05/25/23 07:35
I&O
05/24/23 05/25/23 05/26/23
06:59 06:59 06:59
Intake Total 780 / 780 960 / 960
Output Total 100 / 100 400 / 400
Balance 680 / 680 560 / 560
--- NOTE | 2023-05-25 12:57 | WOUNDNOTE ---
R GREAT TOE (MEDIAL PLANTAR)
--- NOTE | 2023-05-25 13:00 | WOUNDNOTE ---
R 2ND TOE
--- NOTE | 2023-05-25 13:00 | WOUNDNOTE ---
R BKA STUMP (LATERAL)
--- NOTE | 2023-05-25 13:00 | WOUNDNOTE ---
L BKA STUMP (with photo flash)
--- NOTE | 2023-05-25 13:01 | WOUNDNOTE ---
L BKA STUMP (LATERAL)
--- NOTE | 2023-05-25 13:04 | WOUNDNOTE ---
WO RN note: Patient's R sacral/buttocks skin with a dull red/purple dry intact abraded area. Overall sacral/buttocks skin looks improved from last week's pic. RLE almost healed. No sting barrier wipe applied to R dorsal 2nd toe dry scab and R great
toe Skin on R heel intact without redness. L BKA incision with carlos intact. Dry gauze/ABD pad changed, Kee wrap and stump protector reapplied. Patient turned to R semi side lying position. Patient instructed pressure injury preventions measures.
He can turn self in bed. R heel off bed with pillow. Patient interested in soft heel relief boot. Will confirm with vascular PA. Updated ÓSCAR Melgoza. ÓSCAR Melgoza plans to [facility].
[2023-05-25] MEDS: ROXICODONE 5 MG PO (14:17)
--- NOTE | 2023-05-25 14:28 | CM ---
Reviewed the chart notes. Message left for admissions Manuela Brady with regards to HD bed availability. CM continues to be available to patient/family and is monitoring medical plan for needs at discharge.
Plan: Discharge to SNF/rehab once bed found and facility found that can accommodate a HD patient.
--- NOTE | 2023-05-25 14:45 | WOUNDNOTE ---
WO RN note: confirmed with vascular Jessi Tejada NP that a RLE soft heel relief boot an be used (i.e. TruVue lite boot). Also, confirmed with Dr. Hahn. t/c SPD and ordered a TruVue lite boot for patient. Care plan and discharge instructions
updated.
[2023-05-25 15:00] VITALS: O2SAT 96
--- NOTE | 2023-05-25 15:30 | WOUNDNOTE ---
Patient is now on a [facility] air bed.
[2023-05-25 15:35] VITALS: BP 108/49
[2023-05-25 15:48] VITALS: O2SAT 96
[2023-05-25] MEDS: DULCOLAX 10 MG PO (16:42)
[2023-05-25 16:52] LABS: Glucose - Point of Care 120 mg/dl (70-99)
[2023-05-25 21:55] LABS: Glucose - Point of Care 140 mg/dl (70-99)
[2023-05-25] MEDS: LIPITOR 80 MG PO (21:59)
[2023-05-25] MEDS: LANTUS 0.200000000000000011 UNITS SC (21:59)
[2023-05-25 23:53] VITALS: BP 102/57
[2023-05-26 04:58] LABS: % Eosinophils 3.8 % (0-6); % Immature Granulocytes 0.4 % (0-0.5); % Monocytes 12.2 % (1.7-9.3); % Neutrophils 68.6 % (42.2-75.2); Absolute Basophils 0.1 10^3/uL (0-0.2); Absolute Eosinophils 0.3 10^3/uL (0-0.7); Absolute Lymphocytes 1.1 10^3/uL (1.2-3.4); Absolute Neutrophils 5.4 10^3/uL (1.4-6.5); Hematocrit 30.9 % (39.0-52.0); Hemoglobin 9.7 g/dL (13.0-18.0); Mean Corp Hgb Conc. 31.4 g/dL (33.0-37.0); Mean Corpuscular Hgb 29.3 pg (27.0-31.0); Mean Corpuscular Volume 93.4 fL (80.0-94.0); Mean Platelet Volume 9.2 fL (7.4-10.4); Nucleated Red Blood Cells % 0 % (-); Platelet Count 200 10^3/uL (130-400); Red Blood Cell Count 3.31 10^6/uL (4.70-6.10); Red Cell Dist. Width 15.3 % (11.5-14.5); White Blood Cell Count 7.9 10^3/uL (4.8-10.8)
[2023-05-26 05:23] LABS: Blood Urea Nitrogen 30 mg/dl (9-20); Calcium 8.1 mg/dl (8.4-10.2); Carbon Dioxide 31 mmol/L (22-30); Chloride 94 mmol/L (98-107); Estimated Creatinine Clearance 17 ml/min; Glucose 136 mg/dl (70-99); Sodium 133 mmol/L (135-145); eGFR 11.77
[2023-05-26] MEDS: SYNTHROID 25 MCG PO (06:14)
[2023-05-26 07:21] VITALS: BP 107/58
[2023-05-26 07:35] LABS: Glucose - Point of Care 127 mg/dl (70-99)
[2023-05-26] MEDS: ProAmatine 5 MG PO ×3 (08:05→17:33)
[2023-05-26] MEDS: COREG PO ×2 (08:07→20:01)
[2023-05-26] MEDS: SENOKOT-S 2 TABLET PO ×2 (08:08→20:01)
[2023-05-26] MEDS: ASPIR LOW (ENTERIC COATED) 81 MG PO (08:10)
[2023-05-26] MEDS: MIRALAX PO (08:12)
[2023-05-26] MEDS: HEPARIN 5000 UNITS SC ×3 (08:12→23:14)
[2023-05-26] MEDS: NOVOLOG FLEXPEN-HIGH RESISTANCE 1 UNITS SC (08:15)
[2023-05-26] MEDS: ROXICODONE 5 MG PO (09:56)
--- NOTE | 2023-05-26 10:09 | W.PN.HOSP.TC ---
Today's Communication/Plan
-
bowel regimen
HD per nephro
await placement
Assessment / Plan
Assessment / Plan
Physical exam:
General: Awake and alert, not in distress
HEENT: anicteric,pink conjunctivae
Respiratory: normal chest wall movement, normal respiratory effort, no respiratory distress,
Heart: S1, S2 regular, normal rate, no added sound.
Gastrointestinal:soft, nontender, no guarding
Extremities: Dressing on the left below-knee amputation stump, no active discharge, some black eschar at the tip of the right big toe, no evidence of infection
psych: calm
Streptococcus agalactiae bacteremia-suspect from left foot. Appt ID input. abx stopped. would check new bcx to ensure clearance
Chronic left heel wound- podiatry following. Patient has been following podiatry for long time. Last debridement a week ago. He states he has been dealing with for almost a year now.
-s/p left lower extremity below the knee amputation
-MRI foot shows OM Calcaneus and talus bone with small amount of devitalized soft tissue at the margin of the wound inferior to calcaneus
-Status post below-knee amputation 05/17
-Vascular surgery and podiatry appreciated
ID stopped abx
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
-cw laxatives
Dry heaves/nausea at times
-AXR with moderate fecal burden
-Started on aggressive bowel regimen
ESRD on HD
-Usual dialysis days are MoWeFr, however patient did not received HD today May 12
-cw HD support
Acute hypoxic respiratory insufficiency
Pt on O2;cxr �Diffusely increased interstitial markings which i suspect clinically interstitial edema
Resolved with HD
wean o2 as tolerated
Hypokalemia
improved
Hypocalcemia
improved
Hyponatremia
Managed with dialysis
ASCVD s/p CABG and LLE Stent
-Continue aspirin
Chronic HFrEF
-Monitor Is&Os and Daily Weights
Hyperlipidemia
-Continue atorvastatin
Diabetes Mellitus, Type II
- Poorly controlled . Hemoglobin A1c 9.3. Patient states that he lost his benefits for continuous glucometer so is not checking blood sugars at home. He states that he eats much less than what he eats at home but still sugars are high.
-He is not requiring all his nutritional insulin and still sugars low at times; dec lantus to 20units. Decrease the dose of Lantus. Continue with the sliding scale. POC 127
stage 2 lower back and sacral pressure decub ulcer
Diabetic Neuropathy
-Continue gabapentin
Hypothyroidism
-Continue Synthroid
Mild anemia
Suspect anemia chronic disease
DVT proph: SC Heparin
Ultrasound of the left leg shows no evidence of DVT
Code Status: Full Code
PT/OT rec SNF. awaiting placement. Cm aware.
Anticipated Discharge: Within 24 hours
Subjective/Interval History
-
Date of Service: May 26, 2023
Tolerating diet
Denies any dry heaves or nausea
Objective Data
-
Labs:
Laboratory Results
05/26/23
04:27
WBC 7.9
Hgb 9.7 L
Hct 30.9 L
Plt Count 200
Sodium 133 L
Potassium 4.0
Chloride 94 L
Carbon Dioxide 31 H
BUN 30 H
Creatinine 5.2 H*
Glucose 136 H
Calcium 8.1 L
Vital Signs:
Vital Signs
Temp Pulse Resp BP Pulse Ox
98.8 F 69 18 107/58 93
05/26/23 07:21 05/26/23 08:07 05/26/23 07:21 05/26/23 08:07 05/26/23 07:21
I&O
05/25/23 05/26/23 05/27/23
06:59 06:59 06:59
Intake Total 960 / 960 1020 / 1020
Output Total 400 / 400
Balance 560 / 560 1020 / 1020
[2023-05-26] MEDS: HYDROPHOR 1 APPLIC TOPICAL (10:19)
--- NOTE | 2023-05-26 10:53 | CM ---
Reviewed the chart notes and spoke with the patient at the bedside. The patient is requesting additional referrals be sent out close to [facility]. Referrals sent. CM continues to be available to patient/family and is
monitoring medical plan for needs at discharge.
Plan: Discharge to SNF/rehab once a facility found that has HD on site or willing to transport the patient.
[2023-05-26] MEDS: MILK OF MAGNESIA 30 ML PO (10:57)
[2023-05-26 11:41] VITALS: BP 106/56
--- NOTE | 2023-05-26 11:54 | W.PN.NEPH.PH ---
Today's Communication / Plan
-
Dialysis tomorrow
Assessment/Plan
-
Impression;
Fevers/Sepsis/gram Positive bacteremia
Status post left lower extremity BKA 05/18/2023
End-stage renal disease Tuesday
Left heel wound infection
Diabetes
History of CABG and left lower extremities to
History of congestive heart
Diabetic neuropathy
Hypothyroid
Chronic Hypotension
Anemia
Ischemic cardiomyopathy EF 30%
Pulmonary hypertension
Left upper extremity AV
Plan:
-HD tomorrow, orders provided
-For rehab placement
-Midodrine has been utilized for hypotension and pre HD
-Left upper extremity AV fistula with good function
-Will provide MATTHIEU therapy as needed for anemia
-Appropriate dietary and fluid restrictions to be ordered for ESRD
-monitor k and gabby-seem to stabilize
-Pain control status post left BKA
-
-
Date of Service: May 26, 2023
CC / HPI / ROS
-
Chief Complaint:
End-stage renal disease
History of Present Illness:
End-stage renal disease on Tuesday schedule
tolerated HD yesterday
Hemodynamically labile on midodrine support
Status post left BKA on date 05/18/2023
K and calcium better
Review of Systems:
No chest pain or shortness of breath
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
Labs
-
Labs:
WBC 7.9 10^3/uL (4.8-10.8) 05/26/23 04:27
RBC 3.31 10^6/uL (4.70-6.10) L 05/26/23 04:27
Hgb 9.7 g/dL (13.0-18.0) L 05/26/23 04:27
Hct 30.9 % (39.0-52.0) L 05/26/23 04:27
Plt Count 200 10^3/uL (130-400) 05/26/23 04:27
Sodium 133 mmol/L (135-145) L 05/26/23 04:27
Potassium 4.0 mmol/L (3.5-5.1) 05/26/23 04:27
Chloride 94 mmol/L (98-107) L 05/26/23 04:27
Carbon Dioxide 31 mmol/L (22-30) H 05/26/23 04:27
BUN 30 mg/dl (9-20) H 05/26/23 04:27
Creatinine 5.2 mg/dL (0.7-1.3) H* 05/26/23 04:27
eGFR 11.77 05/26/23 04:27
Glucose 136 mg/dl (70-99) H 05/26/23 04:27
Calcium 8.1 mg/dl (8.4-10.2) L 05/26/23 04:27
Albumin 2.1 g/dl (3.5-5.0) L 05/22/23 09:28
Physical Exam
-
Vital Signs:
Vital Signs
Temp Pulse Resp BP Pulse Ox
98.8 F 68 18 106/56 93
05/26/23 07:21 05/26/23 11:41 05/26/23 07:21 05/26/23 11:41 05/26/23 07:21
Cardiovascular:: Regular rate and rhythm
Lung Excursion:: Normal
Abdomen:: Nontender and Soft
Bowel Sounds:: Normal
Extremity Edema:: +1: Bilateral: and None: Left: (BKA)
Ritchie Catheter: No
[2023-05-26] MEDS: NEURONTIN 300 MG PO (11:58)
[2023-05-26 12:03] LABS: Glucose - Point of Care 191 mg/dl (70-99)
[2023-05-26] MEDS: NOVOLOG FLEXPEN-HIGH RESISTANCE 2 UNITS SC (12:08)
[2023-05-26 14:57] VITALS: BP 114/60
[2023-05-26 16:45] LABS: Glucose - Point of Care 149 mg/dl (70-99)
[2023-05-26] MEDS: NOVOLOG FLEXPEN-HIGH RESISTANCE SC (17:32)
[2023-05-26 21:51] LABS: Glucose - Point of Care 145 mg/dl (70-99)
[2023-05-26] MEDS: LANTUS 0.200000000000000011 UNITS SC (21:59)
[2023-05-26] MEDS: LIPITOR 80 MG PO (21:59)
[2023-05-26 23:17] VITALS: BP 109/70
[2023-05-27 05:57] VITALS: BMI 32.3
[2023-05-27] MEDS: SYNTHROID 25 MCG PO (06:24)
[2023-05-27] MEDS: ROXICODONE 5 MG PO (06:38)
[2023-05-27] MEDS: HEPARIN SC (07:24)
[2023-05-27] MEDS: ASPIR LOW (ENTERIC COATED) PO (07:24)
[2023-05-27] MEDS: COREG PO ×2 (07:24→21:07)
[2023-05-27] MEDS: HYDROPHOR 1 APPLIC TOPICAL (07:24)
[2023-05-27] MEDS: MIRALAX PO (07:25)
[2023-05-27] MEDS: ProAmatine 10 MG PO (07:27)
[2023-05-27] MEDS: SENOKOT-S PO (07:33)
[2023-05-27] MEDS: ProAmatine PO (07:33)
[2023-05-27 07:34] VITALS: BP 110/63
[2023-05-27 07:38] LABS: Glucose - Point of Care 130 mg/dl (70-99)
[2023-05-27] MEDS: NOVOLOG FLEXPEN-HIGH RESISTANCE SC ×2 (07:44→12:13)
[2023-05-27 08:29] LABS: Hematocrit 29.1 % (39.0-52.0); Hemoglobin 9.6 g/dL (13.0-18.0)
[2023-05-27 08:45] LABS: Carbon Dioxide 30 mmol/L (22-30); Chloride 92 mmol/L (98-107); Sodium 131 mmol/L (135-145)
[2023-05-27] MEDS: RETACRIT 8000 UNITS IV (09:00)
[2023-05-27 09:06] LABS: Potassium 4.3 mmol/L (3.5-5.1)
--- NOTE | 2023-05-27 10:14 | W.PN.NEPH.HD ---
Assessment
-
pt seen during HD
vitals stable on midodrine
always issue with diet indiscretion
large UFs needed
reviewed with pt imp of FR
await placement
AVF functions well
Progress Note - Hemodialysis
-
Date of Service: May 27, 2023
Duration: 30 minutes and 3 hours
Potassium Bath: 3
Calcium Bath: 2.5
Opti-Dialyzer: 160
Ultrafiltration: Other (2.5-3kg)
Blood Flow: 400
Dialysate Flow: 600
Heparin: no
EPO: 8000
--- NOTE | 2023-05-27 10:23 | W.PN.HOSP.TC ---
Today's Communication/Plan
-
HD today
Await placement
Pain control
Bowel regimen
Assessment / Plan
Assessment / Plan
Physical exam:
General: Awake and alert, not in distress
HEENT: anicteric,pink conjunctivae
Respiratory: normal chest wall movement, normal respiratory effort, no respiratory distress,
Heart: S1, S2 regular, normal rate, no added sound.
Gastrointestinal:soft, nontender, no guarding
Extremities: Dressing on the left below-knee amputation stump, no active discharge, some black eschar at the tip of the right big toe, no evidence of infection
psych: calm
Streptococcus agalactiae bacteremia-suspect from left foot. Appt ID input. abx stopped. would check new bcx to ensure clearance
Chronic left heel wound- podiatry following. Patient has been following podiatry for long time. Last debridement a week ago. He states he has been dealing with for almost a year now.
-s/p left lower extremity below the knee amputation
-MRI foot shows OM Calcaneus and talus bone with small amount of devitalized soft tissue at the margin of the wound inferior to calcaneus
-Status post below-knee amputation 05/17
-Vascular surgery and podiatry appreciated
ID stopped abx
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
-cw laxatives
Dry heaves/nausea at times
-AXR with moderate fecal burden
-Started on aggressive bowel regimen
ESRD on HD
-Usual dialysis days are MoWeFr, however patient did not received HD today May 12
-cw HD support
Acute hypoxic respiratory insufficiency
Pt on O2;cxr �Diffusely increased interstitial markings which i suspect clinically interstitial edema
Resolved with HD
wean o2 as tolerated
Hypokalemia
improved
Hypocalcemia
improved
Hyponatremia
Managed with dialysis
ASCVD s/p CABG and LLE Stent
-Continue aspirin
Chronic HFrEF
-Monitor Is&Os and Daily Weights
Hyperlipidemia
-Continue atorvastatin
Diabetes Mellitus, Type II
- Poorly controlled . Hemoglobin A1c 9.3. Patient states that he lost his benefits for continuous glucometer so is not checking blood sugars at home. He states that he eats much less than what he eats at home but still sugars are high.
-dec lantus to 20units. Decrease the dose of Lantus. Continue with the sliding scale. POC 130
stage 2 lower back and sacral pressure decub ulcer
Diabetic Neuropathy
-Continue gabapentin
Hypothyroidism
-Continue Synthroid
Mild anemia
Suspect anemia chronic disease
DVT proph: SC Heparin
Ultrasound of the left leg shows no evidence of DVT
Code Status: Full Code
PT/OT rec SNF. awaiting placement. Difficult disposition due to HD requirement. Case management aware
Anticipated Discharge: Within 24 hours
Subjective/Interval History
-
Date of Service: May 27, 2023
Seen on HD
Bottles of soda around the room
Objective Data
-
Labs:
Laboratory Results
05/27/23
08:00
Hgb 9.6 L
Hct 29.1 L
Sodium 131 L
Potassium 4.3
Chloride 92 L
Carbon Dioxide 30
Vital Signs:
Vital Signs
Temp Pulse Resp BP Pulse Ox
97.6 F 65 16 110/63 93
05/27/23 07:34 05/27/23 07:34 05/27/23 07:34 05/27/23 07:34 05/27/23 07:34
I&O
05/26/23 05/27/23 05/28/23
06:59 06:59 06:59
Intake Total 1020 / 1020 1040 / 1040
Balance 1020 / 1020 1040 / 1040
[2023-05-27] MEDS: NEURONTIN 300 MG PO (12:11)
[2023-05-27 12:12] LABS: Glucose - Point of Care 103 mg/dl (70-99)
[2023-05-27] MEDS: ProAmatine 5 MG PO ×3 (12:12→17:26)
[2023-05-27 15:04] VITALS: BP 108/56; O2SAT 96
[2023-05-27 15:14] VITALS: BP 108/56
[2023-05-27 15:50] VITALS: BP 96/49
--- NOTE | 2023-05-27 15:59 | CM ---
IMM signed and placed on chart. Spoke with the patient and spouse at the bedside. Reviewed facilities will to take. Will consider [facility] if able to transport to [facility]. Updated clinicals sent via [facility]. [place] liaison
Linda will review for possible bed availability on Tuesday. CM continues to be available to patient/family and is monitoring medical plan for needs at discharge.
Plan: Discharge to SNF/rehab when facility found able to accommodate patient.
[2023-05-27 16:56] LABS: Glucose - Point of Care 179 mg/dl (70-99)
[2023-05-27] MEDS: HEPARIN 5000 UNITS SC (17:26)
[2023-05-27] MEDS: NOVOLOG FLEXPEN-HIGH RESISTANCE 2 UNITS SC (17:30)
[2023-05-27] MEDS: SENOKOT-S 2 TABLET PO (21:06)
[2023-05-27] MEDS: MIRALAX 17 GRAMS PO (21:07)
[2023-05-27 21:39] LABS: Glucose - Point of Care 125 mg/dl (70-99)
[2023-05-27] MEDS: DULCOLAX 10 MG PO (22:38)
[2023-05-27] MEDS: LANTUS 0.200000000000000011 UNITS SC (22:38)
[2023-05-27] MEDS: LIPITOR 80 MG PO (22:38)
[2023-05-27 23:26] VITALS: BP 104/51
[2023-05-28] MEDS: HEPARIN 5000 UNITS SC ×3 (00:19→17:07)
[2023-05-28 06:00] VITALS: BMI 31.2
[2023-05-28] MEDS: SYNTHROID 25 MCG PO (06:27)
[2023-05-28 07:10] VITALS: BP 107/53
--- NOTE | 2023-05-28 07:54 | W.PN.HOSP.TC ---
Today's Communication/Plan
-
Awaiting disposition to excepting facility that will take hemodialysis for further rehab
Hemodialysis dialysis again scheduled for Tuesday
Obtain BMP Tuesday morning
Assessment / Plan
Assessment / Plan
Physical exam:
General: Awake and alert, not in distress
HEENT: anicteric,pink conjunctivae
Respiratory: normal chest wall movement, normal respiratory effort, no respiratory distress,
Heart: S1, S2 regular, normal rate, no added sound.
Gastrointestinal:soft, nontender, no guarding
Extremities: Dressing on the left below-knee amputation stump, no active discharge, some black eschar at the tip of the right big toe, no evidence of infection
psych: calm
Streptococcus agalactiae bacteremia-suspect from left foot. Appt ID input. abx stopped. would check new bcx to ensure clearance
Chronic left heel wound- podiatry following. Patient has been following podiatry for long time. Last debridement a week ago. He states he has been dealing with for almost a year now.
-s/p left lower extremity below the knee amputation
-MRI foot shows OM Calcaneus and talus bone with small amount of devitalized soft tissue at the margin of the wound inferior to calcaneus
-Status post below-knee amputation 05/17
-Vascular surgery and podiatry appreciated
ID stopped abx
-STORE RECEIVER pump dc'ed by me 05/22; now on Iv prn dialudid and oxycodone
-cw laxatives
Dry heaves/nausea at times
-AXR with moderate fecal burden
-Started on aggressive bowel regimen/had large bowel movement this morning May 27
ESRD on HD
-Usual dialysis days are [facility]We[facility], however patient did not received HD today May 12
-cw HD support
Acute hypoxic respiratory insufficiency
Pt on O2;cxr �Diffusely increased interstitial markings which i suspect clinically interstitial edema
Resolved with HD
wean o2 as tolerated
Hypokalemia
improved
Hypocalcemia
improved
Hyponatremia
Managed with dialysis
ASCVD s/p CABG and LLE Stent
-Continue aspirin
Chronic HFrEF
-Monitor Is&Os and Daily Weights
Hyperlipidemia
-Continue atorvastatin
Diabetes Mellitus, Type II
- Poorly controlled . Hemoglobin A1c 9.3. Patient states that he lost his benefits for continuous glucometer so is not checking blood sugars at home. He states that he eats much less than what he eats at home but still sugars are high.
-dec lantus to 20units. Decrease the dose of Lantus. Continue with the sliding scale. POC 130
stage 2 lower back and sacral pressure decub ulcer
Diabetic Neuropathy
-Continue gabapentin
Hypothyroidism
-Continue Synthroid
Mild anemia
Suspect anemia chronic disease
DVT proph: SC Heparin
Ultrasound of the left leg shows no evidence of DVT
Code Status: Full Code
PT/OT rec SNF. awaiting placement. Difficult disposition due to HD requirement. Case management aware
Anticipated Discharge: Within 24 hours
Subjective/Interval History
-
Date of Service: May 28, 2023
Finally had a very large bowel movement no other issues
Objective Data
-
Vital Signs:
Vital Signs
Temp Pulse Resp BP Pulse Ox
98.4 F 73 18 104/51 94
05/27/23 23:26 05/27/23 23:26 05/27/23 23:26 05/27/23 23:26 05/27/23 23:26
I&O
05/27/23 05/28/23 05/29/23
06:59 06:59 06:59
Intake Total 1040 / 1040 1140 / 1140
Balance 1040 / 1040 1140 / 1140
Review of Systems
-
All other systems: Not reviewed unless documented
Physical Exam
-
General: Well Developed
HEENT: Normocephalic
Respiratory: Clear to Auscultation
Cardiac: Regular Rhythm
GI: Soft and Nontender
Musculoskeletal: Other (Left below-knee amputation)
Data Reviewed
-
Total Time Spent with Patient (in minutes): 56
Labs: Labs Reviewed by me
[2023-05-28 07:59] LABS: Glucose - Point of Care 116 mg/dl (70-99)
[2023-05-28] MEDS: NOVOLOG FLEXPEN-HIGH RESISTANCE 1 UNITS SC (08:16)
[2023-05-28] MEDS: ASPIR LOW (ENTERIC COATED) 81 MG PO (08:16)
[2023-05-28] MEDS: ProAmatine 5 MG PO ×3 (08:16→17:08)
[2023-05-28] MEDS: COREG PO (08:19)
[2023-05-28] MEDS: MIRALAX PO ×2 (08:19→20:46)
[2023-05-28] MEDS: HYDROPHOR 1 APPLIC TOPICAL (08:19)
[2023-05-28] MEDS: SENOKOT-S PO ×2 (08:20→20:46)
[2023-05-28 12:13] LABS: Glucose - Point of Care 201 mg/dl (70-99)
[2023-05-28] MEDS: NOVOLOG FLEXPEN-HIGH RESISTANCE 4 UNITS SC (12:17)
[2023-05-28] MEDS: NEURONTIN 300 MG PO (12:17)
[2023-05-28 15:12] VITALS: BP 117/58
--- NOTE | 2023-05-28 17:14 | W.PN.NEPH.PH ---
Today's Communication / Plan
-
HD tuesday
Assessment/Plan
-
Impression;
Fevers/Sepsis/gram Positive bacteremia
Status post left lower extremity BKA 05/18/2023
End-stage renal disease Tuesday
Left heel wound infection
Diabetes
History of CABG and left lower extremities to
History of congestive heart
Diabetic neuropathy
Hypothyroid
Chronic Hypotension
Anemia
Ischemic cardiomyopathy EF 30%
Pulmonary hypertension
Left upper extremity AV
Plan:
-HD Tuesday
-For rehab placement
-Midodrine has been utilized for hypotension and pre HD
-Left upper extremity AV fistula with good function
-Appropriate dietary and fluid restrictions to be ordered for ESRD
-monitor k and gabby-seem to stabilize
-
-
Date of Service: May 28, 2023
CC / HPI / ROS
-
Chief Complaint:
End-stage renal disease
History of Present Illness:
End-stage renal disease on Tuesday schedule
tolerated HD yesterday
Hemodynamically labile on midodrine support
Status post left BKA on date 05/18/2023
K and calcium better
Review of Systems:
No chest pain or shortness of breath
Postoperative surgical pain controlled
Labs
-
Labs:
WBC 7.9 10^3/uL (4.8-10.8) 05/26/23 04:
RBC 3.31 10^6/uL (4.70-6.10) L 05/26/23 04:
Hgb 9.6 g/dL (13.0-18.0) L 05/27/23 08:00
Hct 29.1 % (39.0-52.0) L 05/27/23 08:00
Plt Count 200 10^3/uL (130-400) 05/26/23 04:27
Sodium 131 mmol/L (135-145) L 05/27/23 08:00
Potassium 4.3 mmol/L (3.5-5.1) 05/27/23 08:00
Chloride 92 mmol/L (98-107) L 05/27/23 08:00
Carbon Dioxide 30 mmol/L (22-30) 05/27/23 08:00
BUN 30 mg/dl (9-20) H 05/26/23 04:27
Creatinine 5.2 mg/dL (0.7-1.3) H* 05/26/23 04:27
eGFR 11.77 05/26/23 04:27
Glucose 136 mg/dl (70-99) H 05/26/23 04:27
Calcium 8.1 mg/dl (8.4-10.2) L 05/26/23 04:27
Albumin 2.1 g/dl (3.5-5.0) L 05/22/23 09:28
Physical Exam
-
Vital Signs:
Vital Signs
Temp Pulse Resp BP Pulse Ox
98.0 F 68 16 117/58 98
05/28/23 15:12 05/28/23 15:12 05/28/23 15:12 05/28/23 15:12 05/28/23 15:12
Cardiovascular:: Regular rate and rhythm
Respiratory:: Bilateral: CTA
Lung Excursion:: Normal
Abdomen:: Nontender and Soft
Extremity Edema:: +1: Right:
Ritchie Catheter: No
Other Findings::
left BKA
[2023-05-28] MEDS: NOVOLOG FLEXPEN-HIGH RESISTANCE 2 UNITS SC (17:15)
[2023-05-28 17:17] LABS: Glucose - Point of Care 154 mg/dl (70-99)
[2023-05-28] MEDS: COREG 3.125 MG PO (20:46)
[2023-05-28] MEDS: TYLENOL 1000 MG PO (20:46)
[2023-05-28] MEDS: DULCOLAX PO (20:46)
[2023-05-28] MEDS: LIPITOR 80 MG PO (20:46)
[2023-05-28 21:13] LABS: Glucose - Point of Care 147 mg/dl (70-99)
[2023-05-28] MEDS: LANTUS 0.200000000000000011 UNITS SC (22:31)
[2023-05-28 23:20] VITALS: BP 104/54
[2023-05-29] MEDS: HEPARIN 5000 UNITS SC ×3 (00:27→18:11)
[2023-05-29 06:00] VITALS: BMI 31.6
[2023-05-29] MEDS: SYNTHROID 25 MCG PO (06:15)
[2023-05-29 07:43] VITALS: BP 111/58
--- NOTE | 2023-05-29 08:45 | W.PN.HOSP.TC ---
Today's Communication/Plan
-
Labs for a.m. hemodialysis
Still awaiting disposition to a rehab facility that will accept hemodialysis
Assessment / Plan
Assessment / Plan
Physical exam:
General: Awake and alert, not in distress
HEENT: anicteric,pink conjunctivae
Respiratory: normal chest wall movement, normal respiratory effort, no respiratory distress,
Heart: S1, S2 regular, normal rate, no added sound.
Gastrointestinal:soft, nontender, no guarding
Extremities: Dressing on the left below-knee amputation stump, no active discharge, some black eschar at the tip of the right big toe, no evidence of infection
psych: calm
Streptococcus agalactiae bacteremia-suspect from left foot. Appt ID input. abx stopped. would check new bcx to ensure clearance
Chronic left heel wound- podiatry following. Patient has been following podiatry for long time. Last debridement a week ago. He states he has been dealing with for almost a year now.
-s/p left lower extremity below the knee amputation
-MRI foot shows OM Calcaneus and talus bone with small amount of devitalized soft tissue at the margin of the wound inferior to calcaneus
-Status post below-knee amputation 05/17
-Vascular surgery and podiatry appreciated
ID stopped abx
-FLAG SIGNALER pump dc'ed by me 05/22; now on Iv prn dialudid and oxycodone
-cw laxatives
Dry heaves/nausea at times
-AXR with moderate fecal burden
-Started on aggressive bowel regimen/had large bowel movement this morning May 27
ESRD on HD
-Usual dialysis days are MoWe[facility], however patient did not received HD today May 12
-cw HD support
Acute hypoxic respiratory insufficiency
Pt on O2;cxr �Diffusely increased interstitial markings which i suspect clinically interstitial edema
Resolved with HD
wean o2 as tolerated
Hypokalemia
improved
Hypocalcemia
improved
Hyponatremia
Managed with dialysis
ASCVD s/p CABG and LLE Stent
-Continue aspirin
Chronic HFrEF
-Monitor Is&Os and Daily Weights
Hyperlipidemia
-Continue atorvastatin
Diabetes Mellitus, Type II
- Poorly controlled . Hemoglobin A1c 9.3. Patient states that he lost his benefits for continuous glucometer so is not checking blood sugars at home. He states that he eats much less than what he eats at home but still sugars are high.
-dec lantus to 20units. Decrease the dose of Lantus. Continue with the sliding scale. POC 130
stage 2 lower back and sacral pressure decub ulcer
Diabetic Neuropathy
-Continue gabapentin
Hypothyroidism
-Continue Synthroid
Mild anemia
Suspect anemia chronic disease
DVT proph: SC Heparin
Ultrasound of the left leg shows no evidence of DVT
Code Status: Full Code
PT/OT rec SNF. awaiting placement. Difficult disposition due to HD requirement. Case management aware
Anticipated Discharge: Within 24 hours
Subjective/Interval History
-
Date of Service: May 29, 2023
No further issues with either diarrhea or constipation denies abdominal distention or tenderness or pain. Tolerating diet. Still frustrated over the prospects of obtaining a rehab they will except hemodialysis.
Objective Data
-
Vital Signs:
Vital Signs
Temp Pulse Resp BP Pulse Ox
97.8 F 64 16 111/58 96
05/29/23 07:43 05/29/23 07:43 05/29/23 07:43 05/29/23 07:43 05/29/23 07:43
I&O
05/28/23 05/29/23 05/30/23
06:59 06:59 06:59
Intake Total 1140 / 1140 1440 / 1440
Balance 1140 / 1140 1440 / 1440
Review of Systems
-
History Source: Patient
All other systems: Not reviewed unless documented
Constitutional: Reports No Symptoms
Respiratory: Reports No Symptoms
Physical Exam
-
General: Well Developed
HEENT: Normocephalic
Respiratory: Clear to Auscultation
Cardiac: Regular Rhythm
GI: Soft and Nontender
Genito-urinary: No Costovertebral Tender
Musculoskeletal: Edema, Left Lower Extrem (BKA)
Data Reviewed
-
Total Time Spent with Patient (in minutes): 45
Labs: Labs Reviewed by me (Blood sugar 147)
[2023-05-29 08:49] LABS: Glucose - Point of Care 180 mg/dl (70-99)
[2023-05-29] MEDS: SENOKOT-S PO ×3 (09:09→21:46)
[2023-05-29] MEDS: NOVOLOG FLEXPEN-HIGH RESISTANCE 2 UNITS SC ×2 (09:10→18:11)
[2023-05-29] MEDS: ASPIR LOW (ENTERIC COATED) 81 MG PO (09:11)
[2023-05-29] MEDS: COREG PO ×2 (09:13→21:50)
[2023-05-29] MEDS: MIRALAX PO ×2 (09:14→21:46)
[2023-05-29] MEDS: ProAmatine 5 MG PO ×3 (09:15→18:10)
[2023-05-29] MEDS: HYDROPHOR 1 APPLIC TOPICAL (09:26)
[2023-05-29 11:43] VITALS: BP 109/60
[2023-05-29 12:22] LABS: Glucose - Point of Care 147 mg/dl (70-99)
[2023-05-29] MEDS: NOVOLOG FLEXPEN-HIGH RESISTANCE 1 UNITS SC (13:30)
[2023-05-29] MEDS: NEURONTIN 300 MG PO (13:31)
--- NOTE | 2023-05-29 13:38 | W.PN.NEPH.PH ---
Today's Communication / Plan
-
HD tomorrow
Assessment/Plan
-
Impression;
Fevers/Sepsis/gram Positive bacteremia
Status post left lower extremity BKA 05/18/2023
End-stage renal disease Tuesday
Left heel wound infection
Diabetes
History of CABG and left lower extremities to
History of congestive heart
Diabetic neuropathy
Hypothyroid
Chronic Hypotension
Anemia
Ischemic cardiomyopathy EF 30%
Pulmonary hypertension
Left upper extremity AV
Plan:
-HD Tuesday
-Midodrine has been utilized for hypotension and pre HD
-Left upper extremity AV fistula with good function
-Appropriate dietary and fluid restrictions to be ordered for ESRD
pending placement
-
-
Date of Service: May 29, 2023
CC / HPI / ROS
-
Chief Complaint:
End-stage renal disease
History of Present Illness:
End-stage renal disease on Tuesday schedule
tolerated HD yesterday
Hemodynamically labile on midodrine support
Status post left BKA on date 05/18/2023
K and calcium better
Review of Systems:
No chest pain or shortness of breath
no n/v
Labs
-
Labs:
WBC 7.9 10^3/uL (4.8-10.8) 05/26/23 04:27
RBC 3.31 10^6/uL (4.70-6.10) L 05/26/23 04:27
Hgb 9.6 g/dL (13.0-18.0) L 05/27/23 08:00
Hct 29.1 % (39.0-52.0) L 05/27/23 08:00
Plt Count 200 10^3/uL (130-400) 05/26/23 04:27
Sodium 131 mmol/L (135-145) L 05/27/23 08:00
Potassium 4.3 mmol/L (3.5-5.1) 05/27/23 08:00
Chloride 92 mmol/L (98-107) L 05/27/23 08:00
Carbon Dioxide 30 mmol/L (22-30) 05/27/23 08:00
BUN 30 mg/dl (9-20) H 05/26/23 04:27
Creatinine 5.2 mg/dL (0.7-1.3) H* 05/26/23 04:27
eGFR 11.77 05/26/23 04:27
Glucose 136 mg/dl (70-99) H 05/26/23 04:27
Calcium 8.1 mg/dl (8.4-10.2) L 05/26/23 04:27
Albumin 2.1 g/dl (3.5-5.0) L 05/22/23 09:28
Physical Exam
-
Vital Signs:
Vital Signs
Temp Pulse Resp BP Pulse Ox
97.9 F 65 17 106/59 98
05/29/23 11:43 05/29/23 11:43 05/29/23 11:43 05/29/23 13:32 05/29/23 11:43
Cardiovascular:: Regular rate and rhythm
Respiratory:: Bilateral: CTA
Lung Excursion:: Normal
Abdomen:: Nontender and Soft
Extremity Edema:: +1: Right:
Ritchie Catheter: No
Other Findings::
left BKA
[2023-05-29 15:00] VITALS: BP 108/61
[2023-05-29 17:31] LABS: Glucose - Point of Care 159 mg/dl (70-99)
[2023-05-29 21:43] LABS: Glucose - Point of Care 200 mg/dl (70-99)
[2023-05-29] MEDS: TYLENOL 1000 MG PO (21:45)
[2023-05-29] MEDS: DULCOLAX PO (21:46)
[2023-05-29] MEDS: LANTUS 0.200000000000000011 UNITS SC (21:47)
[2023-05-29] MEDS: LIPITOR 80 MG PO (21:47)
[2023-05-29 23:16] VITALS: BP 105/60
[2023-05-30] MEDS: HEPARIN SC ×2 (00:10→07:27)
[2023-05-30 06:00] VITALS: BMI 31.7
[2023-05-30] MEDS: SYNTHROID 25 MCG PO (06:23)
[2023-05-30 07:11] VITALS: BP 101/52
[2023-05-30 07:33] LABS: Glucose - Point of Care 156 mg/dl (70-99)
[2023-05-30] MEDS: ProAmatine 5 MG PO ×2 (07:42→17:57)
[2023-05-30] MEDS: NOVOLOG FLEXPEN-HIGH RESISTANCE SC ×2 (07:45→11:50)
[2023-05-30] MEDS: COREG PO ×2 (07:46→22:21)
[2023-05-30] MEDS: ASPIR LOW (ENTERIC COATED) PO (07:47)
[2023-05-30] MEDS: MIRALAX PO ×2 (07:47→22:21)
[2023-05-30] MEDS: SENOKOT-S PO ×2 (07:47→22:21)
[2023-05-30] MEDS: HYDROPHOR TOPICAL (07:47)
[2023-05-30 08:26] LABS: Blood Urea Nitrogen 57 mg/dl (9-20); Calcium 8.4 mg/dl (8.4-10.2); Carbon Dioxide 25 mmol/L (22-30); Chloride 95 mmol/L (98-107); Estimated Creatinine Clearance 12 ml/min; Glucose 151 mg/dl (70-99); Potassium 3.8 mmol/L (3.5-5.1); Sodium 131 mmol/L (135-145); eGFR 7.46
[2023-05-30] MEDS: RETACRIT 6000 UNITS IV (08:56)
[2023-05-30 11:43] LABS: Glucose - Point of Care 111 mg/dl (70-99)
--- NOTE | 2023-05-30 11:55 | CM ---
Reviewed the chart notes. Call placed to Linda admissions liaison for [facility]. Linda reached out to [place] to see they could accommodate the patient. They have not beds at this point and do not anticipate any in the near future.
Linda to reach out to [facility]. Patient refused [facility] or [facility], which were willing to accept him and transport to his [place] HD facility . Manuela Mcnally asking for additional Hep B Antibody and Hep B Surface testing. [facility]'
policy if yearly if the patient tests positive for antibodies. Uli uses [facility] and they are requesting more recent (within 30 days). TT to attending to request labs. CM continues to be available to patient/family and is monitoring medical
plan for needs at discharge.
Plan: Discharge to a SNF/rehab once bed found who can accommodate a HD patient.
--- NOTE | 2023-05-30 12:10 | W.PN.HOSP.TC ---
Today's Communication/Plan
-
Monitor vitals
see plan
HD per nephrology
Pending placement
Assessment / Plan
Assessment / Plan
Physical exam:
General: Awake and alert, not in distress
HEENT: anicteric,pink conjunctivae
Respiratory: normal chest wall movement, normal respiratory effort, no respiratory distress,
Heart: S1, S2 regular, normal rate, no added sound.
Gastrointestinal:soft, nontender, no guarding
Extremities: Dressing on the left below-knee amputation stump, no active discharge, some black eschar at the tip of the right big toe, no evidence of infection
psych: calm
Streptococcus agalactiae bacteremia-suspect from left foot. Appt ID input. abx stopped. new bcx to ensure clearance neg
Chronic left heel wound- podiatry following. Patient has been following podiatry for long time. Last debridement a week ago. He states he has been dealing with for almost a year now.
-s/p left lower extremity below the knee amputation
-MRI foot shows OM Calcaneus and talus bone with small amount of devitalized soft tissue at the margin of the wound inferior to calcaneus
-Status post below-knee amputation 05/17
-Vascular surgery and podiatry appreciated
ID stopped abx
-CHIROPRACTIC TEACHER pump dc'ed by me 05/22; now on Iv prn dialudid and oxycodone
-cw laxatives
Dry heaves/nausea at times
-AXR with moderate fecal burden
cw laxatives
ESRD on HD
-Usual dialysis days are MoWeFr, however patient did not received HD today May 12
-cw HD support
Acute hypoxic respiratory insufficiency
Pt on O2;cxr �Diffusely increased interstitial markings which i suspect clinically interstitial edema
Resolved with HD
wean o2 as tolerated
Hypokalemia
improved
Hypocalcemia
improved
Hyponatremia
Managed with dialysis
ASCVD s/p CABG and LLE Stent
-Continue aspirin
Chronic HFrEF
-Monitor Is&Os and Daily Weights
Hyperlipidemia
-Continue atorvastatin
Diabetes Mellitus, Type II
- Poorly controlled . Hemoglobin A1c 9.3. Patient states that he lost his benefits for continuous glucometer so is not checking blood sugars at home. He states that he eats much less than what he eats at home but still sugars are high.
-dec lantus to 20units. Decrease the dose of Lantus. Continue with the sliding scale.
stage 2 lower back and sacral pressure decub ulcer
Diabetic Neuropathy
-Continue gabapentin
Hypothyroidism
-Continue Synthroid
Mild anemia
Suspect anemia chronic disease
DVT proph: SC Heparin
Ultrasound of the left leg shows no evidence of DVT
Code Status: Full Code
PT/OT rec SNF. awaiting placement. Difficult disposition due to HD requirement. Case management aware
Anticipated Discharge: Within 24 hours
Subjective/Interval History
-
Date of Service: May 30, 2023
Denies nausea
Objective Data
-
Labs:
Laboratory Results
05/30/23
07:50
Sodium 131 L
Potassium 3.8
Chloride 95 L
Carbon Dioxide 25
BUN 57 H
Creatinine 7.6 H*
Glucose 151 H
Calcium 8.4
Vital Signs:
Vital Signs
Temp Pulse Resp BP Pulse Ox
98.4 F 66 16 107/60 97
05/30/23 07:11 05/30/23 07:46 05/30/23 07:11 05/30/23 07:46 05/30/23 07:11
I&O
05/29/23 05/30/23 05/31/23
06:59 06:59 06:59
Intake Total 1440 / 1440 1040 / 1040
Output Total 100 / 100
Balance 1440 / 1440 940 / 940
[2023-05-30 12:45] VITALS: BP 145/71
--- NOTE | 2023-05-30 12:56 | W.PN.NEPH.HD ---
Assessment
-
doing well on HD today
no complaints
Progress Note - Hemodialysis
-
Date of Service: May 30, 2023
Duration: 30 minutes and 3 hours
Potassium Bath: 3
Calcium Bath: 2.5
Opti-Dialyzer: 160
Ultrafiltration: Other
Blood Flow: 400
Dialysate Flow: 600
EPO: 6K
[2023-05-30] MEDS: NEURONTIN 300 MG PO (13:55)
[2023-05-30] MEDS: ProAmatine PO (14:11)
[2023-05-30 15:10] VITALS: BP 103/50
[2023-05-30 17:11] LABS: Glucose - Point of Care 179 mg/dl (70-99)
[2023-05-30] MEDS: HEPARIN 5000 UNITS SC (17:56)
[2023-05-30] MEDS: NOVOLOG FLEXPEN-HIGH RESISTANCE 2 UNITS SC (17:57)
[2023-05-30 18:43] LABS: Hepatitis B Surface Antigen Negative (Negative)
[2023-05-30 19:01] LABS: Hepatitis B Surface Antibody Negative
[2023-05-30 22:04] LABS: Glucose - Point of Care 136 mg/dl (70-99)
[2023-05-30] MEDS: LIPITOR 80 MG PO (22:21)
[2023-05-30] MEDS: LANTUS 0.200000000000000011 UNITS SC (22:22)
[2023-05-30 23:35] VITALS: BP 123/64
[2023-05-31] MEDS: HEPARIN SC ×3 (01:59→15:41)
[2023-05-31 06:00] VITALS: BMI 31.0
[2023-05-31] MEDS: SYNTHROID 25 MCG PO (06:05)
[2023-05-31 06:10] LABS: Blood Urea Nitrogen 41 mg/dl (9-20); Calcium 8.7 mg/dl (8.4-10.2); Carbon Dioxide 28 mmol/L (22-30); Chloride 92 mmol/L (98-107); Estimated Creatinine Clearance 15 ml/min; Glucose 118 mg/dl (70-99); Potassium 3.6 mmol/L (3.5-5.1); Sodium 133 mmol/L (135-145); eGFR 9.91
[2023-05-31 07:10] VITALS: BP 102/55
[2023-05-31 07:25] LABS: Glucose - Point of Care 157 mg/dl (70-99)
[2023-05-31] MEDS: NOVOLOG FLEXPEN-HIGH RESISTANCE 2 UNITS SC ×2 (08:48→12:01)
[2023-05-31] MEDS: HYDROPHOR TOPICAL (08:50)
[2023-05-31] MEDS: MIRALAX PO (08:50)
[2023-05-31] MEDS: SENOKOT-S PO (08:51)
[2023-05-31] MEDS: ProAmatine 5 MG PO ×2 (08:53→12:02)
[2023-05-31] MEDS: COREG PO (08:53)
[2023-05-31] MEDS: ASPIR LOW (ENTERIC COATED) 81 MG PO (08:53)
--- NOTE | 2023-05-31 10:49 | W.PN.HOSP.TC ---
Addendum entered and electronically signed by Kain Park MD 05/31/23 13:19:
Per case repairer, patient accepted to SNF
Discharge today
Time of discharge 38 minutes
Original Note:
Today's Communication/Plan
-
Monitor vital signs and see plan
HD per nephrology
Awaiting placement
cw laxatives
Assessment / Plan
Assessment / Plan
Physical exam:
General: Awake and alert, not in distress
HEENT: anicteric,pink conjunctivae
Respiratory: normal chest wall movement, normal respiratory effort, no respiratory distress,
Heart: S1, S2 regular, normal rate, no added sound.
Gastrointestinal:soft, nontender, no guarding
Extremities: Dressing on the left below-knee amputation stump, no active discharge, some black eschar at the tip of the right big toe, no evidence of infection
psych: calm
Streptococcus agalactiae bacteremia-suspect from left foot. Appt ID input. abx stopped. new bcx to ensure clearance neg
Chronic left heel wound- podiatry following. Patient has been following podiatry for long time. Last debridement a week ago. He states he has been dealing with for almost a year now.
-s/p left lower extremity below the knee amputation
-MRI foot shows OM Calcaneus and talus bone with small amount of devitalized soft tissue at the margin of the wound inferior to calcaneus
-Status post below-knee amputation 05/17
-Vascular surgery and podiatry appreciated
ID stopped abx
-MACHINE SETTER pump dc'ed by me 05/22; now on Iv prn dialudid and oxycodone
-cw laxatives
Dry heaves/nausea at times
-AXR with moderate fecal burden
cw laxatives
ESRD on HD
-Usual dialysis days are MoWeFr, however patient did not received HD today May 12
-cw HD support
Acute hypoxic respiratory insufficiency
Pt on O2;cxr �Diffusely increased interstitial markings which i suspect clinically interstitial edema
Resolved with HD
wean o2 as tolerated
Hypokalemia
improved
Hypocalcemia
improved
Hyponatremia
Managed with dialysis
ASCVD s/p CABG and LLE Stent
-Continue aspirin
Chronic HFrEF
-Monitor Is&Os and Daily Weights
Hyperlipidemia
-Continue atorvastatin
Diabetes Mellitus, Type II
- Poorly controlled . Hemoglobin A1c 9.3. Patient states that he lost his benefits for continuous glucometer so is not checking blood sugars at home. He states that he eats much less than what he eats at home but still sugars are high.
-dec lantus to 20units. Decrease the dose of Lantus. Continue with the sliding scale.
stage 2 lower back and sacral pressure decub ulcer
Diabetic Neuropathy
-Continue gabapentin
Hypothyroidism
-Continue Synthroid
Mild anemia
Suspect anemia chronic disease
DVT proph: SC Heparin
Ultrasound of the left leg shows no evidence of DVT
Code Status: Full Code
PT/OT rec SNF. awaiting placement. Difficult disposition due to HD requirement. Case management aware
Anticipated Discharge: Within 24 hours
Subjective/Interval History
-
Date of Service: May 31, 2023
Denies nausea
Objective Data
-
Labs:
Laboratory Results
05/31/23
04:03
Sodium 133 L
Potassium 3.6
Chloride 92 L
Carbon Dioxide 28
BUN 41 H
Creatinine 6.0 H*
Glucose 118 H
Calcium 8.7
Vital Signs:
Vital Signs
Temp Pulse Resp BP Pulse Ox
98.0 F 71 16 102/77 98
05/31/23 07:10 05/31/23 07:10 05/31/23 07:10 05/31/23 08:53 05/31/23 10:34
I&O
05/30/23 05/31/23 06/01/23
06:59 06:59 06:59
Intake Total 1040 / 1040 1080 / 1080
Output Total 100 / 100 100 / 100
Balance 940 / 940 980 / 980
[2023-05-31 11:40] LABS: Glucose - Point of Care 178 mg/dl (70-99)
[2023-05-31] MEDS: NEURONTIN 300 MG PO (12:01)
[2023-05-31 12:07] VITALS: BP 112/52
--- NOTE | 2023-05-31 13:09 | CM ---
Addendum entered by Sarah Lynch RN 05/31/23 13:53:
Medical necessity and transport forms on chart.
Original Note:
Reviewed the chart notes and spoke with the patient at the bedside. IMM signed and placed on chart. Patient has been accepted at [facility] with Lashay ALCOCER.
Plan: Discharge [facility].
Call report to: [phone]
Fax report to: [phone]
--- NOTE | 2023-05-31 13:20 | W.DCSUMMARY ---
Discharge Summary
Discharge Data
Date of Admission: 05/13/23
Date of Discharge: 05/31/23
-
Pending Results: No
Hospital Course
63-year-old male with past medical history of ESRD on hemodialysis, coronary artery disease status post CABG,PAD,CHF,Hyperlipidemia,Diabetes mellitus,Diabetic neuropathy,Hypothyroidism,Anemia of chronic disease, chronic left heel wound came to the
hospital with Streptococcus bacteremia which was likely thought was secondary to his left foot wound. Patient was initially started on antibiotics and was seen by infectious disease throughout hospitalization. Patient was initially seen by
podiatry and had an MRI which showed osteomyelitis. Patient was then seen by vascular surgery and was taken for below-knee amputation on 05/17. Subsequently antibiotics was stopped by infectious disease. Further blood cultures were negative. On
this hospitalization patient also had acute hypoxic respiratory sufficiency which over time improved with dialysis. He also had multiple periods of hypoglycemia for which she was Lantus dose was decreased. Due to his hypoglycemia his mealtime
insulin was held on discharge. Patient was seen by physical therapy recommended SNF. His hospital course was prolonged due to inability to find SNF facility with hemodialysis. Eventually patient was accepted to a SNF and was subsequently
discharged with instructions to follow-up with all his physicians outpatient.
Discharge Plan
-
Patient Disposition: Snf/SNF
Discharge Diagnosis/Procedures: Streptococcus agalacticae bacteremia-suspect from left foot
Chronic osteomyelitis of the left calcaneus status post left lower extremity amputation
End-stage renal disease on hemodialysis
Hypoglycemia
Diet: Diabetic, Carb Controlled
Activity: As tolerated
Driving Restrictions: Not until seen by your Dr
Bathing Restrictions: None
Activity Restrictions/Additional Instructions:
Wound Care Instructions
Sacral/buttocks-clean with saline, no sting barrier wipe and protective silicone border foam, change q 3 days and prn loosened dressing (cut notch at distal silicone border to avoid anal area). If foam ineffective, apply barrier ointment bid
instead.
R leg/foot: clean with saline, adaptic to open wounds followed by silicone foam change q other day and prn soilage.
skin prep and silicone foam to dorsal foot and great toe.
Soft heel relief/Fiber filled boot (i.e. TruVue lite boot) RLE as tolerated; alternate with pillow/s to off load R heel while boot off.
Kee to L BKA stump, re-wrap daily. L BKA stump protector.
Mineral oil to dry skin on legs daily
Pressure redistributing chair cushion (i.e. Air chair cushion).
Tubigrip to R leg daily knee high
Follow up with Vascular Dr. Ritchie.
Referrals:
Larry Hall DPM [Active] -
Syl Henry DO [Family Provider] - in less than 1 week
Kasey Mckeon CRNP [Specified Professional Personl] - 06/02/23 9:45 am
Prescriptions:
New
sennosides-docusate sodium [Stool Softener-Stimulant Laxat] 8.6-50 mg Tablet
2 tab PO BID Qty: 0 0RF
midodrine 5 mg Tablet
5 mg PO Q4HPRN PRN (Reason: sbp <100) Qty: 0 0RF
white petrolatum [Hydrophor] 42 % Ointment
1 applic topical DAILY Qty: 0 0RF
polyethylene glycol 3350 [HealthyLax] 17 gram Powder In Packet
17 g PO BID Qty: 0 0RF
Insulin Glargine Lantus [Lantus] 20 UNITS
Subcutaneous Insulin Syringe [Syringe-Insulin] 0 UNIT
As Directed mls/hr SC HS
Ordered By: Kain Park MD
Last Taken: 05/30/23 22:22 0.2 mls
Continued
atorvastatin 80 MG tablet
80 mg PO HS
aspirin 81 MG tablet,delayed release (DR/EC)
81 mg PO DAILY
carvedilol 3.125 mg Tablet
3.125 mg PO BID
levothyroxine 25 MCG tablet
25 mcg PO DAILY AT 0700
midodrine 5 mg Tablet
5 mg PO TID@0800,1300,1800 30 Days Qty: 90 0RF
acetaminophen 500 mg Tablet
1,000 mg PO Q6H PRN (Reason: mild pain)
gabapentin 300 mg capsule
300 mg PO NOON
Discontinued
insulin glargine [Lantus Solostar U-100 Insulin] 100 unit/mL (3 mL) Insulin Pen
80 unit SC HS
insulin aspart U-100 [Novolog FlexPen U-100 Insulin] 100 unit/mL (3 mL) insulin pen
20 unit SC AC
Discharge Orders:
Discharge Patient (As Directed); Ordered 05/31/23
Ordered By: Kain Park
Discharge Date and Time
Discharge Date/Time: 05/31/23 17:52
Print Language: GUATEMALAN
[2023-05-31 13:50] VITALS: BP 112/52; PULSE 70; O2SAT 94
--- NOTE | 2023-05-31 14:46 | PTCARENOTE ---
report called to [facility] for this patient that is leaving via Ambulance this afternoon at 1630. number used to call report was [phone]. pt belongings are ready at bedside and patient is aware of discharge.
[2023-05-31 15:10] VITALS: BP 119/73
== END 2023-05-31 17:52 | DRG 853 ==
LOC: 2 NORTH 21:19
PROVIDERS: Internal Medicine; Nurse Practitioner; Nurse Practitioner Acute Care; Physician Assistant Medical; Specialist; Student in an Organized Health Care Education/Training Program; ADMITTING PHYSICIAN Hospitalist; ATTENDING PHYSICIAN Internal Medicine; CONSULT PHYSICIAN Specialist; CONSULT PHYSICIAN Student in an Organized Health Care Education/Training Program; CONSULT PHYSICIAN Surgery Vascular Surgery; EMERGENCY PHYSICIAN Emergency Medicine; FAMILY PHYSICIAN Student in an Organized Health Care Education/Training Program
PROC: 5A1D70Z Performance of Urinary Filtration, Intermittent, Less than 6 Hours Per Day (ICD-10-PCS; 2023-05-14)
PROC: 0Y6J0Z2 Detachment at Left Lower Leg, Mid, Open Approach (ICD-10-PCS; 2023-05-18)
DX: A40.1 Sepsis due to streptococcus, group B (principal); N18.6 End stage renal disease; I13.2 Hypertensive heart and chronic kidney disease with heart failure and with stage 5 chronic kidney disease, or end stage renal disease; I50.22 Chronic systolic (congestive) heart failure; L97.429 Non-pressure chronic ulcer of left heel and midfoot with unspecified severity; M86.672 Other chronic osteomyelitis, left ankle and foot; E87.1 Hypo-osmolality and hyponatremia; E11.69 Type 2 diabetes mellitus with other specified complication; E11.22 Type 2 diabetes mellitus with diabetic chronic kidney disease; E78.00 Pure hypercholesterolemia, unspecified; E11.621 Type 2 diabetes mellitus with foot ulcer; E11.649 Type 2 diabetes mellitus with hypoglycemia without coma; E11.51 Type 2 diabetes mellitus with diabetic peripheral angiopathy without gangrene; I25.10 Atherosclerotic heart disease of native coronary artery without angina pectoris; E11.42 Type 2 diabetes mellitus with diabetic polyneuropathy; G47.30 Sleep apnea, unspecified; E03.9 Hypothyroidism, unspecified; I45.10 Unspecified right bundle-branch block; D69.6 Thrombocytopenia, unspecified; I27.20 Pulmonary hypertension, unspecified; D63.1 Anemia in chronic kidney disease; I95.89 Other hypotension; R15.9 Full incontinence of feces; E66.9 Obesity, unspecified; B96.89 Other specified bacterial agents as the cause of diseases classified elsewhere; E87.6 Hypokalemia; R09.02 Hypoxemia; E83.51 Hypocalcemia; L89.152 Pressure ulcer of sacral region, stage 2; R06.89 Other abnormalities of breathing; I25.5 Ischemic cardiomyopathy; Z99.2 Dependence on renal dialysis; Z95.1 Presence of aortocoronary bypass graft; Z11.52 Encounter for screening for COVID-19; I25.2 Old myocardial infarction; Z68.31 Body mass index [BMI] 31.0-31.9, adult; Z79.82 Long term (current) use of aspirin; Z79.4 Long term (current) use of insulin; Z79.890 Hormone replacement therapy; Z87.891 Personal history of nicotine dependence; Z91.013 Allergy to seafood; Z87.311 Personal history of (healed) other pathological fracture
CPT/HCPCS: 88307; 88311; 27880; 71045; 73630; 73723; 74019; 80048; 80051; 80053; 82040; 82962; 83036; 83605; 83735; 85014; 85018; 85025; 85027; 85610; 85730; 86706; 86850; 86900; 86901; 87040; 87045; 87046; 87070; 87075; 87076; 87077; 87149; 87186; 87205; 87340; 87427; 87502; 87811; 89055; 93005; 93971; 96365; 96367; 97110; 97112; 97163; 97164; 97167; 97530; 97535; 99285; A9575; G0257; P9047; Q5106

== ENCOUNTER → 2023-07-28 09:00 | Outpatient (REF) | payer MEDICARE, OTHER, SELFPAY | LOC: RAD 09:00 | PROVIDERS: ATTENDING PHYSICIAN Registered Nurse; FAMILY PHYSICIAN Student in an Organized Health Care Education/Training Program | DX: I73.9 Peripheral vascular disease, unspecified (principal); M86.672 Other chronic osteomyelitis, left ankle and foot | CPT/HCPCS: 93922; 93925 ==

== ENCOUNTER 2023-08-02 06:06 | Day surgery (SDC) | payer MEDICARE, OTHER, SELFPAY ==
[2023-08-01 17:56] VITALS: BMI 33.5
[2023-08-02] VITALS (13 sets, daily range): BP systolic 102–118; BP diastolic 42–86; BMI 33.6
[2023-08-02] MEDS: PERIDEX 0.12% ORAL RINSE 15 ML PO (06:50)
[2023-08-02] MEDS: BACTROBAN NASAL 1 GRAM NASAL (06:50)
[2023-08-02] MEDS: NSS 500 IV (06:51)
[2023-08-02 07:16] LABS: Glucose - Point of Care 155 mg/dl (70-99)
[2023-08-02 07:23] LABS: Hemoglobin 11.1 g/dL (13.0-18.0); Mean Corp Hgb Conc. 32.6 g/dL (33.0-37.0); Mean Corpuscular Hgb 28.3 pg (27.0-31.0); Mean Corpuscular Volume 86.7 fL (80.0-94.0); Mean Platelet Volume 10.3 fL (7.4-10.4); Platelet Count 145 10^3/uL (130-400); Red Blood Cell Count 3.92 10^6/uL (4.70-6.10); Red Cell Dist. Width 15.9 % (11.5-14.5); White Blood Cell Count 6.6 10^3/uL (4.8-10.8)
[2023-08-02 07:37] LABS: INR 1.27; PT 15.7 Sec (11.4-14.6)
[2023-08-02 07:38] LABS: APTT 33.3 Sec (23.4-35.0)
[2023-08-02 07:43] LABS: Blood Urea Nitrogen 45 mg/dl (9-20); Calcium 8.7 mg/dl (8.4-10.2); Carbon Dioxide 28 mmol/L (22-30); Chloride 97 mmol/L (98-107); Estimated Creatinine Clearance 19 ml/min; Glucose 144 mg/dl (70-99); Potassium 4.5 mmol/L (3.5-5.1); Sodium 137 mmol/L (135-145); eGFR 14.78
--- NOTE | 2023-08-02 08:35 | W.IMMPOSTOP ---
Surgical Immed Post Op Note
-
Primary Surgeon: Dr. Son Ritchie III, MD
Assisting Surgeon: Dr. Enrique Guzman MD, PhD (PGY-1)
Pre-op Diagnosis: Infected wound s/p left BKA
Post-op Diagnosis: Infected wound s/p left BKA
Procedure Performed: Left lower extremity wound debridement
Anesthesia Type: General
Specimen / Cultures: Wound cultures x2
Estimated Blood Loss: 5cc
Complications: None
Operative Findings: Patient was brought to the OR and placed in the supine position. After anesthesia, the patient was prepped and draped in usual sterile fashion. The wound bed was inspected and measured to 15cm x 4cm x 0.5cm. Sharp dissection was
performed to remove areas of necrotic and infected tissue. A tract was noted on the central aspect of the wound. This was probed and tibia was palpated at the base of this tract. The wound bed was irrigated and a wet to dry gauze dressing was placed
in the tract. The remaining wound bed was covered with sterile dressings and wrapped in gauze. At the conclusion of the case, the patient was transferred to the ICU in stable condition.
[2023-08-02 08:49] LABS: Glucose - Point of Care 143 mg/dl (70-99)
--- NOTE | 2023-08-02 10:10 | OR.RPT ---
Operative Report
Operative Report
Date of Operation: 08/02/2023
Pre Op Diagnosis: Poorly healing left below-knee amputation stump
Post Op Diagnosis: Poorly healing left below-knee amputation stump
Procedure: Sharp excisional debridement of left below-knee amputation stump including muscle and fascia (wound dimensions: 15 cm x 4 cm x 0.5 cm)
Surgeon: Son Ritchie III, MD
Resource Engineer: Enrique Guzman MD PhD, PGY1
Anesthesia: General
Complications: None
Estimated Blood Loss: Less than 20 cc
History and Indications for Procedure: 63-year-old male with left below the knee amputation. He fell on the amputation stump approximately 3 weeks ago resulting in a wound dehiscence which was being treated at an outside facility with local wound
care. I brought him to the operating room for sharp excisional debridement of the left below the knee amputation stump.
Procedure in Detail: Josue Harrison was correctly identified and placed supine on the operating table. After adequate induction of anesthesia the left below-knee amputation stump was positioned, prepped and draped in the usual sterile fashion.
Preoperative antibiotics were administered. A timeout procedure was performed with the nursing and anesthesia staff confirming the patient�s identity as well as the nature and laterality of the procedure.
Using a scalpel, scissors and forceps, sharp excisional debridement was performed on the left below-knee amputation wound. Fibrinous exudate and necrotic superficial tissue was sharply debrided from the wound. Additional nonviable muscle and
fascia was sharply debrided using this approach. The tissue was grossly healthy in appearance. No purulence was identified. There was a deeper pocket of dehiscence identified at the midportion of the wound. This area was gently explored and it
did not appear that there was exposed tibia. Deep tissue culture swabs were taken from this location. Debridement continued to back to healthy bleeding tissue throughout. The wound dimensions debrided were 15 cm x 4 cm x 0.5 cm.
The wound was then irrigated with saline. Hemostasis was achieved. Sterile dressings were applied.
The patient tolerated the procedure well and was taken to the PACU in stable condition
Attestation: I was present and responsible for the entire procedure
Signed:
Son Ritchie III, MD
[facility]
[phone] (cell)
[2023-08-02 10:15] LABS: Glucose - Point of Care 152 mg/dl (70-99)
== END 2023-08-02 11:00 | disposition home or self-care (01) ==
LOC: CATH 06:06
PROVIDERS: ATTENDING PHYSICIAN Surgery Vascular Surgery; FAMILY PHYSICIAN Student in an Organized Health Care Education/Training Program
DX: T87.81 Dehiscence of amputation stump (principal); I12.0 Hypertensive chronic kidney disease with stage 5 chronic kidney disease or end stage renal disease; E11.22 Type 2 diabetes mellitus with diabetic chronic kidney disease; N18.6 End stage renal disease; E78.00 Pure hypercholesterolemia, unspecified; G47.33 Obstructive sleep apnea (adult) (pediatric); I25.10 Atherosclerotic heart disease of native coronary artery without angina pectoris; I27.20 Pulmonary hypertension, unspecified; Z87.891 Personal history of nicotine dependence; Z79.82 Long term (current) use of aspirin; Z79.4 Long term (current) use of insulin
CPT/HCPCS: 11043; 11046; 80048; 82962; 85027; 85610; 85730; 87070; 87071; 87075; 87186; 87205

== ENCOUNTER 2023-11-02 06:58 | Day surgery (SDC) | payer MEDICARE, OTHER, SELFPAY ==
[2023-11-02] VITALS (8 sets, daily range): BP systolic 97–122; BP diastolic 46–69; BMI 30.9
[2023-11-02 13:25] LABS: Glucose - Point of Care 114 mg/dl (70-99)
[2023-11-02] MEDS: TYLENOL 1000 MG PO (13:34)
[2023-11-02 14:25] LABS: Carbon Dioxide 31 mmol/L (22-30); Chloride 94 mmol/L (98-107); Potassium 3.6 mmol/L (3.5-5.1); Sodium 138 mmol/L (135-145)
[2023-11-02] MEDS: NSS 500 IV (14:43)
--- NOTE | 2023-11-02 15:39 | W.IMMPOSTOP ---
Surgical Immed Post Op Note
-
Primary Surgeon: ALEIDA Palmer MD
Assisting Surgeon:
Pre-op Diagnosis: nonpressure ulcer of the left lower extremity, surgical wound dehiscence
Post-op Diagnosis: same
Procedure Performed: wound bed prep, split thickness skin graft to left lower extremity
Anesthesia Type: sedation
Specimen / Cultures: none
Estimated Blood Loss: 1 cc
Complications: none
Operative Findings: as expected
--- NOTE | 2023-11-02 15:40 | OR.RPT ---
Operative Report
Operative Report
. Date of surgery: 11/02/2023
Surgeon: ALEIDA Palmer MD
Preoperative diagnosis: Nonpressure ulcer of the left lower extremity, surgical wound dehiscence
Postoperative diagnosis: Same
Procedure:
1. Wound bed prepped for graft recipient site, 9 x 2 cm, left lower extremity
2. Split-thickness skin graft to left lower extremity, 9 x 2 cm
3. Negative pressure dressing application, 9 x 2 cm, left lower extremity
Anesthesia: Sedation
Complications: None
EBL: Minimal
Indications for procedure: Patient is a 63-year-old male with a history of a left below-knee amputation in the setting of diabetes, chronic kidney disease, peripheral vascular disease. He underwent left below-knee amputation and in the immediate
postoperative period suffered a fall resulting in surgical wound dehiscence. The wound was then managed with the VAC was subsequently healed and then he was left with a granulating wound. He was referred to my office for consideration of skin
grafting. Plan was made with donor site left thigh. Risks were reviewed including graft failure, hematoma, infection, scar. He consented accordingly
Procedure in detail: Patient was identified preoperatively and the surgical site was confirmed to be the left lower extremity. All questions were answered consents were confirmed. Patient was taken back to the operating room placed supine on
table. Anesthesia was induced and monitored by the anesthesia provider. The left lower extremity was prepped with Betadine and draped in the usual sterile fashion. Timeout for patient safety was performed was confirmed a right SCD was in place
and preoperative antibiotics had been administered. The procedure began with the injection of a 50-50 mixture 1% lidocaine with epinephrine and half percent Marcaine. This was placed into the left thigh donor site as well as the recipient site of
the distal BKA stump. Wound bed prep was then performed using tangential excision with a 10 blade over the 9 x 2 cm area of the left lower extremity. Healthy bleeding was encountered and all fibrinous exudate was removed. The wound was then
irrigated. A 9 x 2 cm area of the left thigh was then marked out for skin graft donor site. The split-thickness skin graft was harvested with a dermatome using mineral oil. The resultant wound was 13,000 of an inch as expected. The donor site
was dressed with a Tegaderm and the skin graft was sutured into the wound bed with 4-0 chromic. Negative pressure dressing was then applied with antibiotic ointment and Adaptic over the area of 9 x 2 cm. Patient tolerated procedure well, was
performed without complication, all counts were correct at the end the case, he was taken the PACU for further care.
[2023-11-02 16:04] LABS: Glucose - Point of Care 120 mg/dl (70-99)
== END 2023-11-02 17:05 ==
LOC: SDS 06:58
PROVIDERS: Specialist; ATTENDING PHYSICIAN Surgery Plastic and Reconstructive Surgery
DX: T87.81 Dehiscence of amputation stump (principal); L97.829 Non-pressure chronic ulcer of other part of left lower leg with unspecified severity; Y83.5 Amputation of limb(s) as the cause of abnormal reaction of the patient, or of later complication, without mention of misadventure at the time of the procedure
CPT/HCPCS: 15100; 15002; 80051; 82962; 93005; C1776

== ENCOUNTER → 2023-12-16 14:43 | Outpatient (REF) | payer MEDICARE, OTHER, SELFPAY | LOC: RCS 14:43 | PROVIDERS: ATTENDING PHYSICIAN Student in an Organized Health Care Education/Training Program; FAMILY PHYSICIAN Family Medicine | DX: Z01.810 Encounter for preprocedural cardiovascular examination (principal) | CPT/HCPCS: 93306 ==

== ENCOUNTER → 2024-01-03 06:53 | Outpatient (REF) | payer MEDICARE, OTHER, SELFPAY ==
[2024-01-03 07:19] VITALS: BP 111/68; BP_SYST 60
[2024-01-03 08:38] VITALS: BP 112/63
[2024-01-03 08:54] LABS: Body Fluid Polymorphonuclear 14.4 %; Body Fluid WBC 362 /CUMM
[2024-01-03 08:55] LABS: Body Fluid Mononuclear 85.6 %
[2024-01-03 08:58] LABS: Body Fluid Albumin 2.6 g/dl; Body Fluid Glucose 148 mg/dl; Body Fluid LDH 143 U/L
[2024-01-03 09:05] LABS: Body Fluid Second Tech CF
== END ==
LOC: RADI 06:53
PROVIDERS: ATTENDING PHYSICIAN Internal Medicine; FAMILY PHYSICIAN Family Medicine
DX: R18.8 Other ascites (principal)
CPT/HCPCS: 88305; 49083; 82042; 82945; 83615; 87015; 87070; 87205; 88112; 89051

== ENCOUNTER → 2024-01-18 08:50 | Outpatient (REF) | payer MEDICARE, OTHER, SELFPAY ==
[2024-01-18 09:00] VITALS: BP 118/61; BP_SYST 59
[2024-01-18 09:40] VITALS: BP 118/58
[2024-01-18 10:35] LABS: Body Fluid Mononuclear 84.5 %; Body Fluid Polymorphonuclear 15.5 %; Body Fluid WBC 549 /CUMM
[2024-01-18 10:50] LABS: Body Fluid Second Tech SS
== END ==
LOC: RADI 08:50
PROVIDERS: ATTENDING PHYSICIAN Internal Medicine
DX: R18.8 Other ascites (principal)
CPT/HCPCS: 49083; 89051

== ENCOUNTER → 2024-01-27 15:14 | Outpatient (REF) | payer MEDICARE, OTHER, SELFPAY | LOC: DHVS 15:14 | PROVIDERS: ATTENDING PHYSICIAN Registered Nurse | DX: T87.9 Unspecified complications of amputation stump (principal); I73.9 Peripheral vascular disease, unspecified | CPT/HCPCS: 93922; 93925 ==

== ENCOUNTER → 2024-02-03 12:44 | Outpatient (REF) | payer MEDICARE, OTHER, SELFPAY ==
[2024-02-03 13:00] VITALS: BP 105/68; BP_SYST 70
[2024-02-03 13:32] VITALS: BP 112/60
[2024-02-03 14:40] LABS: Body Fluid Mononuclear 81.7 %; Body Fluid Polymorphonuclear 18.3 %; Body Fluid WBC 646 /CUMM
[2024-02-03 14:44] LABS: Body Fluid Second Tech SS
== END ==
LOC: RADI 12:44
PROVIDERS: ATTENDING PHYSICIAN Internal Medicine
DX: R18.8 Other ascites (principal)
CPT/HCPCS: 49083; 89051

== ENCOUNTER → 2024-02-16 09:12 | Outpatient (REF) | payer MEDICARE, OTHER, SELFPAY ==
[2024-02-16 09:35] VITALS: BP 130/58
[2024-02-16 10:05] VITALS: BP 122/63
[2024-02-16 11:33] LABS: Body Fluid Mononuclear 88.8 %; Body Fluid Polymorphonuclear 11.2 %; Body Fluid WBC 557 /CUMM
[2024-02-16 11:40] LABS: Body Fluid Second Tech AMA
== END ==
LOC: RADI 09:12
PROVIDERS: ATTENDING PHYSICIAN Internal Medicine; FAMILY PHYSICIAN Family Medicine
DX: R18.8 Other ascites (principal)
CPT/HCPCS: 49083; 89051

== ENCOUNTER → 2024-02-29 12:53 | Outpatient (REF) | payer MEDICARE, OTHER, SELFPAY ==
[2024-02-29 13:04] VITALS: BP 118/68; BP_SYST 63
[2024-02-29 13:43] VITALS: BP 112/58; BP_SYST 57
[2024-02-29 13:58] VITALS: BP 112/58
[2024-02-29 14:52] LABS: Body Fluid Mononuclear 86.9 %; Body Fluid Polymorphonuclear 13.1 %; Body Fluid WBC 434 /CUMM
[2024-02-29 14:55] LABS: Body Fluid Second Tech EF
== END ==
LOC: RADI 12:53
PROVIDERS: ATTENDING PHYSICIAN Internal Medicine; FAMILY PHYSICIAN Family Medicine
DX: R18.8 Other ascites (principal)
CPT/HCPCS: 49083; 89051

== ENCOUNTER → 2024-03-09 12:56 | Outpatient (REF) | payer MEDICARE, OTHER, SELFPAY ==
[2024-03-09 13:19] VITALS: BP 110/60; BP_SYST 63
[2024-03-09 13:55] VITALS: BP 115/57
[2024-03-09 15:26] LABS: Body Fluid Mononuclear 91.1 %; Body Fluid Polymorphonuclear 8.9 %; Body Fluid WBC 471 /CUMM
[2024-03-09 15:27] LABS: Body Fluid Second Tech FB
== END ==
LOC: RADI 12:56
PROVIDERS: ATTENDING PHYSICIAN Internal Medicine; FAMILY PHYSICIAN Family Medicine
DX: R18.8 Other ascites (principal)
CPT/HCPCS: 49083; 89051

== ENCOUNTER → 2024-03-21 12:54 | Outpatient (REF) | payer MEDICARE, OTHER, SELFPAY ==
[2024-03-21 13:04] VITALS: BP 110/60; BP_SYST 65
[2024-03-21 13:50] VITALS: BP 110/59; BP_SYST 59
[2024-03-21 13:58] VITALS: BP 110/59
[2024-03-21 14:00] LABS: Body Fluid Mononuclear 85.6 %; Body Fluid Polymorphonuclear 14.4 %; Body Fluid WBC 375 /CUMM
[2024-03-21 14:03] LABS: Body Fluid Second Tech EM
== END ==
LOC: RADI 12:54
PROVIDERS: ATTENDING PHYSICIAN Internal Medicine; FAMILY PHYSICIAN Family Medicine
DX: R18.8 Other ascites (principal)
CPT/HCPCS: 49083; 89051

== ENCOUNTER → 2024-04-13 12:03 | Outpatient (REF) | payer MEDICARE, OTHER, SELFPAY ==
[2024-04-13 13:10] VITALS: BP 116/69; BP_SYST 91
[2024-04-13 13:38] VITALS: BP 97/56
[2024-04-13 15:15] LABS: Body Fluid Mononuclear 89.5 %; Body Fluid Polymorphonuclear 10.5 %; Body Fluid WBC 325 /CUMM
[2024-04-13 15:39] LABS: Body Fluid Second Tech EYM
== END ==
LOC: RADI 12:03
PROVIDERS: ATTENDING PHYSICIAN Internal Medicine; FAMILY PHYSICIAN Nurse Practitioner Family
DX: R18.8 Other ascites (principal)
CPT/HCPCS: 49083; 89051

== ENCOUNTER → 2024-04-13 12:06 | Outpatient (REF) | payer MEDICARE, OTHER, SELFPAY ==
[2024-04-13 14:28] LABS: INR 1.15
[2024-04-13 14:29] LABS: APTT 31.7 Sec (23.4-35.0)
[2024-04-13 14:41] LABS: ALT (SGPT) 14 U/L (0-50); AST (SGOT) 18 U/L (17-59); Albumin 3.6 g/dl (3.5-5.0); Alkaline Phosphatase 113 U/L (38-126); Blood Urea Nitrogen 22 mg/dl (9-20); Calcium 8.5 mg/dl (8.4-10.2); Carbon Dioxide 32 mmol/L (22-30); Chloride 96 mmol/L (98-107); Glucose 196 mg/dl (70-99); Potassium 3.9 mmol/L (3.5-5.1); Sodium 137 mmol/L (135-145); Total Bilirubin 1.5 mg/dl (0.2-1.3); Total Protein 7.2 g/dl (6.3-8.2); eGFR 20.94
[2024-04-13 14:45] LABS: % Basophils 1.5 % (0-2); % Eosinophils 3.1 % (0-6); % Immature Granulocytes 0.5 % (0-0.5); % Lymphocytes 9.2 % (20.5-51.1); % Neutrophils 75.7 % (42.2-75.2); Absolute Basophils 0.1 10^3/uL (0-0.2); Absolute Eosinophils 0.2 10^3/uL (0-0.7); Absolute Lymphocytes 0.6 10^3/uL (1.2-3.4); Absolute Monocytes 0.6 10^3/uL (0.1-0.6); Absolute Neutrophils 4.6 10^3/uL (1.4-6.5); Hematocrit 34.4 % (39.0-52.0); Hemoglobin 10.9 g/dL (13.0-18.0); Mean Corp Hgb Conc. 31.7 g/dL (33.0-37.0); Mean Corpuscular Hgb 28.8 pg (27.0-31.0); Nucleated Red Blood Cells % 0 % (-); Red Blood Cell Count 3.78 10^6/uL (4.70-6.10); Red Cell Dist. Width 15.8 % (11.5-14.5); White Blood Cell Count 6.1 10^3/uL (4.8-10.8)
[2024-04-13 15:09] LABS: Mean Platelet Volume 9.7 fL (7.4-10.4); Platelet Count 93 10^3/uL (130-400)
== END ==
LOC: REG 12:06
PROVIDERS: ATTENDING PHYSICIAN Student in an Organized Health Care Education/Training Program; FAMILY PHYSICIAN Nurse Practitioner Family
DX: R18.8 Other ascites (principal); E11.21 Type 2 diabetes mellitus with diabetic nephropathy
CPT/HCPCS: 36415; 80053; 85025; 85610; 85730

== ENCOUNTER → 2024-04-26 11:58 | Outpatient (REF) | payer MEDICARE, OTHER, SELFPAY ==
[2024-04-26 12:42] VITALS: BP 118/74; BP_SYST 87
[2024-04-26 13:52] VITALS: BP 109/76
[2024-04-26 14:19] LABS: Body Fluid Mononuclear 90.6 %; Body Fluid Polymorphonuclear 9.4 %; Body Fluid WBC 298 /CUMM
[2024-04-26 14:21] LABS: Body Fluid Second Tech CS
[2024-04-26 14:43] LABS: Body Fluid Amylase 34 U/L; Body Fluid Glucose 171 mg/dl; Body Fluid LDH 117 U/L; Body Fluid Protein 4.1 g/dl
== END ==
LOC: RADI 11:58
PROVIDERS: ATTENDING PHYSICIAN Student in an Organized Health Care Education/Training Program
DX: R18.8 Other ascites (principal)
CPT/HCPCS: 88305; 49083; 82042; 82150; 82945; 83615; 84157; 88112; 89051

== ENCOUNTER → 2024-05-02 10:49 | Outpatient (REF) | payer MEDICARE, OTHER, SELFPAY ==
[2024-05-02 10:55] VITALS: BP 102/64; BP_SYST 82
[2024-05-02 11:40] VITALS: BP 116/68; BP_SYST 82
[2024-05-02 11:47] VITALS: BP 116/68
[2024-05-02 12:33] LABS: Body Fluid Albumin 1.7 g/dl; Body Fluid Amylase < 30 U/L; Body Fluid Glucose 154 mg/dl; Body Fluid LDH 117 U/L; Body Fluid Protein 3.7 g/dl
[2024-05-02 12:38] LABS: Body Fluid Mononuclear 81.5 %; Body Fluid Polymorphonuclear 18.5 %; Body Fluid WBC 362 /CUMM
[2024-05-02 14:48] LABS: Body Fluid Second Tech CF
== END ==
LOC: RADI 10:49
PROVIDERS: ATTENDING PHYSICIAN Student in an Organized Health Care Education/Training Program; FAMILY PHYSICIAN Nurse Practitioner Family
DX: R18.8 Other ascites (principal)
CPT/HCPCS: 88305; 49083; 82042; 82150; 82945; 83615; 84157; 87015; 87070; 87205; 88112; 89051

== ENCOUNTER → 2024-05-04 13:20 | Outpatient (REF) | payer MEDICARE, OTHER, SELFPAY | LOC: RAD 13:20 | PROVIDERS: ATTENDING PHYSICIAN Student in an Organized Health Care Education/Training Program | DX: R18.8 Other ascites (principal) | CPT/HCPCS: 76700; 93975 ==

== ENCOUNTER → 2024-05-09 10:50 | Outpatient (REF) | payer MEDICARE, OTHER, SELFPAY ==
[2024-05-09 11:05] VITALS: BP 110/56; BP_SYST 76
[2024-05-09 11:35] VITALS: BP 110/63; BP_SYST 73
[2024-05-09 12:58] LABS: Body Fluid Polymorphonuclear 13.8 %; Body Fluid WBC 421 /CUMM
[2024-05-09 12:59] LABS: Body Fluid Mononuclear 86.2 %
[2024-05-09 17:51] LABS: Body Fluid Second Tech DW
== END ==
LOC: RADI 10:50
PROVIDERS: ATTENDING PHYSICIAN Student in an Organized Health Care Education/Training Program
DX: R18.8 Other ascites (principal)
CPT/HCPCS: 49083; 89051

== ENCOUNTER → 2024-05-16 10:57 | Outpatient (REF) | payer MEDICARE, OTHER, SELFPAY ==
[2024-05-16 11:22] VITALS: BP 104/60; BP_SYST 78
[2024-05-16 11:37] VITALS: BP 111/62
[2024-05-16 13:36] LABS: Body Fluid Mononuclear 92.4 %; Body Fluid Polymorphonuclear 7.6 %; Body Fluid WBC 356 /CUMM
[2024-05-16 14:07] LABS: Body Fluid Second Tech AMA
== END ==
LOC: RADI 10:57
PROVIDERS: ATTENDING PHYSICIAN Student in an Organized Health Care Education/Training Program; FAMILY PHYSICIAN Nurse Practitioner Family
DX: R18.8 Other ascites (principal)
CPT/HCPCS: 49083; 89051

== ENCOUNTER → 2024-05-23 10:42 | Outpatient (REF) | payer MEDICARE, OTHER, SELFPAY ==
[2024-05-23 11:01] VITALS: BP 110/65; BP_SYST 68
[2024-05-23 12:24] VITALS: BP 116/67
[2024-05-23 14:23] LABS: Body Fluid WBC 307 /CUMM
[2024-05-23 14:29] LABS: Body Fluid Second Tech EF
== END ==
LOC: RADI 10:42
PROVIDERS: ATTENDING PHYSICIAN Student in an Organized Health Care Education/Training Program
DX: R18.8 Other ascites (principal)
CPT/HCPCS: 49083; 89051

== ENCOUNTER → 2024-05-30 10:56 | Outpatient (REF) | payer MEDICARE, OTHER, SELFPAY ==
[2024-05-30 11:10] VITALS: BP 115/59; BP_SYST 68
[2024-05-30 11:45] VITALS: BP 121/73; BP_SYST 65
[2024-05-30 11:53] LABS: Body Fluid Mononuclear 85.3 %; Body Fluid Polymorphonuclear 14.7 %; Body Fluid WBC 340 /CUMM
[2024-05-30 12:11] LABS: Body Fluid Second Tech AMA
== END ==
LOC: RADI 10:56
PROVIDERS: ATTENDING PHYSICIAN Student in an Organized Health Care Education/Training Program
DX: R18.8 Other ascites (principal)
CPT/HCPCS: 49083; 89051

== ENCOUNTER → 2024-06-06 10:55 | Outpatient (REF) | payer MEDICARE, OTHER, SELFPAY ==
[2024-06-06 11:00] VITALS: BP 122/60; BP_SYST 87
[2024-06-06 11:40] VITALS: BP 119/64
[2024-06-06 12:41] LABS: Body Fluid WBC 341 /CUMM
[2024-06-06 12:54] LABS: Body Fluid Second Tech RP
== END ==
LOC: RADI 10:55
PROVIDERS: ATTENDING PHYSICIAN Student in an Organized Health Care Education/Training Program; FAMILY PHYSICIAN Nurse Practitioner Family
DX: R18.8 Other ascites (principal)
CPT/HCPCS: 49083; 89051

== ENCOUNTER → 2024-06-13 10:51 | Outpatient (REF) | payer MEDICARE, OTHER, SELFPAY ==
[2024-06-13 11:00] VITALS: BP 132/84; BP_SYST 76
[2024-06-13 12:44] LABS: Body Fluid WBC 326 /CUMM
[2024-06-13 12:45] LABS: Body Fluid Mononuclear 85.3 %; Body Fluid Polymorphonuclear 14.7 %
[2024-06-13 12:48] LABS: Body Fluid Second Tech EM
== END ==
LOC: RADI 10:51
PROVIDERS: ATTENDING PHYSICIAN Student in an Organized Health Care Education/Training Program; FAMILY PHYSICIAN Nurse Practitioner Family
DX: R18.8 Other ascites (principal)
CPT/HCPCS: 49083; 89051

== ENCOUNTER → 2024-06-15 12:25 | Outpatient (REF) | payer MEDICARE, OTHER, SELFPAY | LOC: WOUND 12:25 | PROVIDERS: ATTENDING PHYSICIAN Surgery; FAMILY PHYSICIAN Nurse Practitioner Family | DX: L97.211 Non-pressure chronic ulcer of right calf limited to breakdown of skin (principal); L97.312 Non-pressure chronic ulcer of right ankle with fat layer exposed; L89.610 Pressure ulcer of right heel, unstageable; N18.6 End stage renal disease; Z99.2 Dependence on renal dialysis; E11.59 Type 2 diabetes mellitus with other circulatory complications; R18.8 Other ascites; I25.10 Atherosclerotic heart disease of native coronary artery without angina pectoris; I87.2 Venous insufficiency (chronic) (peripheral); I73.9 Peripheral vascular disease, unspecified; Z79.4 Long term (current) use of insulin | CPT/HCPCS: 97597; 99214 ==

== ENCOUNTER → 2024-06-20 10:50 | Outpatient (REF) | payer MEDICARE, OTHER, SELFPAY ==
[2024-06-20 11:05] VITALS: BP 123/67; BP_SYST 69
[2024-06-20 11:25] VITALS: BP 113/72
[2024-06-20 12:18] LABS: Body Fluid Polymorphonuclear 17.7 %; Body Fluid WBC 322 /CUMM
[2024-06-20 12:19] LABS: Body Fluid Mononuclear 82.3 %
[2024-06-20 12:20] LABS: Body Fluid Second Tech EM
== END ==
LOC: RADI 10:50
PROVIDERS: ATTENDING PHYSICIAN Student in an Organized Health Care Education/Training Program; FAMILY PHYSICIAN Nurse Practitioner Family
DX: R18.8 Other ascites (principal)
CPT/HCPCS: 49083; 89051

== ENCOUNTER → 2024-06-22 12:54 | Outpatient (REF) | payer MEDICARE, OTHER, SELFPAY | LOC: WOUND 12:54 | PROVIDERS: ATTENDING PHYSICIAN Surgery; FAMILY PHYSICIAN Nurse Practitioner Family | DX: L97.211 Non-pressure chronic ulcer of right calf limited to breakdown of skin (principal); L97.312 Non-pressure chronic ulcer of right ankle with fat layer exposed; L89.610 Pressure ulcer of right heel, unstageable; L97.822 Non-pressure chronic ulcer of other part of left lower leg with fat layer exposed; N18.6 End stage renal disease; E11.59 Type 2 diabetes mellitus with other circulatory complications; R18.8 Other ascites; I25.10 Atherosclerotic heart disease of native coronary artery without angina pectoris; I87.2 Venous insufficiency (chronic) (peripheral); I73.9 Peripheral vascular disease, unspecified; Z99.2 Dependence on renal dialysis; Z79.4 Long term (current) use of insulin; E11.22 Type 2 diabetes mellitus with diabetic chronic kidney disease | CPT/HCPCS: 11042; 97597 ==

== ENCOUNTER → 2024-06-27 10:57 | Outpatient (REF) | payer MEDICARE, OTHER, SELFPAY ==
[2024-06-27 11:54] VITALS: BP 115/70
[2024-06-27 12:54] LABS: Body Fluid Mononuclear 83.9 %; Body Fluid Polymorphonuclear 16.1 %; Body Fluid WBC 368 /CUMM
[2024-06-27 13:01] LABS: Body Fluid Second Tech ASW
== END ==
LOC: RADI 10:57
PROVIDERS: ATTENDING PHYSICIAN Student in an Organized Health Care Education/Training Program; FAMILY PHYSICIAN Nurse Practitioner Family
DX: R18.8 Other ascites (principal)
CPT/HCPCS: 49083; 89051

== ENCOUNTER → 2024-06-28 14:32 | Outpatient (REF) | payer MEDICARE, OTHER, SELFPAY | LOC: RAD 14:32 | PROVIDERS: ATTENDING PHYSICIAN Physician Assistant; FAMILY PHYSICIAN Nurse Practitioner Family | DX: I73.9 Peripheral vascular disease, unspecified (principal) | CPT/HCPCS: 93922; 93925 ==

== ENCOUNTER → 2024-06-29 13:12 | Outpatient (REF) | payer MEDICARE, OTHER, SELFPAY | LOC: WOUND 13:12 | PROVIDERS: ATTENDING PHYSICIAN Surgery; FAMILY PHYSICIAN Nurse Practitioner Family | DX: L97.211 Non-pressure chronic ulcer of right calf limited to breakdown of skin (principal); L97.312 Non-pressure chronic ulcer of right ankle with fat layer exposed; L89.610 Pressure ulcer of right heel, unstageable; L97.822 Non-pressure chronic ulcer of other part of left lower leg with fat layer exposed; N18.6 End stage renal disease; R18.8 Other ascites; I25.10 Atherosclerotic heart disease of native coronary artery without angina pectoris; I87.2 Venous insufficiency (chronic) (peripheral); I73.9 Peripheral vascular disease, unspecified | CPT/HCPCS: 11042 ==

== ENCOUNTER → 2024-07-04 10:50 | Outpatient (REF) | payer MEDICARE, OTHER, SELFPAY ==
[2024-07-04 10:50] VITALS: BP 110/59; BP_SYST 77
[2024-07-04 11:30] VITALS: BP 118/66; BP_SYST 70
[2024-07-04 11:35] VITALS: BP 118/66
[2024-07-04 12:15] LABS: Body Fluid Mononuclear 78.5 %; Body Fluid Polymorphonuclear 21.5 %; Body Fluid WBC 512 /CUMM
[2024-07-04 12:17] LABS: Body Fluid Second Tech US
== END ==
LOC: RADI 10:50
PROVIDERS: ATTENDING PHYSICIAN Student in an Organized Health Care Education/Training Program; FAMILY PHYSICIAN Nurse Practitioner Family
DX: R18.8 Other ascites (principal)
CPT/HCPCS: 49083; 89051

== ENCOUNTER → 2024-07-05 12:27 | Outpatient (REF) | payer MEDICARE, OTHER, SELFPAY | LOC: RAD 12:27 | PROVIDERS: ATTENDING PHYSICIAN Surgery; FAMILY PHYSICIAN Nurse Practitioner Family | DX: L97.211 Non-pressure chronic ulcer of right calf limited to breakdown of skin (principal); I87.2 Venous insufficiency (chronic) (peripheral) | CPT/HCPCS: 93971 ==

== ENCOUNTER → 2024-07-06 13:41 | Outpatient (REF) | payer MEDICARE, OTHER, SELFPAY | LOC: MRI 13:41 | PROVIDERS: ATTENDING PHYSICIAN Student in an Organized Health Care Education/Training Program; FAMILY PHYSICIAN Nurse Practitioner Family | DX: R16.2 Hepatomegaly with splenomegaly, not elsewhere classified (principal); R18.8 Other ascites | CPT/HCPCS: 74181 ==

== ENCOUNTER → 2024-07-11 11:00 | Outpatient (REF) | payer MEDICARE, OTHER, SELFPAY ==
[2024-07-11 11:13] VITALS: BP 115/59; BP_SYST 89
[2024-07-11 11:41] VITALS: BP 104/60
[2024-07-11 13:44] LABS: Body Fluid WBC 424 /CUMM
[2024-07-11 14:08] LABS: Body Fluid Second Tech ASW
== END ==
LOC: RADI 11:00
PROVIDERS: ATTENDING PHYSICIAN Student in an Organized Health Care Education/Training Program; FAMILY PHYSICIAN Nurse Practitioner Family
DX: R18.8 Other ascites (principal)
CPT/HCPCS: 49083; 89051

== ENCOUNTER → 2024-07-13 13:00 | Outpatient (REF) | payer MEDICARE, OTHER, SELFPAY | LOC: WOUND 13:00 | PROVIDERS: ATTENDING PHYSICIAN Surgery; FAMILY PHYSICIAN Nurse Practitioner Family | DX: L97.211 Non-pressure chronic ulcer of right calf limited to breakdown of skin (principal); L97.312 Non-pressure chronic ulcer of right ankle with fat layer exposed; L89.613 Pressure ulcer of right heel, stage 3; E11.59 Type 2 diabetes mellitus with other circulatory complications; N18.6 End stage renal disease; R18.8 Other ascites; I25.10 Atherosclerotic heart disease of native coronary artery without angina pectoris; I87.2 Venous insufficiency (chronic) (peripheral); I73.9 Peripheral vascular disease, unspecified; E11.22 Type 2 diabetes mellitus with diabetic chronic kidney disease; Z79.4 Long term (current) use of insulin; Z99.2 Dependence on renal dialysis | CPT/HCPCS: 11042; 97597 ==

== ENCOUNTER → 2024-07-18 10:58 | Outpatient (REF) | payer MEDICARE, OTHER, SELFPAY ==
[2024-07-18 11:11] VITALS: BP 115/70; BP_SYST 82
[2024-07-18 11:46] VITALS: BP 110/72
[2024-07-18 12:24] LABS: Body Fluid Mononuclear 81.5 %; Body Fluid Polymorphonuclear 18.5 %; Body Fluid Second Tech CF; Body Fluid WBC 362 /CUMM
== END ==
LOC: RADI 10:58
PROVIDERS: ATTENDING PHYSICIAN Student in an Organized Health Care Education/Training Program; FAMILY PHYSICIAN Nurse Practitioner Family
DX: R18.8 Other ascites (principal)
CPT/HCPCS: 49083; 89051

== ENCOUNTER → 2024-07-20 12:26 | Outpatient (REF) | payer MEDICARE, OTHER, SELFPAY | LOC: WOUND 12:26 | PROVIDERS: ATTENDING PHYSICIAN Surgery; FAMILY PHYSICIAN Nurse Practitioner Family | DX: L97.211 Non-pressure chronic ulcer of right calf limited to breakdown of skin (principal); L97.312 Non-pressure chronic ulcer of right ankle with fat layer exposed; L89.613 Pressure ulcer of right heel, stage 3; E11.59 Type 2 diabetes mellitus with other circulatory complications; N18.6 End stage renal disease; R18.8 Other ascites; I25.10 Atherosclerotic heart disease of native coronary artery without angina pectoris; I87.2 Venous insufficiency (chronic) (peripheral); I73.9 Peripheral vascular disease, unspecified; E11.22 Type 2 diabetes mellitus with diabetic chronic kidney disease; Z99.2 Dependence on renal dialysis; Z79.4 Long term (current) use of insulin | CPT/HCPCS: 11042 ==

== ENCOUNTER → 2024-07-25 10:51 | Outpatient (REF) | payer MEDICARE, OTHER, SELFPAY ==
[2024-07-25 11:00] VITALS: BP 96/65; BP_SYST 78
[2024-07-25 11:40] VITALS: BP 102/59; BP_SYST 82
[2024-07-25 11:47] VITALS: BP 102/59
[2024-07-25 12:21] LABS: Body Fluid Mononuclear 78.8 %; Body Fluid Polymorphonuclear 21.2 %; Body Fluid WBC 364 /CUMM
[2024-07-25 12:24] LABS: Body Fluid Second Tech EF
== END ==
LOC: RADI 10:51
PROVIDERS: ATTENDING PHYSICIAN Student in an Organized Health Care Education/Training Program
DX: R18.8 Other ascites (principal)
CPT/HCPCS: 49083; 89051

== ENCOUNTER → 2024-08-01 10:53 | Outpatient (REF) | payer MEDICARE, OTHER, SELFPAY ==
[2024-08-01 11:10] VITALS: BP 98/58; BP_SYST 70
[2024-08-01 11:35] VITALS: BP 98/65; BP_SYST 73
[2024-08-01 13:22] LABS: Body Fluid Mononuclear 78.5 %; Body Fluid Polymorphonuclear 21.5 %; Body Fluid WBC 396 /CUMM
[2024-08-01 13:26] LABS: Body Fluid Second Tech EM
== END ==
LOC: RADI 10:53
PROVIDERS: ATTENDING PHYSICIAN Student in an Organized Health Care Education/Training Program; FAMILY PHYSICIAN Nurse Practitioner Family
DX: R18.8 Other ascites (principal)
CPT/HCPCS: 49083; 89051

== ENCOUNTER → 2024-08-03 13:10 | Outpatient (REF) | payer MEDICARE, OTHER, SELFPAY | LOC: WOUND 13:10 | PROVIDERS: ATTENDING PHYSICIAN Surgery; FAMILY PHYSICIAN Nurse Practitioner Family | DX: L97.211 Non-pressure chronic ulcer of right calf limited to breakdown of skin (principal); L97.312 Non-pressure chronic ulcer of right ankle with fat layer exposed; L89.613 Pressure ulcer of right heel, stage 3; L97.811 Non-pressure chronic ulcer of other part of right lower leg limited to breakdown of skin; E11.59 Type 2 diabetes mellitus with other circulatory complications; N18.6 End stage renal disease; I25.10 Atherosclerotic heart disease of native coronary artery without angina pectoris; I87.2 Venous insufficiency (chronic) (peripheral); I73.9 Peripheral vascular disease, unspecified; Z79.4 Long term (current) use of insulin; Z99.2 Dependence on renal dialysis; E11.22 Type 2 diabetes mellitus with diabetic chronic kidney disease | CPT/HCPCS: 11042 ==

== ENCOUNTER 2024-08-07 06:00 | Day surgery (SDC) | payer MEDICARE, OTHER, SELFPAY ==
[2024-08-07] VITALS (17 sets, daily range): BP systolic 98–117; BP diastolic 41–69; BMI 29.0
[2024-08-07] MEDS: NSS 500 IV (06:56)
[2024-08-07 07:03] LABS: Glucose - Point of Care 192 mg/dl (70-99)
--- NOTE | 2024-08-07 07:05 | HP.FOC2 ---
Focused History & Physical
Chief Complaint
HPI:
Chief Complaint: Right lower extremity wounds
HPI / Indication for Planned Procedure: This is a 64-year-old male with significant past medical history for hypertension, diabetes, hypercholesterolemia, sleep apnea, peripheral arterial disease, coronary artery disease, peripheral neuropathy,
cardiomyopathy, seasonal allergies, ESRD, pulmonary hypertension, anemia, pulmonary edema, ischemic cardiomyopathy, hypothyroid, osteomyelitis, amputation of left lower extremity, and hypothyroid who presents to [facility] for scheduled
right lower extremity angiogram with left femoral access for nonhealing right calf wounds with Dr. Son Ritchie III. Patient denies recent hospitalization, trauma, and illness. Denies nausea, vomiting, fever, chills, diarrhea, abdominal pain,
cough, and chest pain. He endorses that he is at his baseline health.
Relevant Past Medical History: Coronary Artery Disease, Diabetes, Sleep Apnea and Other (Peripheral arterial disease, peripheral neuropathy, cardiomyopathy, seasonal allergies, ESRD on HD, pulmonary hypertension, anemia, hypothyroid, osteomyelitis)
Relevant Social History: Negative (Former smoker)
Relevant Past Surgical History: Positive for (Tonsillectomy/adenoidectomy, left popliteal artery angioplasty and stent, CABG x 3, left lower extremity angiogram, renal biopsy, left upper extremity fistula creation, right eye cataract surgery, left
heel ORIF, left BKA)
Review of Systems
Review of Pertinent Systems: All Systems Negative
Medication
See Medication form for detailed medications: Yes
Medication List (including Herbals & OTC):
atorvastatin 80 mg tablet 80 mg PO HS High cholesterol 03/10/20
levothyroxine 25 mcg tablet 25 mcg PO DAILY AT 0700 Thyroid 08/18/22
acetaminophen 500 mg tablet 1,000 mg PO Q6H PRN mild pain 12/28/22
gabapentin 300 mg capsule 600 mg PO .LUNCH Pain 05/13/23
insulin glargine 100 unit/mL (3 mL) subcutaneous pen (Lantus Solostar U-100 Insulin) 20 unit SC HS 07/29/23
aspirin 81 mg tablet,delayed release 81 mg PO DAILY 01/02/24
sevelamer carbonate 800 mg tablet (Renvela) 2,400 mg PO TID 01/02/24
mineral oil-hydrophil petrolat topical ointment 1 applic topical DAILY 01/03/24
midodrine 5 mg tablet 10 mg PO TID@0800,1300,1800 04/13/24
insulin aspart U-100 100 unit/mL (3 mL) subcutaneous pen (Novolog FlexPen U-100 Insulin aspart) 10 unit SC TID 04/26/24
collagenase clostridium histo. 250 unit/gram topical ointment (Santyl) 1 applic topical DAILY PRN leg wound 08/02/24
fexofenadine 180 mg tablet 180 mg PO DAILY 08/02/24
gel dressing (Solosite Wound Gel topical) 08/02/24
Medications Reviewed: Yes
Allergies and Reactions
Patient has Allergies: Yes
Noted Allergies and Reactions:
Allergy/AdvReac Type Severity Reaction Status Date / Time
pollen extracts Allergy Unknown Verified 08/07/24 06:24
scallops Allergy Vomiting Verified 08/07/24 06:24
seafood Allergy Unknown Uncoded 08/07/24 06:24
Pertinent Physical Exam
All Other Systems: Negative
Head/Neck: Normal
Lungs: Other (Bilateral lungs clear but diminished at bases)
Heart: Normal (RRR)
Abdomen: Normal (Rotund, nondistended, nontender)
Extremities: Other (Right lower extremity calf with chronic wounds, unable to palpate distal right foot pulses, left BKA stump site with erythema and early blisterlike appearing skin, no breakdown of skin evident at left BKA nor warmth, left upper
extremity AV fistula positive thrill)
Neurological: Normal
Diagnosis / Assessment
Assessment: 64-year-old male with peripheral arterial disease and nonhealing right calf wounds.
Plan / Procedure
Plan: Will proceed with scheduled right lower extremity angiogram with possible endovascular intervention with Dr. Son Ritchie III.
Anesthesia/Sedation to be done by Anesthesia Provider: Yes
[2024-08-07 07:17] LABS: Hematocrit 36.6 % (39.0-52.0); Hemoglobin 12.5 g/dL (13.0-18.0); Mean Corp Hgb Conc. 34.2 g/dL (33.0-37.0); Mean Corpuscular Hgb 31.9 pg (27.0-31.0); Mean Corpuscular Volume 93.4 fL (80.0-94.0); Mean Platelet Volume 10.2 fL (7.4-10.4); Platelet Count 146 10^3/uL (130-400); Red Blood Cell Count 3.92 10^6/uL (4.70-6.10); Red Cell Dist. Width 15.8 % (11.5-14.5); White Blood Cell Count 7.1 10^3/uL (4.8-10.8)
[2024-08-07 07:35] LABS: Blood Urea Nitrogen 42 mg/dl (9-20); Calcium 8.8 mg/dl (8.4-10.2); Carbon Dioxide 31 mmol/L (22-30); Chloride 99 mmol/L (98-107); Estimated Creatinine Clearance 15 ml/min; Glucose 178 mg/dl (70-99); Potassium 5.5 mmol/L (3.5-5.1); Sodium 138 mmol/L (135-145); eGFR 11.97
[2024-08-07 07:50] LABS: PT 14.5 Sec (11.4-14.6)
[2024-08-07 08:01] LABS: APTT 29.3 Sec (23.4-35.0)
[2024-08-07 10:47] LABS: Glucose - Point of Care 145 mg/dl (70-99)
[2024-08-07] MEDS: PLAVIX 150 MG PO (11:03)
[2024-08-07 13:38] LABS: Glucose - Point of Care 152 mg/dl (70-99)
--- NOTE | 2024-08-07 15:06 | OR.RPT ---
Operative Report
Operative Report
Date of Operation: 08/07/2024
Pre Op Diagnosis:
1. [place] artery atherosclerosis with nonhealing calf and heel ulcerations
2. Diabetes with peripheral artery occlusive disease
3. End-stage renal disease requiring hemodialysis
4. Prior left below the knee amputation
Post Op Diagnosis:
1. [place] artery atherosclerosis with nonhealing calf and heel ulcerations
2. Diabetes with peripheral artery occlusive disease
3. End-stage renal disease requiring hemodialysis
4. Prior left below the knee amputation
Procedure:
1.) Intravascular lithotripsy to right popliteal artery and superficial femoral artery (7 mm x 60 mm M5+ shockwave balloon)
2.) Drug-coated balloon angioplasty to right superficial femoral artery and popliteal artery (6 mm x 220 mm Lutonix DCB)
3.) Drug-coated balloon angioplasty to tibioperoneal trunk (4 mm x 40 mm Lutonix DCB)
4.) Balloon angioplasty to proximal peroneal artery (3.5 mm x 40 mm angioplasty balloon)
5.) Intravascular ultrasound to peroneal artery, tibioperoneal trunk, popliteal artery, superficial femoral artery
6.) Diagnostic aortobiiliac arteriogram
7.) Diagnostic right lower extremity arteriogram
8.) Ultrasound-Guided percutaneous access to the left common femoral artery
Surgeon: Son Ritchie III, MD
Title Specialist: Driss Angelo MD, PGY5
Anesthesia: Sedation with local
Fluoroscopy:
44.2 min
432 mGy
156.52 gy.cm2
Complications: None
Estimated Blood Loss: Less than 20 cc
History and Indications for Procedure: 64-year-old male with multiple medical comorbidities and limb threatening ischemia of his right lower extremity manifested by nonhealing wounds.
Procedure in Detail: Josue Harrison was correctly identified and placed supine on the operating table. After adequate induction of anesthesia the bilateral groins were prepped and draped in the usual sterile fashion. A timeout was performed with the
nursing and anesthesia staff confirming the patient's identity as well as the nature and laterality of the procedure.
The left common femoral artery was identified under ultrasound guidance. The artery was patent. The superior and inferior aspects of the femoral head were identified with radiographic guidance and marked at the skin level. The proposed puncture site
was infiltrated with local anesthesia. Under ultrasound guidance we accessed the left common femoral artery with a micropuncture needle and upsized to a 5 Fr sheath over a [employer] wire. The wire and a Shepherds hook flush catheter were advanced into
the distal abdominal aorta and a diagnostic aorto-biiliac arteriogram was performed:
AORTO-ILIAC ARTERIOGRAM:
Aorta: Peripherally calcified but patent with no significant stenosis identified
Right common iliac artery: Peripherally calcified but patent with no significant stenosis identified
Right external iliac artery: Peripherally calcified but patent with no significant stenosis identified
Left common iliac artery: Peripherally calcified but patent with no significant stenosis identified
Left external iliac artery: Peripherally calcified but patent with no significant stenosis identified
Under roadmap guidance using a Glidewire and the Shepherds hook catheter we selected the right common iliac artery and then the external iliac artery. A Quickcross catheter was tracked up and over the aortic bifurcation and placed in the distal
external iliac artery. A diagnostic right lower extremity arteriogram was then performed which demonstrated the following:
RIGHT LOWER EXTREMITY:
Common femoral artery: Heavily calcified. Patent with no significant stenosis identified
[place] femoral artery: Heavily calcified. Patent with no significant stenosis identified
Superficial femoral artery: Heavily calcified throughout. Areas of scattered mild stenosis in the proximal and mid segment. Focal high-grade stenosis distally.
Popliteal artery: Heavily calcified throughout. Areas of high-grade stenosis in the above-knee popliteal segment. Moderate to high-grade stenosis of the terminal below-knee popliteal artery near the AT takeoff
Anterior tibial artery: Heavily calcified. Occluded. Reconstitution of the dorsalis pedis artery is identified in the foot
Tibioperoneal trunk: Patent. Heavily calcified.
Peroneal artery: Patent. Single tibial artery runoff vessel. Patent to the ankle
Posterior tibial artery: Patent proximally but diminutive and occluded thereafter with no distal reconstitution
Limited flow to the heel via posterior peroneal collaterals
ENDOVASCULAR INTERVENTION: Systemic heparin was administered. Exchanged out for a 5 Fr 45 cm sheath over a Storq wire. Selected the superficial femoral artery followed by the popliteal under roadmap guidance with Quickcross catheter and glidewire.
The peroneal artery was then selected. The wire and catheter were advanced into the proximal peroneal artery and subtraction angio confirmed proper position in the true lumen. Exchanged out for a 0.014 wire. The IVUS catheter was then brought into
position and intravascular ultrasound was performed on the superficial femoral artery, popliteal artery, tibioperoneal trunk and proximal peroneal artery. Diffuse calcification was identified across all segments. Reference diameter measurements
were made. Following this the catheter was removed. I exchanged out for a short floppy tip Amplatz wire. I then upsized to a 7 [place] 55 cm sheath.
Due to the heavily calcified nature of the superficial femoral artery and popliteal artery disease and in an effort to modify the calcium to achieve maximum luminal gain with endovascular intervention I elected to proceed with intravascular
lithotripsy. Based on the IVUS diameter measurements a 7 mm x 60 mm Shockwave balloon was placed across the distal popliteal artery stenosis under roadmap guidance. Alternating rounds of lithotripsy pulse delivery at sub-nominal pressure and
angioplasty at nominal pressure was performed across the diseased popliteal artery and distal superficial femoral artery segment. In between rounds of pulse delivery and angioplasty the balloon was deflated and repositioned under roadmap guidance.
All 300 pulses were delivered. Subsequent arteriogram demonstrated an improved result but areas of focal dissection and a residual stenosis behind the knee remained. I then brought into position a 6 mm x 220 mm Lutonix drug-coated balloon. This
was positioned in the desired location across the popliteal artery and distal superficial femoral artery. The balloon was inflated to nominal pressure and held in place for a 4-minute inflation. I then removed the balloon over the wire.
Subsequent arteriogram demonstrated a nice angiographic result with patent distal superficial femoral artery and popliteal artery with good flow and only minimal stenosis remaining. Once again identified was the stenosis in the distal popliteal
artery below the knee at the anterior tibial artery takeoff and a proximal peroneal artery stenosis.
We then focused my attention on the terminal below-knee popliteal artery stenosis. Under roadmap guidance that brought into position a 4 mm x 40 mm Lutonix drug-coated balloon. This was positioned in the desired location under roadmap guidance and
inflated to nominal pressure. The balloon was held in place at nominal pressure for 3-minute inflation. Following this I brought into position a 3.5 mm x 40 mm angioplasty balloon to treat the proximal peroneal artery stenosis. This balloon was
placed in the desired location under roadmap guidance, inflated to nominal pressure and held in place for 2-minute inflation.
Subsequent arteriogram demonstrated a patent popliteal artery below the knee with minimal residual stenosis and no dissection identified. The tibioperoneal trunk and peroneal artery were widely patent with no residual stenosis identified. The
peroneal artery was patent to the ankle where it gave off anterior collaterals to reconstitute the dorsalis pedis artery in the foot. There was no reconstitution of the posterior tibial artery or plantar branches in the foot. Limited flow to the
heel was identified.
Satisfied with this result we concluded the procedure. The sheath tip was pulled back into the left external iliac artery. Protamine was administered. The sheath was pulled and direct manual pressure was held over the puncture site until
hemostasis was achieved. A sterile dressing was applied.
The patient tolerated the procedure well and was taken to the recovery area in stable condition.
Attestation: I was present and responsible for the entire procedure.
Signed:
Son Ritchie III, MD
Vascular Surgery
[facility]
== END 2024-08-08 15:03 | disposition home or self-care (01) ==
LOC: CATH 06:00
PROVIDERS: ATTENDING PHYSICIAN Surgery Vascular Surgery; OTHER PHYSICIAN Internal Medicine Cardiovascular Disease; PRIMARYCARE PHYSICIAN Nurse Practitioner Family
DX: L97.219 Non-pressure chronic ulcer of right calf with unspecified severity (principal); L97.419 Non-pressure chronic ulcer of right heel and midfoot with unspecified severity; I70.232 Atherosclerosis of native arteries of right leg with ulceration of calf; I70.234 Atherosclerosis of native arteries of right leg with ulceration of heel and midfoot; E03.9 Hypothyroidism, unspecified; E11.22 Type 2 diabetes mellitus with diabetic chronic kidney disease; E11.42 Type 2 diabetes mellitus with diabetic polyneuropathy; E11.51 Type 2 diabetes mellitus with diabetic peripheral angiopathy without gangrene; E11.621 Type 2 diabetes mellitus with foot ulcer; E11.69 Type 2 diabetes mellitus with other specified complication; I25.10 Atherosclerotic heart disease of native coronary artery without angina pectoris; Z89.512 Acquired absence of left leg below knee; Z79.890 Hormone replacement therapy; Z79.899 Other long term (current) drug therapy; Z79.4 Long term (current) use of insulin; Z79.82 Long term (current) use of aspirin
CPT/HCPCS: 37252; C9764; C9772; 75625; 75710; 80048; 82962; 85027; 85610; 85730; 93005; C1725; C1769; C1894; C2623; Q9967

== ENCOUNTER → 2024-08-08 11:11 | Outpatient (REF) | payer MEDICARE, OTHER, SELFPAY ==
[2024-08-08 11:20] VITALS: BP 110/57; BP_SYST 85
[2024-08-08 11:55] VITALS: BP 100/57; BP_SYST 80
[2024-08-08 12:09] VITALS: BP 100/57
[2024-08-08 12:43] LABS: Body Fluid Mononuclear 84.2 %; Body Fluid Polymorphonuclear 15.8 %; Body Fluid WBC 418 /CUMM
[2024-08-08 12:47] LABS: Body Fluid Second Tech ASW
== END ==
LOC: RADI 11:11
PROVIDERS: ATTENDING PHYSICIAN Student in an Organized Health Care Education/Training Program; FAMILY PHYSICIAN Nurse Practitioner Family
DX: R18.8 Other ascites (principal)
CPT/HCPCS: 49083; 89051

== ENCOUNTER → 2024-08-15 10:37 | Outpatient (REF) | payer MEDICARE, OTHER, SELFPAY ==
[2024-08-15 10:35] VITALS: BP 107/63; BP_SYST 75
[2024-08-15 11:03] VITALS: BP 107/63; BP_SYST 75
[2024-08-15 11:15] VITALS: BP 103/53
[2024-08-15 12:23] LABS: Body Fluid Mononuclear 84.6 %; Body Fluid Polymorphonuclear 15.4 %; Body Fluid WBC 590 /CUMM
[2024-08-15 12:34] LABS: Body Fluid Second Tech EF
== END ==
LOC: RADI 10:37
PROVIDERS: ATTENDING PHYSICIAN Student in an Organized Health Care Education/Training Program; FAMILY PHYSICIAN Nurse Practitioner Family
DX: R18.8 Other ascites (principal)
CPT/HCPCS: 49083; 89051

== ENCOUNTER → 2024-08-22 10:29 | Outpatient (REF) | payer MEDICARE, OTHER, SELFPAY ==
[2024-08-22 10:42] VITALS: BP 116/67; BP_SYST 67
[2024-08-22 11:20] VITALS: BP 106/66; BP_SYST 67
[2024-08-22 11:50] LABS: Body Fluid Second Tech EM
== END ==
LOC: RADI 10:29
PROVIDERS: ATTENDING PHYSICIAN Student in an Organized Health Care Education/Training Program; FAMILY PHYSICIAN Nurse Practitioner Family
DX: R18.8 Other ascites (principal)
CPT/HCPCS: 49083; 89051

== ENCOUNTER → 2024-08-29 10:32 | Outpatient (REF) | payer MEDICARE, OTHER, SELFPAY ==
[2024-08-29 10:45] VITALS: BP 109/61; BP_SYST 74
[2024-08-29 11:15] VITALS: BP 111/67
[2024-08-29 13:40] LABS: Body Fluid Second Tech CW
== END ==
LOC: RADI 10:32
PROVIDERS: ATTENDING PHYSICIAN Student in an Organized Health Care Education/Training Program; FAMILY PHYSICIAN Nurse Practitioner Family
DX: R18.8 Other ascites (principal)
CPT/HCPCS: 49083; 89051

== ENCOUNTER → 2024-08-31 10:27 | Outpatient (REF) | payer MEDICARE, OTHER, SELFPAY | LOC: WOUND 10:27 | PROVIDERS: ATTENDING PHYSICIAN Surgery; FAMILY PHYSICIAN Nurse Practitioner Family | DX: L97.211 Non-pressure chronic ulcer of right calf limited to breakdown of skin (principal); L97.312 Non-pressure chronic ulcer of right ankle with fat layer exposed; L89.613 Pressure ulcer of right heel, stage 3; L97.811 Non-pressure chronic ulcer of other part of right lower leg limited to breakdown of skin; E11.59 Type 2 diabetes mellitus with other circulatory complications; N18.6 End stage renal disease; Z99.2 Dependence on renal dialysis; Z79.4 Long term (current) use of insulin; R18.8 Other ascites; I25.10 Atherosclerotic heart disease of native coronary artery without angina pectoris; I87.2 Venous insufficiency (chronic) (peripheral); I73.9 Peripheral vascular disease, unspecified; E11.22 Type 2 diabetes mellitus with diabetic chronic kidney disease | CPT/HCPCS: 99213 ==

== ENCOUNTER → 2024-09-05 10:27 | Outpatient (REF) | payer MEDICARE, OTHER, SELFPAY ==
[2024-09-05 10:38] VITALS: BP 117/60; BP_SYST 74
[2024-09-05 11:26] VITALS: BP 110/56
[2024-09-05 11:34] LABS: Body Fluid Second Tech AMA
== END ==
LOC: RADI 10:27
PROVIDERS: ATTENDING PHYSICIAN Student in an Organized Health Care Education/Training Program; FAMILY PHYSICIAN Nurse Practitioner Family
DX: R18.8 Other ascites (principal)
CPT/HCPCS: 49083; 89051

== ENCOUNTER → 2024-09-12 10:35 | Outpatient (REF) | payer MEDICARE, OTHER, SELFPAY ==
[2024-09-12 10:48] VITALS: BP 104/56; BP_SYST 73
[2024-09-12 11:20] VITALS: BP 109/61; BP_SYST 71
[2024-09-12 11:24] VITALS: BP 109/61
[2024-09-12 11:50] LABS: Body Fluid Second Tech SS
== END ==
LOC: RADI 10:35
PROVIDERS: ATTENDING PHYSICIAN Student in an Organized Health Care Education/Training Program; FAMILY PHYSICIAN Nurse Practitioner Family
DX: R18.8 Other ascites (principal)
CPT/HCPCS: 49083; 89051

== ENCOUNTER → 2024-09-14 10:37 | Outpatient (REF) | payer MEDICARE, OTHER, SELFPAY | LOC: WOUND 10:37 | PROVIDERS: ATTENDING PHYSICIAN Surgery; FAMILY PHYSICIAN Nurse Practitioner Family | DX: L97.211 Non-pressure chronic ulcer of right calf limited to breakdown of skin (principal); L97.312 Non-pressure chronic ulcer of right ankle with fat layer exposed; L89.613 Pressure ulcer of right heel, stage 3; L97.811 Non-pressure chronic ulcer of other part of right lower leg limited to breakdown of skin; E11.59 Type 2 diabetes mellitus with other circulatory complications; N18.6 End stage renal disease; Z99.2 Dependence on renal dialysis; Z79.4 Long term (current) use of insulin; R18.8 Other ascites; I87.2 Venous insufficiency (chronic) (peripheral); I73.9 Peripheral vascular disease, unspecified; E11.22 Type 2 diabetes mellitus with diabetic chronic kidney disease | CPT/HCPCS: 99213 ==

== ENCOUNTER → 2024-09-19 10:37 | Outpatient (REF) | payer MEDICARE, OTHER, SELFPAY ==
[2024-09-19 10:50] VITALS: BP 124/67; BP_SYST 68
[2024-09-19 11:25] VITALS: BP 100/55
[2024-09-19 11:26] VITALS: BP 124/67; BP_SYST 68
[2024-09-19 11:36] LABS: Body Fluid Second Tech SS
== END ==
LOC: RADI 10:37
PROVIDERS: ATTENDING PHYSICIAN Student in an Organized Health Care Education/Training Program; FAMILY PHYSICIAN Nurse Practitioner Family
DX: R18.8 Other ascites (principal)
CPT/HCPCS: 49083; 89051

== ENCOUNTER → 2024-09-26 10:17 | Outpatient (REF) | payer MEDICARE, OTHER, SELFPAY ==
[2024-09-26 10:25] VITALS: BP 111/59; BP_SYST 65
[2024-09-26 11:10] VITALS: BP 103/63
[2024-09-26 13:28] LABS: Body Fluid Second Tech CW
== END ==
LOC: RADI 10:17
PROVIDERS: ATTENDING PHYSICIAN Student in an Organized Health Care Education/Training Program; FAMILY PHYSICIAN Nurse Practitioner Family
DX: R18.8 Other ascites (principal)
CPT/HCPCS: 49083; 89051

== ENCOUNTER → 2024-09-28 10:38 | Outpatient (REF) | payer MEDICARE, OTHER, SELFPAY | LOC: WOUND 10:38 | PROVIDERS: ATTENDING PHYSICIAN Surgery; FAMILY PHYSICIAN Nurse Practitioner Family | DX: L97.211 Non-pressure chronic ulcer of right calf limited to breakdown of skin (principal); L97.312 Non-pressure chronic ulcer of right ankle with fat layer exposed; L89.613 Pressure ulcer of right heel, stage 3; E11.59 Type 2 diabetes mellitus with other circulatory complications; N18.6 End stage renal disease; I25.10 Atherosclerotic heart disease of native coronary artery without angina pectoris; I87.2 Venous insufficiency (chronic) (peripheral); I73.9 Peripheral vascular disease, unspecified; Z99.2 Dependence on renal dialysis; Z79.4 Long term (current) use of insulin | CPT/HCPCS: 11042 ==

== ENCOUNTER → 2024-10-03 10:30 | Outpatient (REF) | payer MEDICARE, OTHER, SELFPAY ==
[2024-10-03 10:40] VITALS: BP 112/69; BP_SYST 69
[2024-10-03 11:20] VITALS: BP 105/66; BP_SYST 70
[2024-10-03 13:23] LABS: Body Fluid Second Tech AMA
== END ==
LOC: RADI 10:30
PROVIDERS: ATTENDING PHYSICIAN Student in an Organized Health Care Education/Training Program; FAMILY PHYSICIAN Nurse Practitioner Family
DX: R18.8 Other ascites (principal)
CPT/HCPCS: 49083; 89051

== ENCOUNTER → 2024-10-05 13:23 | Outpatient (REF) | payer MEDICARE, OTHER, SELFPAY | LOC: WOUND 13:23 | PROVIDERS: ATTENDING PHYSICIAN Surgery; FAMILY PHYSICIAN Nurse Practitioner Family | DX: L97.211 Non-pressure chronic ulcer of right calf limited to breakdown of skin (principal); L97.312 Non-pressure chronic ulcer of right ankle with fat layer exposed; L89.613 Pressure ulcer of right heel, stage 3; E11.59 Type 2 diabetes mellitus with other circulatory complications; N18.6 End stage renal disease; Z79.4 Long term (current) use of insulin; R18.8 Other ascites; I25.10 Atherosclerotic heart disease of native coronary artery without angina pectoris; I87.2 Venous insufficiency (chronic) (peripheral); I73.9 Peripheral vascular disease, unspecified; Z99.2 Dependence on renal dialysis; E11.29 Type 2 diabetes mellitus with other diabetic kidney complication | CPT/HCPCS: 11042 ==

== ENCOUNTER → 2024-10-08 15:18 | Outpatient (REF) | payer MEDICARE, OTHER, SELFPAY | LOC: RAD 15:18 | PROVIDERS: ATTENDING PHYSICIAN Registered Nurse; FAMILY PHYSICIAN Nurse Practitioner Family | DX: I73.9 Peripheral vascular disease, unspecified (principal) | CPT/HCPCS: 93922 ==

== ENCOUNTER → 2024-10-12 13:05 | Outpatient (REF) | payer MEDICARE, OTHER, SELFPAY ==
[2024-10-12 13:35] VITALS: BP 95/56; BP_SYST 80
[2024-10-12 14:30] VITALS: BP 115/60; BP_SYST 70
[2024-10-12 14:36] VITALS: BP 115/60; BP_SYST 70
[2024-10-12 14:37] VITALS: BP 115/60
[2024-10-12 16:12] LABS: Body Fluid Second Tech CW
== END ==
LOC: RADI 13:05
PROVIDERS: ATTENDING PHYSICIAN Student in an Organized Health Care Education/Training Program; FAMILY PHYSICIAN Nurse Practitioner Family
DX: R18.8 Other ascites (principal)
CPT/HCPCS: 49083; 89051

== ENCOUNTER → 2024-10-17 10:28 | Outpatient (REF) | payer MEDICARE, OTHER, SELFPAY ==
[2024-10-17 10:45] VITALS: BP 109/51; BP_SYST 77
[2024-10-17 11:40] VITALS: BP 100/61
[2024-10-17 12:24] LABS: Body Fluid Second Tech US
== END ==
LOC: RADI 10:28
PROVIDERS: ATTENDING PHYSICIAN Student in an Organized Health Care Education/Training Program; FAMILY PHYSICIAN Nurse Practitioner Family
DX: R18.8 Other ascites (principal)
CPT/HCPCS: 49083; 89051

== ENCOUNTER → 2024-10-19 10:56 | Outpatient (REF) | payer MEDICARE, OTHER, SELFPAY | LOC: WOUND 10:56 | PROVIDERS: ATTENDING PHYSICIAN Surgery; FAMILY PHYSICIAN Nurse Practitioner Family | DX: L97.211 Non-pressure chronic ulcer of right calf limited to breakdown of skin (principal); L89.613 Pressure ulcer of right heel, stage 3; L97.312 Non-pressure chronic ulcer of right ankle with fat layer exposed; L97.811 Non-pressure chronic ulcer of other part of right lower leg limited to breakdown of skin; E11.59 Type 2 diabetes mellitus with other circulatory complications; N18.6 End stage renal disease; E11.22 Type 2 diabetes mellitus with diabetic chronic kidney disease; R18.8 Other ascites; I25.10 Atherosclerotic heart disease of native coronary artery without angina pectoris; I87.2 Venous insufficiency (chronic) (peripheral); I73.9 Peripheral vascular disease, unspecified; Z79.4 Long term (current) use of insulin; Z99.2 Dependence on renal dialysis | CPT/HCPCS: 11042; 97597 ==

== ENCOUNTER → 2024-10-24 10:33 | Outpatient (REF) | payer MEDICARE, OTHER, SELFPAY ==
[2024-10-24 10:40] VITALS: BP 100/65; BP_SYST 76
[2024-10-24 11:40] LABS: Body Fluid Second Tech CF
== END ==
LOC: RADI 10:33
PROVIDERS: ATTENDING PHYSICIAN Student in an Organized Health Care Education/Training Program; FAMILY PHYSICIAN Nurse Practitioner Family
DX: R18.8 Other ascites (principal)
CPT/HCPCS: 49083; 89051

== ENCOUNTER → 2024-10-31 10:21 | Outpatient (REF) | payer MEDICARE, OTHER, SELFPAY ==
[2024-10-31 10:39] VITALS: BP 112/63; BP_SYST 78
[2024-10-31 11:10] VITALS: BP 122/72; BP_SYST 72
[2024-10-31 11:25] VITALS: BP 122/72
[2024-10-31 11:49] LABS: Body Fluid Second Tech US
== END ==
LOC: RADI 10:21
PROVIDERS: ATTENDING PHYSICIAN Student in an Organized Health Care Education/Training Program; FAMILY PHYSICIAN Nurse Practitioner Family
DX: R18.8 Other ascites (principal)
CPT/HCPCS: 49083; 89051

== ENCOUNTER → 2024-11-07 13:13 | Outpatient (REF) | payer MEDICARE, OTHER, SELFPAY ==
[2024-11-07 13:25] VITALS: BP 130/77; BP_SYST 67
[2024-11-07 14:02] VITALS: BP 124/78; BP_SYST 69
[2024-11-07 15:25] LABS: Body Fluid Second Tech FB
== END ==
LOC: RADI 13:13
PROVIDERS: ATTENDING PHYSICIAN Student in an Organized Health Care Education/Training Program; FAMILY PHYSICIAN Nurse Practitioner Family
DX: R18.8 Other ascites (principal)
CPT/HCPCS: 49083; 89051

== ENCOUNTER → 2024-11-14 13:53 | Outpatient (REF) | payer MEDICARE, OTHER, SELFPAY ==
[2024-11-14 14:00] VITALS: BP 128/79; BP_SYST 56
[2024-11-14 15:56] LABS: Body Fluid Second Tech FB
== END ==
LOC: RADI 13:53
PROVIDERS: ATTENDING PHYSICIAN Student in an Organized Health Care Education/Training Program
DX: R18.8 Other ascites (principal)
CPT/HCPCS: 49083; 89051

== ENCOUNTER → 2024-11-21 10:46 | Outpatient (REF) | payer MEDICARE, OTHER, SELFPAY ==
[2024-11-21 10:55] VITALS: BP 114/69; BP_SYST 71
[2024-11-21 11:22] VITALS: BP 118/64; BP_SYST 74
[2024-11-21 11:45] VITALS: BP 118/64
[2024-11-21 12:07] LABS: Body Fluid Second Tech EF
== END ==
LOC: RADI 10:46
PROVIDERS: ATTENDING PHYSICIAN Student in an Organized Health Care Education/Training Program; FAMILY PHYSICIAN Nurse Practitioner Family
DX: R18.8 Other ascites (principal)
CPT/HCPCS: 49083; 89051

== ENCOUNTER → 2024-11-23 10:40 | Outpatient (REF) | payer MEDICARE, OTHER, SELFPAY | LOC: WOUND 10:40 | PROVIDERS: ATTENDING PHYSICIAN Surgery; FAMILY PHYSICIAN Nurse Practitioner Family | DX: L97.211 Non-pressure chronic ulcer of right calf limited to breakdown of skin (principal); L89.613 Pressure ulcer of right heel, stage 3; L97.312 Non-pressure chronic ulcer of right ankle with fat layer exposed; L97.811 Non-pressure chronic ulcer of other part of right lower leg limited to breakdown of skin; E11.59 Type 2 diabetes mellitus with other circulatory complications; N18.6 End stage renal disease; Z99.2 Dependence on renal dialysis; Z79.4 Long term (current) use of insulin; R18.8 Other ascites; I25.10 Atherosclerotic heart disease of native coronary artery without angina pectoris; I87.2 Venous insufficiency (chronic) (peripheral); I73.9 Peripheral vascular disease, unspecified | CPT/HCPCS: 99212 ==

== ENCOUNTER 2024-11-26 00:49 | Inpatient (IN) | payer MEDICARE, OTHER, SELFPAY ==
[2024-11-25 22:24] VITALS: BP 120/74
--- NOTE | 2024-11-25 22:51 | ED.GENMED ---
History of Present Illness
General
Chief Complaint: Breathing Problem
Source: patient and spouse
Time Seen by Provider: 11/25/24 22:35
History of Present Illness
History of Present Illness:
This patient is a 64-year-old male with a history of end-stage renal dialysis, last session on Tuesday due to get next session tomorrow morning, CAD, PAD, CHF, hyperlipidemia, etc. who presents to the emergency department complaints of feeling short
of breath. He states that he is typically short of breath but it got worse tonight and is worse when he lays back. He wonders if it is related to the ascites that he has drained every Tuesday. He denies chest pain or pressure, new back pain,
neck pain, headache, dizziness, nausea, vomiting. His bowel movements have been normal without blood and he denies fever, cough, or sore throat. He did feel sweaty earlier but that has since passed.
Past History
Past History
ED Past Medical History: CAD, CHF, HTN, Hypercholesterolemia, IDDM, ND, Renal failure and Other
ED Past Surgical History: Cardiac, Tonsilectomy and Other
Social History
Tobacco: Non-smoker
Alcohol: None
Drug: None
Personal:
Living: with family
Employment: Employed
Family History
Family History: Negative Diabetes, Hypertension or CAD
Phy Exam
Physical Exam
Physical Exam:
GENERAL: Alert , in no apparent distress but does appear anxious
EYE: pupils equal and reactive
NECK: Supple, no significant adenopathy.
ENT: o/p clr, mmm, no stridor, no drool.
CARDIAC: Regular rate and rhythm .
LUNGS: Equal breath sounds bilaterally, no acute respiratory distress, questionable slight bibasilar rales, no wheezing, no rhonchi
ABDOMEN: Soft, without focal tenderness, distended, no r/g, no cvat
NEUROLOGICAL: Alert and oriented, no focal neuro deficits
SKIN: Warm and dry, skin intact.
MUSCULOSKELETAL: No edema, well perfused. Left BKA
PSYCH: Normal and appropriate interaction.
Scores
Heart Failure Risk
Heart Failure Risk Score: Not Applicable
Course
Orders/Labs/Results
Orders:
Orders
11/25/24 22:50
Pulse Ox/cont/shift [RESP] Stat
Quantity: 1
11/25/24 22:51
Electrocardiogram (*1) Stat
Reason for Study: Other
Other Reason for Exam: chest pain
Cardiac Monitoring- Treatment ONCE
EKG- Treatment ONCE
CR Chest - 2 Views Urgent
Comment:
Reason For Exam: sob, hx hf
11/25/24 23:06
Complete Blood Count/No Diff Urgent
Comprehensive Metabolic Panel Urgent
NT-proBNP Urgent
Troponin I Urgent
11/26/24 00:09
Furosemide [Lasix] 40 mg IV NOW STA
Sodium Zirconium Cyclosilicate [Lokelma] 10 gram PO NOW STA
11/26/24 00:33
Furosemide [Lasix] 80 mg IV NOW STA
11/26/24 00:34
Admit/Transfer Patient As Directed
Co-Sign Provider:
Level of Care: Inpatient admission
Assign to:: Telemetry
Physician / Group: Saurabh
Diagnosis: Volume Overload / CHF, ESRD
Reason for Telemetry: Arrhythmia
Date to Stop Telemetry: 11/29/24
Time to Stop Telemetry: 11:00
Reason for Hospitalization: Volume Overload / CHF, ESRD
Expected length of stay greater than two midnights?: Yes
ELOS- Estimated Length of Stay in days: 4
I certify the patient meets the requirements for IP care: Yes
PRN Pain Medication Management As Directed
May give lesser potent ordered pain med per pt: Yes
preference::
Protocol:: Medication orders for pain may be administered in a
manner that supports deferring to patient preference
when the pt is:
- Requesting an ordered lesser potent pain medication.
Least to most potent pain medications are defined
as: acetaminophen < NSAID < tramadol < opioids
(morphine, oxycodone, hydromorphone).
- Requesting a lesser dose of the same medication IF
ORDERED.
- Requesting a less intrusive route of administration
if both routes are prescribed by the provider (PO <
IV).
11/26/24 00:37
Code Status As Directed
Resuscitation Status: Full Code
11/26/24 04:40
Potassium Urgent
Comment: draw 4 hours after furosemide administered
11/29/24 11:00
DC Protocol for Telemetry ONCE
Abnormal Lab Results
11/25/24
23:06
RBC 3.66 L 10^6/uL
(4.70-6.10)
Hgb 11.2 L g/dL
(13.0-18.0)
Hct 34.5 L %
(39.0-52.0)
MCV 94.3 H fL
(80.0-94.0)
MCHC 32.5 L g/dL
(33.0-37.0)
RDW 14.6 H %
(11.5-14.5)
Sodium 133 L mmol/L
(135-145)
Potassium 6.4 H* mmol/L
(3.5-5.1)
Chloride 97 L mmol/L
(98-107)
BUN 61 H mg/dl
(9-20)
Creatinine 6.9 H* mg/dL
(0.7-1.3)
Glucose 179 H mg/dl
(70-99)
Troponin I 0.045 H* ng/ml
11/25/24 23:06
11/25/24 23:06
Vital Signs
Initial and Last Documented VS:
Initial Vital Signs
Temp Pulse Resp BP Pulse Ox
98.1 F 70 28 120/74 97
11/25/24 22:24 11/25/24 22:24 11/25/24 22:24 11/25/24 22:24 11/25/24 22:24
Last Documented Vital Signs
Temp Pulse Resp BP Pulse Ox
98.1 F 73 19 120/74 97
11/25/24 22:24 11/26/24 00:00 11/26/24 00:00 11/25/24 22:24 11/26/24 00:08
*Pulse Oximetry
SaO2: 95
Oxygen Mode of Delivery: Room air
Patient hypoxic: no
*Critical Care Note
Total Time (30-74mins, 75-104mins- exclusive of procedures): Not Applicable
Update Note
Update Note:
Patient presents to the Emergency Department with ___dyspnea
Number and Complexity of Problems Addressed at the Encounter
� Chronic conditions affecting care:
� Acute Exacerbation and/or Progression of Chronic Illness:
� Differential Diagnosis includes: But not limited to restriction related to increasing ascites, CHF, ACS, pneumonia, etc. etc.
Amount and/or Complexity of Data to be Reviewed and Analyzed
� I performed an independent evaluation of and my interpretation is:
EKG:read by me, nsr with pvc, lad, nl rate, no acute ischemia.
CT:
Xrays:
Laboratory Studies:anemia (baseline) , c/w CK, mild hyperK, trop elevation (without ischemic changes or cp) may be related to CKD, BNP c/w suspected pulmonary edema
Other:
� Review of other/old records reveals: Discharge summary from April 2023 reviewed when patient was admitted with Streptococcus bacteremia but then developed acute hypoxic respiratory insufficiency which improved with dialysis.
� Clinical information was obtained by an independent historian: who is at bedside
� Prescriptions/Medications Considered but not given:
� Further testing considered but not performed:
Risk of Complications and/or Morbidity or Mortality of Patient Management
� Social determinants of health affecting care:
� Discussion with other providers (PCP, Hospitalists, Consultants, etc):
� Escalation of care including admission/observation vs risk of discharge considered:Pt with persistent c/o dypsnea, althouhg pox wnl. Likley multifactorial related to anemia, acute hfref, ESRD, volume restriction with
increasing ascites, etc. Pt will be admitted with plans for HD in AM, consideration of paracentesis before scheduled on Tuesday. Does not meet criteria for emergent HD at this time, given stability. Highly doubt PE given pt maintained on DOAC,
compliant, no hypoxia, no pleuritic cp, etc etc.
ED Attending Note
-
Portions of this chart may have been created with voice recognition software.� Occasional wrong word or��sound alike� substitutions may have occurred due to the inherent limitations of voice recognition software.
Discharge Plan
Departure
Patient Disposition: Admit
Date of Disposition: 11/26/24
Time of Disposition: 00:04
Presentation/result/management discussed w/ accepting MD/DO: Hospitalist
Discharge Problem:
Dyspnea
Interventions
Interventions:
*Risk Screen - Suicide Last Done: 11/25/24 22:24
*General Assessment Last Done: 11/26/24 00:08
*Neglect/Abuse Screening Last Done: 11/25/24 22:24
*ED- Fall Risk Assessment Last Done: 11/26/24 00:08
*ED COVID-19 Vaccine History Last Done: 11/26/24 00:08
ED- Cardiac Assessment Last Done: 11/25/24 23:40
ED- Pulmonary Assessment Last Done: 11/25/24 23:40
[2024-11-25 23:17] LABS: Hematocrit 34.5 % (39.0-52.0); Hemoglobin 11.2 g/dL (13.0-18.0); Mean Corp Hgb Conc. 32.5 g/dL (33.0-37.0); Mean Corpuscular Volume 94.3 fL (80.0-94.0); Platelet Count 141 10^3/uL (130-400); Red Cell Dist. Width 14.6 % (11.5-14.5)
[2024-11-25 23:45] LABS: Troponin I 0.045 ng/ml
[2024-11-25 23:56] LABS: ALT (SGPT) 19 U/L (0-50); AST (SGOT) 20 U/L (17-59); Albumin 3.8 g/dl (3.5-5.0); Alkaline Phosphatase 96 U/L (38-126); Blood Urea Nitrogen 61 mg/dl (9-20); Calcium 8.6 mg/dl (8.4-10.2); Carbon Dioxide 26 mmol/L (22-30); Chloride 97 mmol/L (98-107); Glucose 179 mg/dl (70-99); Potassium 6.4 mmol/L (3.5-5.1); Sodium 133 mmol/L (135-145); Total Protein 7.3 g/dl (6.3-8.2); eGFR 8.33
[2024-11-26] VITALS (7 sets, daily range): BP systolic 66–137; BP diastolic 63–76; BMI 32.2; BMI 32.0; BMI 33.0
[2024-11-26] MEDS: LASIX 80 MG IV (00:43)
--- NOTE | 2024-11-26 00:44 | HPS.HSE ---
Family Physician
-
Family Physician: SUSAN Dunn
Chief Complaint
-
SOB
History of Present Illness
Patient is a 64y M with PMH significant for ASCVD, ESRD on HD, DM-II and persistent ascites who presents to ED complaining of SOB. Patient states that he is typically somewhat SOB - especially with exertion; however, he noted that he was much
more SOB than usual today. He denies any recent illness including sore throat, cough, fevers / chills, etc. He has HD on MWF and underwent his last HD on Tuesday with no issues or interruptions. He denies any recent changes to his medication
regimen. He urinates about 4-5 times daily (small volumes). He is not maintained on any diuretic medications.
Patient denies any chest pain or palpitations. No N/V/D.
He reports abdominal distention and notes that he has been having weekly paracentesis for about a year now. He reports that he has been given no clear etiology for this recurrent ascites.
His last paracentesis was on 11/21 for 4100cc. Repeated cytology has been negative for malignancy.
Medical History
Past Medical History
Past Medical History: Reports Other
Additional Past Medical History:
ASCVD s/p CABG and LLE Stent
Chronic HFrEF
Hypertension
Hyperlipidemia
Diabetes Mellitus
Diabetic Neuropathy
ESRD on HD
Chronic Thrombocytopenia
Hemochromatosis
Cirrhosis with Ascites
Hypothyroidism
Past Surgical History: Reports Other
Additional Past Surgical History:
CABG
LLE Stent
LUE AV Fistula
RLE Angio (07/2024)
LLE BKA (04/2023)
Social History
Tobacco: Former Smoker
Alcohol: None
Personal:
Living: With Family
Family History
Family History: Not pertinent
Allergies / Home Medications
Allergies reflects when Allergies were last updated in [email or web address].
Home Medications with original date entered in [email or web address]
Allergy/Medication List:
Patient is unable to confirm his current medications
If medication reconciliation has not been performed, why?: Medication List N/A
Review of Systems
-
History Source: Patient
A 12 point ROS was completed and negative except as noted: Yes
Constitutional: Reports Fatigue; Denies Fever or Chills
Respiratory: Reports Trouble Breathing; Denies Cough or Hemoptysis
Cardiac: Denies Chest Pain, Diaphoresis or Palpitations
Abdomen/GI: Reports Other (Abdominal fullness / distention.); Denies Abdominal Pain, Nausea, Vomiting or Diarrhea
: Denies Dysuria, Flank Pain or Bleeding
Musculoskeletal: Reports Edema; Denies Joint Pain
Neurological: Denies Dizzy or Headache
Psych: Denies Depression or Anxiety
Physical Exam
Vital Signs
Vital Signs
Temp Pulse Resp BP Pulse Ox
98.1 F 73 19 120/74 97
11/25/24 22:24 11/26/24 00:00 11/26/24 00:00 11/25/24 22:24 11/26/24 00:08
Physical Exam
General: Other (64y M in no acute distress.)
HEENT: Moist mucous membranes and Other (Thick neck. Pos JVD.)
Respiratory: Other (Bibasilar rales / decreased BS at bases bilaterally. No rhonchi.)
Cardiac: S1/S2, Regular Rhythm and Murmur (II/ RITU)
GI: Other (Abdomen is distended and firm. Not tender. No rebound / guarding. Pos abdominal wall edema.)
Musculoskeletal: Other (s/p L BKA. RLE with pitting edema to the upper thigh.)
Neuro: AO x 3
Hematologic/Lymphatic: Other (LUE AVF with pos thrill / bruit.)
Laboratory Results
-
11/25/24 23:06
Laboratory Results
Total Bilirubin 0.7 mg/dl (0.2-1.3) 11/25/24 23:06
AST 20 U/L (17-59) 11/25/24 23:06
ALT 19 U/L (0-50) 11/25/24 23:06
Alkaline Phosphatase 96 U/L (38-126) 11/25/24 23:06
Troponin I 0.045 ng/ml H* 11/25/24 23:06
Impression/Plan
-
A/P: Patient is a 64y M with PMH significant for ASCVD, ESRD on HD, DM-II and recurrent ascites who presents to ED complaining of SOB.
SOB / Subjective Dyspnea
- Admit for further evaluation and treatment.
- Likely multifactorial and due to CHF / volume overload with pulmonary edema as well as recurrent ascites.
- See below for treatment of individual issues.
Acute on Chronic HFrEF
- IV Lasix 80mg IV x 1 now.
- Plan further volume management on HD in AM - but ? consider chronic diuretic dosing given that patient does continue to produce urine and has issues with recurrent ascites, etc?
- Follow I/Os, daily weights, etc.
- Update Echo - last done 1 year ago with EF 35-40% and mild - moderate .
- Follow for clinical improvement.
Cirrhosis with Chronic Ascites
Hemochromatosis
- Paracentesis weekly with most recent on 11/21.
- Consult IR for repeat paracentesis given apparent reaccumulation of ascites.
- Patient states etiology is unknown. Prior imaging (MRI) suggested significant iron deposition in the liver - hemochromatosis?
ESRD on HD
Hyperkalemia
Hyponatremia
- K = 6.4 on initial labs - repeat pending. EKG without significant changes.
- IV Lasix x 1 as noted above.
- Nephrology consulted for HD needs (tomorrow is usual HD day).
- Follow labs / lytes for changes. Monitor on telemetry for now.
- Ordered midodrine with holding parameters based on most recent available med list - needs formal med rec in AM.
ASCVD (CAD and PAD)
- Stable. No current chest pain, palpitations, etc.
- Continue CV medications including ASA, statin, etc.
- Needs formal med rec in AM.
- Elevations in troponin / BNP are not particularly helpful / significant in this ESRD patient.
DM-II with DM Neuropathy
- Stable. Continue basal insulin + SSI coverage.
- Update A1C.
Hypothyroidism
- Continue T4 supplementation - verify dose.
- Update TFTs.
DVT Prophylaxis: Subcut heparin
Code Status: Full
[2024-11-26 02:16] LABS: Glucose - Point of Care 178 mg/dl (70-99)
[2024-11-26] MEDS: TYLENOL 650 MG PO ×2 (02:52→14:47)
[2024-11-26 04:15] LABS: Troponin I 0.054 ng/ml
[2024-11-26] MEDS: SYNTHROID 25 MCG PO (05:34)
--- NOTE | 2024-11-26 06:33 | PTCARENOTE ---
0200- pt admitted to 2107 from ED. pt able to pivot with walker to bed. placed on Tele #8 afib. oriented to room,call quinn and poc. pt verb understanding. pt able to use wheelchair to BRP.
[2024-11-26 07:19] LABS: Hematocrit 36.5 % (39.0-52.0); Hemoglobin 11.4 g/dL (13.0-18.0); Mean Corp Hgb Conc. 31.2 g/dL (33.0-37.0); Mean Corpuscular Volume 96.6 fL (80.0-94.0); Nucleated Red Blood Cells % 0 % (-); Platelet Count 152 10^3/uL (130-400); Red Cell Dist. Width 14.6 % (11.5-14.5)
[2024-11-26 07:23] LABS: Iron 77 ug/dl (49-181)
[2024-11-26 07:29] LABS: ALT (SGPT) 19 U/L (0-50); AST (SGOT) 18 U/L (17-59); Albumin 3.8 g/dl (3.5-5.0); Alkaline Phosphatase 84 U/L (38-126); Blood Urea Nitrogen 69 mg/dl (9-20); Calcium 8.7 mg/dl (8.4-10.2); Carbon Dioxide 27 mmol/L (22-30); Chloride 97 mmol/L (98-107); Estimated Creatinine Clearance 12 ml/min; Glucose 170 mg/dl (70-99); HDL Cholesterol 39 mg/dl; LDL Cholesterol, Calculated 56 mg/dl; Magnesium 2.6 mg/dl (1.6-2.3); Potassium 6.9 mmol/L (3.5-5.1); Sodium 134 mmol/L (135-145); Total Protein 7.3 g/dl (6.3-8.2); Very Low Density Lipoprotein 23 mg/dl (0-30); eGFR 7.91
[2024-11-26 07:33] LABS: Total Iron Binding Capacity 314 ug/dl (261-462)
[2024-11-26 07:37] LABS: Troponin I 0.060 ng/ml
[2024-11-26 07:40] LABS: Glucose - Point of Care 161 mg/dl (70-99)
[2024-11-26 07:59] LABS: Ferritin 560.0 ng/ml (17.9-464.0)
[2024-11-26] MEDS: NOVOLIN R 0.05 UNITS IV (08:06)
[2024-11-26] MEDS: DEXTROSE 50% SYRINGE 25 GRAMS IV (08:07)
[2024-11-26] MEDS: ASPIR LOW (ENTERIC COATED) 81 MG PO (08:08)
[2024-11-26] MEDS: PLAVIX 75 MG PO (08:08)
[2024-11-26] MEDS: HEPARIN 5000 UNITS SC (08:08)
[2024-11-26] MEDS: RENVELA 2400 MG PO (08:08)
[2024-11-26 08:51] LABS: Glycohemoglobin (HgbA1c) 6.9 % (4.0-5.6)
[2024-11-26] MEDS: NOVOLOG FLEXPEN-MODERATE RESISTANCE 1 UNITS SC ×2 (09:11→12:30)
[2024-11-26 09:12] LABS: Glucose - Point of Care 181 mg/dl (70-99)
[2024-11-26 10:22] LABS: Glucose - Point of Care 187 mg/dl (70-99)
--- NOTE | 2024-11-26 11:16 | CARDSERVLU ---
Echocardiogram with Lumason completed after protocol screening completed. Allergies verified.
Patent IV site: __right arm 18 g PC___
IV site flushed with 0.9% NaCl pre and post administration.
Diluted bolus method utilized to enhance visualization of ventricular valerio.
Total volume given: _4___ mL
Patient tolerated all procedures well without complications.
[2024-11-26 11:46] LABS: Glucose - Point of Care 177 mg/dl (70-99)
[2024-11-26 12:15] LABS: Body Fluid Second Tech SS
[2024-11-26 13:15] LABS: Potassium 5.1 mmol/L (3.5-5.1)
--- NOTE | 2024-11-26 13:28 | WOUNDNOTE ---
R PLANTAR GREAT TOE
--- NOTE | 2024-11-26 13:54 | WOUNDNOTE ---
WON RN note: Patient admitted with Dyspnea.
See H&P for complete history. Patient lives with his .
PMH: IDDM, neuropathy, CAD, HTN, GA, CABG, renal failure on HD(mwf) PAD, sleep apnea, CM, LLE angiogram with balloon angioplasty in stent stenosis x 2 (08/04/22, 08/19/22), multiple L heel osteomyelitis-L BKA and venous leg ulcers.
Wound Location and type/assessment: Patient known to service, last seen 05/25/23 s/p L BKA and R leg venous leg ulcers. Since then patient reports L amp site has healed, no issues using prosthetic leg. R Proximal heel/Achilles diabetic ulcer nearly
healed. Patient said he goes to see Dr. Estrada at the wound center, dry dressing being used. Wears compression stocking knee high to R leg. R crow with small skin tear, scant drainage. R great plantar toe with dry eschar, nearly healed. Nail of
great toe with bruising underneath base of nail bed. Patient can ambulate with a walker. Patient dangles leg off side of bed. Sacrum is intact reports nurse Annette, patient currently getting dialysis.
Appetite: Good, on 1800cal diet.
Pressure redistribution devices in place: Accumax bed. Patient turns and sits at side of bed on own. Pillow under leg.
Plan: R leg dressing maintained. R heel dressing changed with new silicone foam. Compression sock re applied. Will confirm orders with hospitalist. Updated nurse Bryant. Care plan to be updated. Recommend patient follow with Dr. Estrada as
scheduled upon discharge and continue same wound care.
--- NOTE | 2024-11-26 13:59 | W.PN.NEPH.HD ---
Assessment
-
Seen on HD. no complaints. VSS, access ok
Progress Note - Hemodialysis
-
Date of Service: November 26, 2024
Duration: 30 minutes and 3 hours
Potassium Bath: 2
Calcium Bath: 2.5
Ultrafiltration: Other (4kg)
Blood Flow: 400
Dialysate Flow: 600
Heparin: 0
EPO: 0
--- NOTE | 2024-11-26 14:02 | W.CON.NEPH ---
Consultation
-
Date/Time Consultation Requested: 11/26/2024 10 AM
Date/Time Consultation Performed: 11/26/2024 10 AM
Requesting Provider: Dr. Ballard
Performing Provider: Dr. Curry
Reason for Consultation: ESRD
Medical History
-
Chief Complaint: End-stage renal
History of Present Illness:
The patient is a 64-year-old male with end-stage renal disease on dialysis Tuesday at the [facility] dialysis unit. He has longstanding diabetes with multiple microvascular complications. However, it is stable on insulin.
He is maintained chronically on midodrine for chronic hypotension. He receives MATTHIEU therapy for his anemia of chronic kidney disease. He presented to the hospital last evening with worsening shortness of breath. He also receives weekly
paracenteses due to chronic liver disease. His last paracentesis was Tuesday last week for 4.1 L. At presentation his potassium was elevated and today it was 6.9.
Past Medical History
1. ESRD on dialysis at Issue since 2019 due to diabetic
� � nephropathy.
2. Diabetes type 2, microvascular complications of neuropathy and
� � nephropathy.
3. CAD with CABG 2017 and subsequent stents in 2021.
4. Hypertension, now relative hypotension.
5. Hyperlipidemia.
6. Pulmonary hypertension.
7. Hypothyroidism.
8. Sleep apnea.
9. Chronic fluid overload due to dietary indiscretions.
10.Ischemic cardiomyopathy, EF 30%.
11.History of peripheral vascular disease and right toe
� � amputation.
12.Recent history of left foot wound and peripheral vascular
� � disease, bilateral lower extremity stenting.
13.Sleep apnea.
14.Sleep apnea surgery.
15.Nasal polypectomy.
16.Left upper extremity AV fistula.
17. Liver disease/ascites
�
Social History
Tobacco: Former Smoker
Alcohol: None
Family History
No chronic kidney disease
Family History: Not Pertinent
Allergies / Home Medications
Allergy/AdvReac Type Severity Reaction Status Date / Time
pollen extracts Allergy Unknown Verified 11/25/24 22:26
scallops Allergy Vomiting Verified 11/25/24 22:26
seafood Allergy Unknown Uncoded 11/25/24 22:26
�Medication �Instructions �Recorded �Confirmed �Type
atorvastatin 80 mg tablet 80 mg PO HS High cholesterol 03/10/20 11/26/24 History
levothyroxine 25 mcg tablet 25 mcg PO DAILY AT 0700 Thyroid 08/18/22 11/26/24 History
acetaminophen 500 mg tablet 1,000 mg PO Q6H PRN mild pain 12/28/22 11/26/24 History
gabapentin 300 mg capsule 600 mg PO .LUNCH Pain 05/13/23 11/26/24 History
insulin glargine 100 unit/mL (3 20 unit SC HS 07/29/23 11/26/24 History
mL) subcutaneous pen (Lantus
Solostar U-100 Insulin)
aspirin 81 mg tablet,delayed 81 mg PO DAILY 01/02/24 11/26/24 History
release
sevelamer carbonate 800 mg tablet 2,400 mg PO TID 01/02/24 11/26/24 History
(Renvela)
midodrine 5 mg tablet 10 mg PO TID@0800,1300,1800 04/13/24 11/26/24 History
insulin aspart U-100 100 unit/mL 10 unit SC TID 04/26/24 11/26/24 History
(3 mL) subcutaneous pen (Novolog
FlexPen U-100 Insulin aspart)
fexofenadine 180 mg tablet 180 mg PO PRN PRN allergies 08/02/24 11/26/24 History
clopidogrel 75 mg tablet 75 mg PO DAILY #90 tabs 08/07/24 11/26/24 Rx
Review of Systems
-
No further shortness of breath.
All other systems: Negative unless noted
Physical Exam
Vital Signs
Vital Signs
Temp Pulse Resp BP Pulse Ox
97.8 F 65 17 131/63 96
11/26/24 11:47 11/26/24 11:47 11/26/24 11:47 11/26/24 11:47 11/26/24 11:47
Lab Results
WBC 8.7 10^3/uL (4.8-10.8) 11/26/24 06:40
RBC 3.78 10^6/uL (4.70-6.10) L 11/26/24 06:40
Hgb 11.4 g/dL (13.0-18.0) L 11/26/24 06:40
Hct 36.5 % (39.0-52.0) L 11/26/24 06:40
Plt Count 152 10^3/uL (130-400) 11/26/24 06:40
Sodium 134 mmol/L (135-145) L 11/26/24 06:41
Potassium 5.1 mmol/L (3.5-5.1) D 11/26/24 12:34
Chloride 97 mmol/L (98-107) L 11/26/24 06:41
Carbon Dioxide 27 mmol/L (22-30) 11/26/24 06:41
BUN 69 mg/dl (9-20) H 11/26/24 06:41
Creatinine 7.2 mg/dL (0.7-1.3) H* 11/26/24 06:41
eGFR 7.91 11/26/24 06:41
Glucose 170 mg/dl (70-99) H 11/26/24 06:41
Calcium 8.7 mg/dl (8.4-10.2) 11/26/24 06:41
Phosphorus 6.3 mg/dl (2.5-4.5) H 11/26/24 06:41
Qpu-S-Uuickqxnqgq Pept > 67952 pg/ml 11/25/24 23:06
Albumin 3.8 g/dl (3.5-5.0) 11/26/24 06:41
Laboratory Tests
08/07/24 11/25/24
06:55 23:06
Creatinine 5.1 H*
Egv-P-Qxkfkrtybgf Pept > [id number]
Physical Exam
Patient is awake alert oriented and in no distress. Mood and affect were pleasant, insight and judgment were good. Pupils are equal round and reactive to light, extraocular movements are intact, sclera were anicteric. Hearing was normal, ears and
nose are intact. Oropharynx was clear. Neck was supple with trachea midline and no thyromegaly. Heart was regular rate and rhythm without rubs. Lower extremities without edema. Lungs were clear to auscultation bilaterally and with normal
excursion. Abdomen was soft, nontender, with normal active bowel sounds, and no hepatosplenomegaly. Skin was without rash and with normal turgor.
Data Reviewed
-
Radiology: Image Personally Visualized and interpreted (Chest x-ray 11/25/2024 by my reading cardiomegaly vascular prominence)
Ultrasound: Report Reviewed by me (Paracentesis 11/26/2024 3.9 L)
Medical Tests (Nuc Med, Echo etc): Image Personally Visualized and interpreted (EKG 11/26/2024 by reading normal sinus rhythm left axis deviation) and Report Reviewed by me (Echocardiogram 11/26/2024 ejection fraction 35% moderate TR)
Labs: Labs Reviewed by me
Old Records: Reviewed
Assessment/Plan
-
Impression;
Shortness of breath
left lower extremity BKA 05/18/2023
End-stage renal disease Tuesday
Diabetes mellitus type II
History of CABG
Diabetic neuropathy
Hypothyroidism
Chronic Hypotension
Anemia
Ischemic cardiomyopathy EF 30%
Pulmonary hypertension
Left upper extremity AV
Plan:
Dialysis today
Weights have been difficult to ascertain on dialysis given his need for weekly paracentesis. He is now receiving a paracentesis earlier than usual
Anemia is controlled
Shortness of breath has resolved and potassium is corrected with dialysis
Okay for DC when ready
--- NOTE | 2024-11-26 14:03 | CM ---
Addendum entered by Daniel Byers 11/26/24 14:17:
Paracentesis weekly for ascites.
Original Note:
Initial assessment completed with patient and . Patient lives with and 20 y/o grandson in a [place] style home, with main floor, basement and attic. Patient remains on the 1 st floor. B/B on 1st. no steps to enter home. There is a ramp.
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 assists with getting into and out of shower. He does drive. He has a LLE prosthesis which his amputation occurred approximately 6 months ago. Recently, he was in [facility] at [place]
and discharged 2 weeks ago. DME is: Prosthesis, quad cane, w/ch, RW, commode and electric scooter. He has been on HD for the past 5 years @ [facility] with chair time -W- @ 5:15 am. No HC-POA. No VA benefits. No psychiatric
hospitalizations. PCP is Dr. Zee Gonzáles. Pharmacy is [facility] in [place] in [place]. Discharge POC: Therapy recommendation for outpatient PT. Appointment was previously scheduled.
--- NOTE | 2024-11-26 14:07 | W.PN.UPDATE ---
Update Note
Progress Note Update
patient admitted just past midnight on todays date
seen earlier this AM, prior to IR and Echo
reports no SOB at that time
Assessment:
SOB/Subjective Dyspnea
- Likely multifactorial and due to CHF/volume overload with pulmonary edema as well as recurrent ascites from cirrhosis in an ESRD patient
- See below for treatment of individual issues.
Acute on Chronic HFrEF
- s/p IV Lasix x 1
- volume managed with HD
- Echo: Mildly dilated left ventricle with moderately reduced systolic function. LVEF 35-40%, Global hypokinesis with severe hypokinesis of the basal to mid inferoseptal/inferior valerio, dilated LA, low flow, low gradient , moderate TR in setting
of PASP 74 mm Hg.
- d/w Nephrology, no appreciable role for long-term oral diuretic therapy
Cirrhosis with Chronic Ascites
Hemochromatosis
- Paracentesis weekly
- s/p Paracentesis 11/26 with 3.9L removed. no SBP on analysis. Albumin with HD.
- path pending; prior path without evidence of malignancy
ESRD on HD
acute Hyperkalemia
Hyponatremia
- K 6.9 this AM requiring insulin/dextrose
- HD today to correct K
- continue TID midodrine
ASCVD (CAD and PAD)
- Stable. No current chest pain, palpitations, etc.
- Continue CV medications including ASA, statin, etc.
- Elevations in troponin / BNP are not particularly helpful / significant in this ESRD patient.
DM-II with DM Neuropathy
- Stable. continue basal insulin + SSI coverage.
- A1c is 6.9%
Hypothyroidism
- Continue T4 supplementation
DVT ppx: SC heparin
Code: Full
More than 30 minutes spent in discharge including
Final examination of the patient
Summarizing hospital stay
Instructions for continuing care to all relevant caregivers
Preparation of discharge records, prescriptions, and referral forms
Total time spent (in minutes): 41
[2024-11-26 14:08] LABS: Glucose - Point of Care 163 mg/dl (70-99)
--- NOTE | 2024-11-26 14:31 | W.DCSUMMARY ---
Discharge Summary
Discharge Data
Date of Admission: 11/26/24
Date of Discharge: 11/26/24
-
Pending Results: No
Hospital Course
64 y/o M, hx of ESRD on HD, cirrhosis with recurrent ascites, chronic CHF presented to ER on 11/25 with SOB - acute on chronic SOB. He denied any other symptoms. He was due for recurrent paracentesis which was performed 11/26 (3.9 L removed,
albumin was given). He also had his usual dialysis session on Tuesday with improvement in symptoms. An Echo was performed; no significant changes from prior testing. Oral diuretics were discussed with nephrology who stated no benefit to initiation
oral diuretics at this time. Patient was discharged home after HD session.
Discharge Plan
-
Patient Disposition: Home (Routine Discharge)
Discharge Diagnosis/Procedures: volume overload, recurrent ascites, dialysis
Condition: Fair
Diet: 2 Gram Sodium, Diabetic, Carb Controlled and Restrict fluids to 64 oz
Activity: As tolerated
Activity Restrictions/Additional Instructions:
Wound Care Instructions
R crow and heel: clean with soap and water, dry dressing, change q 2 days and prn drainage.
compression stocking knee high daily
pillow under calve when in bed
Follow up at wound care center call for an appointment.
No changes on Echocardiogram study. Dr. Ballard discussed with [employer] and no benefit to starting oral diuretic.
Instructions: *PCP/Other Reservation Manager Heart Failure Instructions
Referrals:
Zee Salinas CRNP [Family Provider, Family Practice]
Prescriptions:
Continued
atorvastatin 80 MG tablet
80 mg PO HS
levothyroxine 25 MCG tablet
25 mcg PO DAILY AT 0700
acetaminophen 500 mg Tablet
1,000 mg PO Q6H PRN (Reason: mild pain)
gabapentin 300 mg capsule
600 mg PO .LUNCH
insulin glargine [Lantus Solostar U-100 Insulin] 100 unit/mL (3 mL) Insulin Pen
20 unit SC HS
Patient Comments:
pt took 16 Units of insulin
Rx Instructions:
half dose given as preop
aspirin 81 mg Tablet,Delayed Release (Dr/Ec)
81 mg PO DAILY
sevelamer carbonate [Renvela] 800 mg Tablet
2,400 mg PO TID
midodrine 5 mg tablet
10 mg PO TID@0800,1300,1800
insulin aspart U-100 [Novolog FlexPen U-100 Insulin] 100 unit/mL (3 mL) Insulin Pen
10 unit SC TID
fexofenadine 180 mg Tablet
180 mg PO PRN PRN (Reason: allergies )
clopidogrel 75 mg Tablet
75 mg PO DAILY Qty: 90 0RF
Discharge Orders:
Discharge Patient (As Directed); Ordered 11/26/24
Ordered By: Bernardino Ballard
Discharge Date and Time
Print Language: SWISS
[2024-11-26] MEDS: FLEXBUMIN 25% FOR HEMODIALYSIS 12.5 GRAMS IV (15:09)
--- NOTE | 2024-11-27 09:12 | CM ---
Patient was discharged on 11/26/24 to home with recommendation for outpatient PT/OT. Appointment has been scheduled by family. transported home.
--- NOTE | 2024-11-27 15:01 | W.HF.CON ---
Heart Failure
- LV Function
Left ventricular function study result: LV Ejection fraction 36-40%
Ejection Fraction Percentage: 35-40
- ARNI
Patient already on ARNI: No
Heart Failure ARNI Contraindication: End Stage Renal Disease
- ACEI/ARB
Patient already on ACEI/ARB: No
Heart Failure ACEI/ARB Contraindication: End Stage Renal Disease
- Beta Joni
Patient already on Evidence Based Beta Joni: No
Heart Failure Evidence Based Beta Joni: Hypotension, Mod/Severe Heart Failure
- Mineralocorticord Receptor Antagonist
Patient already on MRA: No
Heart Failure MRA Contraindication: Cr > 2.5 in Men
- SGLT-2 Inhibitor
Patient already on SGLT-2 Inhibitor: No
Heart Failure SGLT-2 Inhibitor Contraindication: Patient currently on Dialysis, eGFR < 25
- NYHA CHF Classification
NYHA CHF Classification Level: Class III - Symptoms w/ min exertion, interferes w/ nml daily activity
- ACC/AHA Stage
ACC/AHA Stage: Stage C: Symptomatic Heart Failure (ESRD)
== END 2024-11-26 16:51 | disposition home or self-care (01) | DRG 291 ==
LOC: 2 SOUTH 00:49
PROVIDERS: Radiology Diagnostic Radiology; ADMITTING PHYSICIAN Hospitalist; ATTENDING PHYSICIAN Internal Medicine; EMERGENCY PHYSICIAN Emergency Medicine; FAMILY PHYSICIAN Nurse Practitioner Family; OTHER PHYSICIAN Specialist
PROC: 0W9G3ZZ Drainage of Peritoneal Cavity, Percutaneous Approach (ICD-10-PCS; 2024-11-26)
PROC: 5A1D70Z Performance of Urinary Filtration, Intermittent, Less than 6 Hours Per Day (ICD-10-PCS; 2024-11-26)
DX: I13.2 Hypertensive heart and chronic kidney disease with heart failure and with stage 5 chronic kidney disease, or end stage renal disease (principal); I50.23 Acute on chronic systolic (congestive) heart failure; N18.6 End stage renal disease; R18.8 Other ascites; E87.1 Hypo-osmolality and hyponatremia; I25.10 Atherosclerotic heart disease of native coronary artery without angina pectoris; E11.51 Type 2 diabetes mellitus with diabetic peripheral angiopathy without gangrene; E11.22 Type 2 diabetes mellitus with diabetic chronic kidney disease; E78.00 Pure hypercholesterolemia, unspecified; E11.40 Type 2 diabetes mellitus with diabetic neuropathy, unspecified; I95.89 Other hypotension; I27.20 Pulmonary hypertension, unspecified; I25.5 Ischemic cardiomyopathy; G47.30 Sleep apnea, unspecified; J30.1 Allergic rhinitis due to pollen; E87.5 Hyperkalemia; D69.6 Thrombocytopenia, unspecified; K74.60 Unspecified cirrhosis of liver; D63.1 Anemia in chronic kidney disease; E83.119 Hemochromatosis, unspecified; E03.9 Hypothyroidism, unspecified; I25.2 Old myocardial infarction; Z95.1 Presence of aortocoronary bypass graft; Z89.512 Acquired absence of left leg below knee; Z87.891 Personal history of nicotine dependence; Z99.2 Dependence on renal dialysis; Z91.013 Allergy to seafood; Z79.890 Hormone replacement therapy; Z79.4 Long term (current) use of insulin; Z79.82 Long term (current) use of aspirin; Z79.899 Other long term (current) drug therapy; Z79.02 Long term (current) use of antithrombotics/antiplatelets
CPT/HCPCS: 49083; 71046; 80048; 80053; 80061; 80076; 82042; 82728; 82962; 83036; 83540; 83550; 83735; 83880; 84100; 84132; 84443; 84484; 85025; 85027; 87015; 87070; 87205; 88112; 88305; 89051; 93005; 93306; 97162; 99285; G0257; P9047; Q9950

== ENCOUNTER → 2024-11-28 10:28 | Outpatient (REF) | payer MEDICARE, OTHER, SELFPAY ==
[2024-11-28 10:35] VITALS: BP 96/66; BP_SYST 70
[2024-11-28 11:25] VITALS: BP 94/53
[2024-11-28 13:15] LABS: Body Fluid Second Tech EF
== END ==
LOC: RADI 10:28
PROVIDERS: ATTENDING PHYSICIAN Student in an Organized Health Care Education/Training Program; FAMILY PHYSICIAN Nurse Practitioner Family; OTHER PHYSICIAN Registered Nurse
DX: R18.8 Other ascites (principal); I87.2 Venous insufficiency (chronic) (peripheral)
CPT/HCPCS: 49083; 89051; 93971

== ENCOUNTER → 2024-12-05 10:42 | Outpatient (REF) | payer MEDICARE, OTHER, SELFPAY ==
[2024-12-05 11:04] VITALS: BP 123/83; BP_SYST 81
[2024-12-05 11:20] VITALS: BP 107/62; BP_SYST 77
[2024-12-05 13:56] LABS: Body Fluid Second Tech ASW
== END ==
LOC: RADI 10:42
PROVIDERS: ATTENDING PHYSICIAN Student in an Organized Health Care Education/Training Program; FAMILY PHYSICIAN Nurse Practitioner Family
DX: R18.8 Other ascites (principal)
CPT/HCPCS: 49083; 89051

== ENCOUNTER → 2024-12-12 10:27 | Outpatient (REF) | payer MEDICARE, OTHER, SELFPAY ==
[2024-12-12 10:39] VITALS: BP 94/57; BP_SYST 82
[2024-12-12 12:49] LABS: Body Fluid Second Tech HB
== END ==
LOC: RADI 10:27
PROVIDERS: ATTENDING PHYSICIAN Student in an Organized Health Care Education/Training Program; FAMILY PHYSICIAN Nurse Practitioner Family
DX: R18.8 Other ascites (principal)
CPT/HCPCS: 49083; 89051

== ENCOUNTER → 2024-12-19 10:26 | Outpatient (REF) | payer MEDICARE, OTHER, SELFPAY ==
[2024-12-19 10:40] VITALS: BP 108/65; BP_SYST 87
[2024-12-19 11:31] VITALS: BP 111/66
[2024-12-19 13:30] LABS: Body Fluid Second Tech CMB
== END ==
LOC: RADI 10:26
PROVIDERS: ATTENDING PHYSICIAN Student in an Organized Health Care Education/Training Program
DX: R18.8 Other ascites (principal)
CPT/HCPCS: 49083; 89051

== ENCOUNTER → 2024-12-26 10:25 | Outpatient (REF) | payer MEDICARE, OTHER, SELFPAY ==
[2024-12-26 12:13] LABS: Body Fluid Second Tech EM
== END ==
LOC: RADI 10:25
PROVIDERS: ATTENDING PHYSICIAN Student in an Organized Health Care Education/Training Program; FAMILY PHYSICIAN Nurse Practitioner Family
DX: R18.8 Other ascites (principal)
CPT/HCPCS: 49083; 89051

== ENCOUNTER → 2025-01-02 10:31 | Outpatient (REF) | payer MEDICARE, OTHER, SELFPAY ==
[2025-01-02 10:38] VITALS: BP 95/55; BP_SYST 80
[2025-01-02 11:37] VITALS: BP 102/62; BP_SYST 75
[2025-01-02 13:14] LABS: Body Fluid Second Tech CMB
== END ==
LOC: RADI 10:31
PROVIDERS: ATTENDING PHYSICIAN Student in an Organized Health Care Education/Training Program; FAMILY PHYSICIAN Nurse Practitioner Family
DX: R18.8 Other ascites (principal)
CPT/HCPCS: 49083; 89051

== ENCOUNTER → 2025-01-09 10:32 | Outpatient (REF) | payer MEDICARE, OTHER, SELFPAY ==
[2025-01-09 10:45] VITALS: BP 106/60; BP_SYST 79
[2025-01-09 11:25] VITALS: BP 112/59; BP_SYST 79
[2025-01-09 12:59] LABS: Body Fluid Second Tech CMB
== END ==
LOC: RADI 10:32
PROVIDERS: ATTENDING PHYSICIAN Student in an Organized Health Care Education/Training Program; FAMILY PHYSICIAN Nurse Practitioner Family
DX: R18.8 Other ascites (principal)
CPT/HCPCS: 49083; 89051

== ENCOUNTER → 2025-01-16 10:19 | Outpatient (REF) | payer MEDICARE, OTHER, SELFPAY ==
[2025-01-16 10:38] VITALS: BP 98/69; BP_SYST 79
[2025-01-16 11:16] VITALS: BP 124/60
[2025-01-16 11:24] LABS: Body Fluid Second Tech SS
== END ==
LOC: RADI 10:19
PROVIDERS: ATTENDING PHYSICIAN Student in an Organized Health Care Education/Training Program; FAMILY PHYSICIAN Nurse Practitioner Family
DX: R18.8 Other ascites (principal)
CPT/HCPCS: 49083; 89051

== ENCOUNTER → 2025-01-23 10:30 | Outpatient (REF) | payer MEDICARE, OTHER, SELFPAY ==
[2025-01-23 10:39] VITALS: BP 104/53; BP_SYST 86
[2025-01-23 11:01] VITALS: BP 101/50
[2025-01-23 12:05] LABS: Body Fluid Second Tech EM
== END ==
LOC: RADI 10:30
PROVIDERS: ATTENDING PHYSICIAN Student in an Organized Health Care Education/Training Program
DX: R18.8 Other ascites (principal)
CPT/HCPCS: 49083; 89051

== ENCOUNTER 2025-01-25 07:58 | Day surgery (SDC) | payer MEDICARE, OTHER, SELFPAY ==
[2025-01-25] VITALS (14 sets, daily range): BP systolic 108–127; BP diastolic 63–76; BMI 31.0
[2025-01-25 08:51] LABS: Glucose - Point of Care 163 mg/dl (70-99)
[2025-01-25] MEDS: LOW STRENGTH ASPIRIN 81 MG PO (08:54)
[2025-01-25] MEDS: LASIX 80 MG IV (11:04)
--- NOTE | 2025-01-25 15:55 | ITS.CL.PN ---
[employer] - Procedure Note
Procedure
Procedure Note:
CARDIAC CATHETERIZATION REPORT
Date of Procedure: 01/25/2025
Referring: Dr. Dio Brennan MD
Indication: shortness of breath, aortic valve stenosis
PROCEDURE(S)
1. right heart catheterization
2. left heart catheterization
3. coronary angiography
ACCESS
1. 6F right common femoral artery (closure: manual hemostasis)
2. 6F right femoral vein (closure: manual hemostasis)
CATHETERS
1. 5F Lapel-Reese
2. 6F JR4
3. 6F JL4
MODERATE SEDATION: 35 minutes of moderate sedation was utilized. An independent emergency medical services coordinator was present to assist with and help manage the patient's level of consciousness and physiologic status.
HEMODYNAMIC DATA
LV 134/18 (EDP 31) mmHg
AO 133/76 (mean 98) mmHg
RA 25 mmHg
RV 74/15 (EDP 27) mmHg
PA 88/39 (mean 59) mmHg
PCWP 30 mmHg
SaO2 88.7%
SvO2 54.5%
Hb 11.5 g/dL
Weight 95.2 kg
CO/CI 4.92/2.34 L/min/m2
SVR 1186 dsc*-5
PVR 5.9 Wood units
Valve study: mean gradient 13.3 mmHg giving valve area of 1.52 cm2 (at HR 75, SVI 31.4 mL/m2)
CORONARY ANGIOGRAPHY
Dominance: Right
LM: Moderate caliber vessel with mild distal narrowing.
LAD: The vessel is totally occluded proximally. The mid and distal LAD fills via a widely patent left internal mammary graft which touches down into the LAD. There is excellent distal runoff with only mild LAD disease distal to the touchdown site.
LCx: Large vessel with a totally occluded OM1 and several small LPL branches. There are patent stents in the proximal to mid circumflex with mild ISR.
RCA: The RCA is known to be ostially occluded and was not selectively engaged. The moderate RPDA fills via the distal limb of the vein graft and there is backfilling into the AV groove to supply several small right posterolateral branches
BYPASS GRAFT ANGIOGRAPHY:
TAYLOR-LAD: the left internal mammary graft to the mid LAD is widely patent with excellent runoff
SVG-OM-RPDA: the sequential vein graft to OM has an occluded touchdown to the OM but is patent in its continuation to the distal anastomosis to the RPDA providing excellent runoff
RADIATION: dose 774 mGy; DAP 66 Gy*cm2; fluoroscopy time 10.3 min
CONCLUSIONS
1. Severe triple vessel coronary artery disease relatively unchanged from 2021 angiography
2. 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
3. Moderate aortic valve stenosis based on dual lumen catheter evaluation
RECOMMENDATIONS
1. Volume removal via diuresis and dialysis
2. GDMT for HFrEF
3. Re-evaluation of pre-capillary pulmonary hypertension with RHC once euvolemic to determine any role for targeting pulmonary hypertension therapies
Copy to: Dr. Dio Brennan MD (apple packing header); SUSAN Lowery (PCP)
Signed: Fidel Somers MD, PhD
== END 2025-01-25 14:15 | disposition home or self-care (01) ==
LOC: CATH 07:58
PROVIDERS: ATTENDING PHYSICIAN Internal Medicine Cardiovascular Disease; FAMILY PHYSICIAN Nurse Practitioner Family; OTHER PHYSICIAN Internal Medicine Cardiovascular Disease
DX: I35.0 Nonrheumatic aortic (valve) stenosis (principal); I21.09 ST elevation (STEMI) myocardial infarction involving other coronary artery of anterior wall; I25.10 Atherosclerotic heart disease of native coronary artery without angina pectoris; I27.20 Pulmonary hypertension, unspecified; I11.0 Hypertensive heart disease with heart failure; I50.22 Chronic systolic (congestive) heart failure; I45.10 Unspecified right bundle-branch block
CPT/HCPCS: 99152; 99153; 82962; 93005; 93460; 93461; C1769; C1894; Q9967

== ENCOUNTER → 2025-01-29 12:58 | Outpatient (REF) | payer MEDICARE, OTHER, SELFPAY ==
--- NOTE | 2025-01-29 14:15 | CARDSERVLU ---
Echocardiogram with Lumason completed after protocol screening completed. Allergies verified.
Patent IV site: _Rt FA____
IV site flushed with 0.9% NaCl pre and post administration.
Diluted bolus method utilized to enhance visualization of ventricular valerio.
Total volume given: _5.5___ mL
Patient tolerated all procedures well without complications.
== END ==
LOC: RCS 12:58
PROVIDERS: ATTENDING PHYSICIAN Internal Medicine Cardiovascular Disease
DX: I25.10 Atherosclerotic heart disease of native coronary artery without angina pectoris (principal)
CPT/HCPCS: 93306; Q9950

== ENCOUNTER → 2025-01-30 10:20 | Outpatient (REF) | payer MEDICARE, OTHER, SELFPAY ==
[2025-01-30 10:50] VITALS: BP 108/69; BP_SYST 69
[2025-01-30 11:28] VITALS: BP 103/63
[2025-01-30 12:57] LABS: Body Fluid Second Tech SS
== END ==
LOC: RADI 10:20
PROVIDERS: ATTENDING PHYSICIAN Student in an Organized Health Care Education/Training Program
DX: R18.8 Other ascites (principal)
CPT/HCPCS: 49083; 87015; 87070; 87205; 89051

== ENCOUNTER → 2025-02-06 10:28 | Outpatient (REF) | payer MEDICARE, OTHER, SELFPAY ==
[2025-02-06 10:44] VITALS: BP 108/60; BP_SYST 80
[2025-02-06 11:20] VITALS: BP 103/59
[2025-02-06 11:50] LABS: Body Fluid Second Tech HB
== END ==
LOC: RADI 10:28
PROVIDERS: ATTENDING PHYSICIAN Student in an Organized Health Care Education/Training Program; FAMILY PHYSICIAN Nurse Practitioner Family
DX: R18.8 Other ascites (principal)
CPT/HCPCS: 49083; 89051

== ENCOUNTER → 2025-02-13 08:27 | Outpatient (REF) | payer MEDICARE, OTHER, SELFPAY ==
[2025-02-13 08:51] VITALS: BP 117/68; BP_SYST 66
[2025-02-13 09:16] VITALS: BP 107/65
[2025-02-13 11:30] LABS: Body Fluid Second Tech FB
== END ==
LOC: RADI 08:27
PROVIDERS: ATTENDING PHYSICIAN Student in an Organized Health Care Education/Training Program; FAMILY PHYSICIAN Nurse Practitioner Family
DX: R18.8 Other ascites (principal)
CPT/HCPCS: 49083; 89051

== ENCOUNTER → 2025-02-20 08:28 | Outpatient (REF) | payer MEDICARE, OTHER, SELFPAY ==
[2025-02-20 08:50] VITALS: BP 113/71; BP_SYST 74
[2025-02-20 09:36] VITALS: BP 98/62
[2025-02-20 10:47] LABS: Body Fluid Second Tech SS
== END ==
LOC: RADI 08:28
PROVIDERS: ATTENDING PHYSICIAN Student in an Organized Health Care Education/Training Program; FAMILY PHYSICIAN Nurse Practitioner Family
DX: R18.8 Other ascites (principal)
CPT/HCPCS: 49083; 89051